=== PATIENT | male | born 1965 | race Hispanic/Latino ===

== ENCOUNTER 2018-04-09 17:29 | Inpatient (IN) | payer MEDICARE ==
[~2018-04-09] VITALS: Ht 162.6 cm; Wt 108.6 kg
[~2018-04-09 17:29] MED LIST: ASPI-1181 PO; CARV12.511 PO; CLOP75TA14 PO; GABA-529 PO; INSU100I21 SQ; LIRA0.6P SQ; LOSA25TA21 PO; SIMV40TA59 PO; SITA100T12 PO; TERB250T4 PO
[2018-04-09 17:59] LABS: EOSINOPHILS % (AUTO) 1.6 % (0.0-8.0); HEMATOCRIT 28.4 % (42-54); MEAN CORPUSCULAR HEMOGLOBIN 28.4 pg (27.0-33.0); MEAN CORPUSCULAR HGB CONC 34.2 g/dL (32.0-36.0); MEAN CORPUSCULAR VOLUME 83.1 fL (79-99); MONOCYTES % (AUTO) 6.7 % (3.0-13.0); NEUTROPHILS % (AUTO) 80.7 % (40.0-77.0); PLATELET COUNT (AUTO) 194 K/uL (130-400); RED BLOOD CELL COUNT(AUTO) 3.41 MIL/uL (4.50-6.20); RED CELL DISTRIBUTION WIDTH 14.5 % (11.0-15.5)
[2018-04-09 18:05] LABS: ABG BASE EXCESS 3.3 mmol/L (-2.0-3.0); ABG HCO3 29.7 mmol/L (21.0-28.0); ABG OXYGEN SATURATION 95.9 % (95.0-99.0); ABG PCO2 52 mmHg (35-48)
[2018-04-09 18:08] LABS: CREATININE 1.5 mg/dL (0.5-1.5); POTASSIUM 4.4 mmol/L (3.5-5.1)
[2018-04-09 18:11] LABS: INR 1.09 (0.85-1.15); PARTIAL THROMBOPLASTIN TIME 33.4 SEC (26.3-35.5); PROTHROMBIN TIME 11.4 SEC (9.6-11.6)
[2018-04-09] MEDS ORDERED: ASPIRIN 325 MG TABLET ONE (18:11)
[2018-04-09] MEDS ORDERED: FUROSEMIDE 10 MG/ML 4ML VIAL ONE (18:11)
[2018-04-09 18:13] LABS: ALBUMIN 2.4 g/dL (3.5-5.0); BILIRUBIN,TOTAL 0.3 mg/dL (0.2-1.0)
[2018-04-09 18:35] LABS: B-TYPE NATRIURETIC PEPTIDE 300 pg/mL (0-100)
[2018-04-09] MEDS ORDERED: ONDANSETRON HCL MDV 20ML 2 MG/ML VIAL IVP PRN (21:45)
[2018-04-09] MEDS ORDERED: CLONIDINE HCL 0.1 MG TABLET PO PRN (21:45)
[2018-04-09] MEDS ORDERED: LACTULOSE 20 GM/30 ML UDCUP PO PRN (21:45)
[2018-04-09] MEDS ORDERED: MORPHINE SULFATE 4 MG/1ML SYG IVP PRN (21:45)
[2018-04-09] MEDS ORDERED: ACETAMINOPHEN 325 MG TAB PO PRN ×2 (21:45)
[2018-04-09] MEDS ORDERED: METHYLPREDNISOLONE SOD SUCC 125MG/2ML VIAL IVP SCH (23:45)
[2018-04-09] MEDS ORDERED: AZITHROMYCIN 500MG+NS 250ML 250 ML IV SCH (23:45)
[2018-04-09] MEDS ORDERED: HYDRALAZINE HCL 20 MG/ML VIAL IV PRN (23:45)
[2018-04-09] MEDS: NITROGLYCERIN 1GM/1 INCH PACKET TD SCH (23:45)
[2018-04-10] MEDS ORDERED: METHYLPREDNISOLONE SOD SUCC 125MG/2ML VIAL ONE ×2 (01:10→08:33)
[2018-04-10] MEDS ORDERED: AZITHROMYCIN 500MG+NS 250ML 250 ML IV ONE (01:11)
[2018-04-10] MEDS ORDERED: NITROGLYCERIN 1GM/1 INCH PACKET TD ONE ×2 (01:11→08:34)
[2018-04-10] MEDS: FUROSEMIDE 10 MG/ML 4ML VIAL IV SCH ×2 (06:00→17:06)
[2018-04-10] MEDS ORDERED: FUROSEMIDE 10 MG/ML 4ML VIAL ONE (06:07)
[2018-04-10 06:20] LABS: BASOPHILS % (AUTO) 0.2 % (0.0-5.0); EOSINOPHILS % (AUTO) 0.1 % (0.0-8.0); HEMATOCRIT 30.7 % (42-54); LYMPHOCYTES % (AUTO) 4.2 % (21.0-51.0); MEAN CORPUSCULAR HGB CONC 33.7 g/dL (32.0-36.0); MEAN CORPUSCULAR VOLUME 83.2 fL (79-99); MONOCYTES % (AUTO) 1.4 % (3.0-13.0); NEUTROPHILS % (AUTO) 94.1 % (40.0-77.0); NUCLEATED RED BLOOD CELLS 0.1 % (0.0-0.19); PLATELET COUNT (AUTO) 203 K/uL (130-400); RED BLOOD CELL COUNT(AUTO) 3.69 MIL/uL (4.50-6.20); RED CELL DISTRIBUTION WIDTH 14.2 % (11.0-15.5); WHITE BLOOD COUNT (AUTO) 13.2 K/uL (4.8-10.8)
[2018-04-10 06:33] LABS: HEMOGLOBIN A1C 8.2 % (4.0-6.0)
[2018-04-10 06:48] LABS: CARBON DIOXIDE 31 mmol/L (21-32); CHLORIDE 103 mmol/L (101-111); CREATINE KINASE MB 1.5 ng/mL (0.5-3.6); CREATINE KINASE, TOTAL 120 U/L (21-232); CREATININE 1.6 mg/dL (0.5-1.5); GLOMERULAR FILTR. RATE CALC 48 mL/min (>60); GLUCOSE,RANDOM 327 mg/dL (70-105); MYOGLOBIN 72 ng/mL (10-92); SODIUM SERUM 137 mmol/L (136-145); THYROID STIMULATING HORMONE 1.02 uIU/mL (0.36-3.74); TROPONIN I < 0.04 ng/mL (0.00-0.06); UREA NITROGEN, BLOOD 31 mg/dL (7-18)
[2018-04-10] MEDS: NITROGLYCERIN 1GM/1 INCH PACKET TD SCH ×3 (07:45→22:31)
[2018-04-10] MEDS ORDERED: FAMOTIDINE 20MG TAB 20 MG TAB ONE (08:33)
[2018-04-10] MEDS: FAMOTIDINE 20MG TAB 20 MG TAB PO SCH ×2 (09:00→22:31)
[2018-04-10] MEDS: METHYLPREDNISOLONE SOD SUCC 125MG/2ML VIAL IVP SCH ×2 (09:00→22:30)
[2018-04-10 11:25] VITALS: BP 151/89
[2018-04-10] MEDS ORDERED: ATOR40TA71 PO (12:21)
[2018-04-10] MEDS ORDERED: NITR0.4T50 SL (12:21)
[2018-04-10] MEDS ORDERED: INSNOV SQ (12:21)
[2018-04-10] MEDS ORDERED: INSU100I21 SQ (12:21)
[2018-04-10] MEDS ORDERED: POTA-9 PO (12:21)
[2018-04-10] MEDS ORDERED: ICOS1CAP PO (12:21)
[2018-04-10] MEDS ORDERED: CARV3.12 PO (12:21)
[2018-04-10] MEDS ORDERED: ISOS30TA6 PO (12:21)
[2018-04-10] MEDS ORDERED: INSU100V12 SQ (12:21)
[2018-04-10] MEDS ORDERED: FURO40TA5 PO (12:21)
[2018-04-10] MEDS ORDERED: DEXTROSE 50%-WATER 50 ML DISP.SYRIN IV PRN (12:45)
[2018-04-10] MEDS ORDERED: GLUCAGON 1MG KIT 1 MG ML IM PRN (12:45)
[2018-04-10] MEDS: LEVOFLOXACIN 500 MG/D5W 100 ML 100 ML IV SCH (13:02)
[2018-04-10] MEDS ORDERED: NITROGLYCERIN 0.4 MG SL TAB SL SCH (14:45)
[2018-04-10] MEDS: INSULIN HUMULIN R 100 UNIT/ML 3ML SQ SCH ×4 (16:30→22:49)
[2018-04-10 16:35] VITALS: BP 184/79
[2018-04-10] MEDS: BUDESONIDE 0.5 MG/2 ML INH IH SCH (19:02)
[2018-04-10 19:39] VITALS: BP 153/77
[2018-04-10] MEDS: ATORVASTATIN CALCIUM 40 MG TABLET PO SCH (22:31)
[2018-04-10] MEDS: CARVEDILOL 3.125 MG TABLET PO SCH (22:31)
[2018-04-10 23:35] VITALS: BP 142/69
[2018-04-11] VITALS (7 sets, daily range): BP systolic 100–162; BP diastolic 56–84
[2018-04-11 05:11] LABS: HEMATOCRIT 31.6 % (42-54); MEAN CORPUSCULAR HEMOGLOBIN 27.5 pg (27.0-33.0); MEAN CORPUSCULAR HGB CONC 33.7 g/dL (32.0-36.0); MEAN CORPUSCULAR VOLUME 81.5 fL (79-99); PLATELET COUNT (AUTO) 270 K/uL (130-400); RED BLOOD CELL COUNT(AUTO) 3.87 MIL/uL (4.50-6.20); WHITE BLOOD COUNT (AUTO) 16.3 K/uL (4.8-10.8)
[2018-04-11 05:19] LABS: CREATININE 1.6 mg/dL (0.5-1.5); POTASSIUM 4.4 mmol/L (3.5-5.1)
[2018-04-11 05:24] LABS: B-TYPE NATRIURETIC PEPTIDE 515 pg/mL (0-100)
[2018-04-11] MEDS: NITROGLYCERIN 1GM/1 INCH PACKET TD SCH ×3 (06:08→23:19)
[2018-04-11] MEDS: FUROSEMIDE 10 MG/ML 4ML VIAL IV SCH ×2 (06:08→16:30)
[2018-04-11] MEDS: INSULIN HUMULIN R 100 UNIT/ML 3ML SQ SCH ×4 (06:11→20:43)
[2018-04-11] MEDS: BUDESONIDE 0.5 MG/2 ML INH IH SCH ×2 (07:33→18:28)
[2018-04-11] MEDS: ASPIRIN 81 MG EC TAB PO SCH (09:24)
[2018-04-11] MEDS: ISOSORBIDE MONO 30MG TAB SR PO SCH (09:25)
[2018-04-11] MEDS: METHYLPREDNISOLONE SOD SUCC 125MG/2ML VIAL IVP SCH ×2 (09:25→20:35)
[2018-04-11] MEDS: FAMOTIDINE 20MG TAB 20 MG TAB PO SCH ×2 (09:25→20:34)
[2018-04-11] MEDS: CARVEDILOL 3.125 MG TABLET PO SCH ×2 (09:25→20:34)
[2018-04-11] MEDS: CLOPIDOGREL BISULFATE 75 MG TAB PO SCH (09:25)
[2018-04-11] MEDS: LOSARTAN 50 MG TABLET PO SCH (09:26)
[2018-04-11] MEDS: LEVOFLOXACIN 500 MG/D5W 100 ML 100 ML IV SCH (11:37)
[2018-04-11] MEDS: DOXYCYCLINE 100MG+NS 250ML 250 ML IV SCH ×2 (13:06→20:35)
[2018-04-11] MEDS: ATORVASTATIN CALCIUM 40 MG TABLET PO SCH (20:35)
[2018-04-12 03:58] LABS: HEMATOCRIT 30.8 % (42-54); MEAN CORPUSCULAR HEMOGLOBIN 28.1 pg (27.0-33.0); MEAN CORPUSCULAR HGB CONC 34.5 g/dL (32.0-36.0); MEAN CORPUSCULAR VOLUME 81.3 fL (79-99); PLATELET COUNT (AUTO) 289 K/uL (130-400); RED BLOOD CELL COUNT(AUTO) 3.79 MIL/uL (4.50-6.20); RED CELL DISTRIBUTION WIDTH 14.1 % (11.0-15.5); WHITE BLOOD COUNT (AUTO) 16.9 K/uL (4.8-10.8)
[2018-04-12 03:59] LABS: CREATININE 1.8 mg/dL (0.5-1.5); POTASSIUM 4.2 mmol/L (3.5-5.1)
[2018-04-12 04:04] VITALS: BP 118/68
[2018-04-12] MEDS: INSULIN HUMULIN R 100 UNIT/ML 3ML SQ SCH ×6 (05:35→22:33)
[2018-04-12] MEDS: FUROSEMIDE 10 MG/ML 4ML VIAL IV SCH ×2 (05:35→17:12)
[2018-04-12] MEDS: BUDESONIDE 0.5 MG/2 ML INH IH SCH ×2 (06:50→18:55)
[2018-04-12 07:30] VITALS: BP 128/73
[2018-04-12] MEDS: LEVOFLOXACIN 500 MG/D5W 100 ML 100 ML IV SCH (07:48)
[2018-04-12] MEDS: ASPIRIN 81 MG EC TAB PO SCH (07:48)
[2018-04-12] MEDS: METHYLPREDNISOLONE SOD SUCC 125MG/2ML VIAL IVP SCH (07:48)
[2018-04-12] MEDS: FAMOTIDINE 20MG TAB 20 MG TAB PO SCH ×2 (07:48→20:32)
[2018-04-12] MEDS: ISOSORBIDE MONO 30MG TAB SR PO SCH (07:49)
[2018-04-12] MEDS: LOSARTAN 50 MG TABLET PO SCH (07:49)
[2018-04-12] MEDS: CLOPIDOGREL BISULFATE 75 MG TAB PO SCH (07:49)
[2018-04-12] MEDS: CARVEDILOL 3.125 MG TABLET PO SCH ×2 (07:49→20:32)
[2018-04-12] MEDS: DOXYCYCLINE 100MG+NS 250ML 250 ML IV SCH (10:09)
[2018-04-12 11:20] VITALS: BP 149/84
[2018-04-12 16:05] VITALS: BP 156/76
[2018-04-12 19:31] VITALS: BP 138/77
[2018-04-12] MEDS: ATORVASTATIN CALCIUM 40 MG TABLET PO SCH (20:32)
[2018-04-12 23:20] VITALS: BP 109/65
[2018-04-13 03:47] LABS: HEMATOCRIT 32.5 % (42-54); MEAN CORPUSCULAR HGB CONC 33.5 g/dL (32.0-36.0); MEAN CORPUSCULAR VOLUME 80.5 fL (79-99); PLATELET COUNT (AUTO) 328 K/uL (130-400); RED BLOOD CELL COUNT(AUTO) 4.04 MIL/uL (4.50-6.20); RED CELL DISTRIBUTION WIDTH 13.9 % (11.0-15.5); WHITE BLOOD COUNT (AUTO) 16.3 K/uL (4.8-10.8)
[2018-04-13 03:59] VITALS: BP 117/65
[2018-04-13 04:00] LABS: B-TYPE NATRIURETIC PEPTIDE 221 pg/mL (0-100)
[2018-04-13 04:12] LABS: CREATININE 1.6 mg/dL (0.5-1.5); POTASSIUM 3.7 mmol/L (3.5-5.1)
[2018-04-13] MEDS: FUROSEMIDE 10 MG/ML 4ML VIAL IV SCH (06:05)
[2018-04-13] MEDS: INSULIN HUMULIN R 100 UNIT/ML 3ML SQ SCH ×4 (06:20→21:11)
[2018-04-13] MEDS: BUDESONIDE 0.5 MG/2 ML INH IH SCH ×2 (06:25→18:29)
[2018-04-13 08:02] VITALS: BP 118/65
[2018-04-13] MEDS: CARVEDILOL 3.125 MG TABLET PO SCH ×2 (10:10→21:18)
[2018-04-13] MEDS: PREDNISONE 10 MG TABLET PO SCH (10:10)
[2018-04-13] MEDS: LOSARTAN 50 MG TABLET PO SCH (10:10)
[2018-04-13] MEDS: CLOPIDOGREL BISULFATE 75 MG TAB PO SCH (10:10)
[2018-04-13] MEDS: FAMOTIDINE 20MG TAB 20 MG TAB PO SCH ×2 (10:11→21:18)
[2018-04-13] MEDS: ASPIRIN 81 MG EC TAB PO SCH (10:11)
[2018-04-13] MEDS: LEVOFLOXACIN 500 MG/D5W 100 ML 100 ML IV SCH (10:11)
[2018-04-13] MEDS: ISOSORBIDE MONO 30MG TAB SR PO SCH (10:11)
[2018-04-13] MEDS: FUROSEMIDE 40 MG TABLET PO SCH ×2 (10:11→16:33)
[2018-04-13 12:12] VITALS: BP 94/61
[2018-04-13 16:00] VITALS: BP 112/62
[2018-04-13] MEDS ORDERED: POTASSIUM CHLORIDE 10% ELIXIR 20 MEQ/15 ML UDCUP PO PRN (16:45)
[2018-04-13] MEDS ORDERED: POTASSIUM CHLORIDE 20 MEQ ERTAB PO PRN (16:45)
[2018-04-13 19:16] VITALS: BP 127/65
[2018-04-13] MEDS ORDERED: POTASSIUM CHLORIDE 10 MEQ/TAB.SA PO ONE ×2 (21:10)
[2018-04-13] MEDS: ATORVASTATIN CALCIUM 40 MG TABLET PO SCH (21:17)
[2018-04-14] VITALS (7 sets, daily range): BP systolic 98–163; BP diastolic 56–88
[2018-04-14 04:42] LABS: MEAN CORPUSCULAR HEMOGLOBIN 28.2 pg (27.0-33.0); MEAN CORPUSCULAR HGB CONC 34.9 g/dL (32.0-36.0); MEAN CORPUSCULAR VOLUME 80.7 fL (79-99); PLATELET COUNT (AUTO) 316 K/uL (130-400); RED BLOOD CELL COUNT(AUTO) 4.21 MIL/uL (4.50-6.20); WHITE BLOOD COUNT (AUTO) 16.7 K/uL (4.8-10.8)
[2018-04-14 04:50] LABS: CREATININE 1.7 mg/dL (0.5-1.5); POTASSIUM 3.8 mmol/L (3.5-5.1)
[2018-04-14 05:03] LABS: B-TYPE NATRIURETIC PEPTIDE 130 pg/mL (0-100)
[2018-04-14] MEDS ORDERED: POTASSIUM CHLORIDE 10 MEQ/TAB.SA PO ONE ×4 (05:15→21:22)
[2018-04-14] MEDS: INSULIN HUMULIN R 100 UNIT/ML 3ML SQ SCH ×4 (06:01→21:19)
[2018-04-14] MEDS: BUDESONIDE 0.5 MG/2 ML INH IH SCH ×2 (06:23→18:13)
[2018-04-14] MEDS: PREDNISONE 10 MG TABLET PO SCH (09:46)
[2018-04-14] MEDS: CARVEDILOL 3.125 MG TABLET PO SCH ×2 (09:46→21:27)
[2018-04-14] MEDS: FAMOTIDINE 20MG TAB 20 MG TAB PO SCH ×2 (09:46→21:27)
[2018-04-14] MEDS: ISOSORBIDE MONO 30MG TAB SR PO SCH (09:46)
[2018-04-14] MEDS: LEVOFLOXACIN 500 MG/D5W 100 ML 100 ML IV SCH (09:46)
[2018-04-14] MEDS: CLOPIDOGREL BISULFATE 75 MG TAB PO SCH (09:46)
[2018-04-14] MEDS: ASPIRIN 81 MG EC TAB PO SCH (09:46)
[2018-04-14] MEDS: LOSARTAN 50 MG TABLET PO SCH (09:46)
[2018-04-14] MEDS: INSULIN GLARGINE 100 UNITS/ML 10 ML VIAL SQ SCH (21:18)
[2018-04-14] MEDS: ATORVASTATIN CALCIUM 40 MG TABLET PO SCH (21:27)
[2018-04-15 04:05] VITALS: BP 130/78
[2018-04-15 04:34] LABS: HEMATOCRIT 36.4 % (42-54); MEAN CORPUSCULAR HEMOGLOBIN 26.9 pg (27.0-33.0); MEAN CORPUSCULAR HGB CONC 33.3 g/dL (32.0-36.0); MEAN CORPUSCULAR VOLUME 80.7 fL (79-99); PLATELET COUNT (AUTO) 335 K/uL (130-400); RED BLOOD CELL COUNT(AUTO) 4.51 MIL/uL (4.50-6.20); RED CELL DISTRIBUTION WIDTH 13.9 % (11.0-15.5); WHITE BLOOD COUNT (AUTO) 18.3 K/uL (4.8-10.8)
[2018-04-15 04:47] LABS: CREATININE 1.4 mg/dL (0.5-1.5); POTASSIUM 3.9 mmol/L (3.5-5.1)
[2018-04-15] MEDS: INSULIN HUMULIN R 100 UNIT/ML 3ML SQ SCH ×4 (06:17→22:21)
[2018-04-15] MEDS: INSULIN GLARGINE 100 UNITS/ML 10 ML VIAL SQ SCH ×2 (06:23→22:20)
[2018-04-15] MEDS: BUDESONIDE 0.5 MG/2 ML INH IH SCH ×2 (06:23→18:44)
[2018-04-15 08:06] VITALS: BP 116/73
[2018-04-15] MEDS: ISOSORBIDE MONO 30MG TAB SR PO SCH (08:59)
[2018-04-15] MEDS: CLOPIDOGREL BISULFATE 75 MG TAB PO SCH (08:59)
[2018-04-15] MEDS: PREDNISONE 10 MG TABLET PO SCH (08:59)
[2018-04-15] MEDS: CARVEDILOL 3.125 MG TABLET PO SCH ×2 (08:59→22:29)
[2018-04-15] MEDS: FAMOTIDINE 20MG TAB 20 MG TAB PO SCH ×2 (08:59→22:28)
[2018-04-15] MEDS: ASPIRIN 81 MG EC TAB PO SCH (08:59)
[2018-04-15] MEDS ORDERED: CEFTAZIDIME 1GM+NS 50ML 50 ML IV SCH (09:00)
[2018-04-15] MEDS: LOSARTAN 50 MG TABLET PO SCH (09:00)
[2018-04-15] MEDS: CEFTAZIDIME PENTAHYDRATE 1 GM/VIAL IVP SCH ×2 (09:00→22:29)
[2018-04-15] MEDS: LEVOFLOXACIN 500 MG/D5W 100 ML 100 ML IV SCH (10:06)
[2018-04-15 11:23] VITALS: BP 92/58
[2018-04-15 16:36] VITALS: BP 127/70
[2018-04-15 20:02] VITALS: BP 132/74
[2018-04-15] MEDS: ATORVASTATIN CALCIUM 40 MG TABLET PO SCH (22:28)
[2018-04-15 23:52] VITALS: BP 154/79
[2018-04-16 03:34] VITALS: BP 135/70
[2018-04-16 05:06] LABS: HEMATOCRIT 36.7 % (42-54); MEAN CORPUSCULAR HEMOGLOBIN 27.4 pg (27.0-33.0); MEAN CORPUSCULAR HGB CONC 33.4 g/dL (32.0-36.0); MEAN CORPUSCULAR VOLUME 81.9 fL (79-99); PLATELET COUNT (AUTO) 355 K/uL (130-400); RED BLOOD CELL COUNT(AUTO) 4.48 MIL/uL (4.50-6.20); WHITE BLOOD COUNT (AUTO) 19.3 K/uL (4.8-10.8)
[2018-04-16 05:09] LABS: CREATININE 1.6 mg/dL (0.5-1.5); POTASSIUM 4.4 mmol/L (3.5-5.1)
[2018-04-16 05:37] LABS: B-TYPE NATRIURETIC PEPTIDE 141 pg/mL (0-100)
[2018-04-16] MEDS: BUDESONIDE 0.5 MG/2 ML INH IH SCH ×2 (06:15→18:38)
[2018-04-16] MEDS: INSULIN GLARGINE 100 UNITS/ML 10 ML VIAL SQ SCH ×2 (06:16→21:21)
[2018-04-16] MEDS: INSULIN HUMULIN R 100 UNIT/ML 3ML SQ SCH ×4 (06:17→21:20)
[2018-04-16 07:00] VITALS: BP 113/63
[2018-04-16] MEDS: CEFTAZIDIME PENTAHYDRATE 1 GM/VIAL IVP SCH ×2 (09:42→21:16)
[2018-04-16] MEDS: PREDNISONE 10 MG TABLET PO SCH (09:44)
[2018-04-16] MEDS: CLOPIDOGREL BISULFATE 75 MG TAB PO SCH (09:44)
[2018-04-16] MEDS: CARVEDILOL 3.125 MG TABLET PO SCH ×2 (09:45→21:17)
[2018-04-16] MEDS: ISOSORBIDE MONO 30MG TAB SR PO SCH (09:45)
[2018-04-16] MEDS: ASPIRIN 81 MG EC TAB PO SCH (09:45)
[2018-04-16] MEDS: FAMOTIDINE 20MG TAB 20 MG TAB PO SCH ×2 (09:45→21:17)
[2018-04-16] MEDS: FUROSEMIDE 20 MG TABLET PO SCH (09:45)
[2018-04-16] MEDS: LOSARTAN 50 MG TABLET PO SCH (09:46)
[2018-04-16] MEDS: LEVOFLOXACIN 500 MG/D5W 100 ML 100 ML IV SCH (10:14)
[2018-04-16 11:00] VITALS: BP 133/69
[2018-04-16 16:00] VITALS: BP 127/66
[2018-04-16 19:48] VITALS: BP 127/72
[2018-04-16] MEDS: ATORVASTATIN CALCIUM 40 MG TABLET PO SCH (21:16)
[2018-04-16 23:30] VITALS: BP 127/63
[2018-04-17 03:53] VITALS: BP 123/65
[2018-04-17] MEDS: INSULIN GLARGINE 100 UNITS/ML 10 ML VIAL SQ SCH ×2 (06:11→21:22)
[2018-04-17] MEDS: INSULIN HUMULIN R 100 UNIT/ML 3ML SQ SCH ×4 (06:12→21:24)
[2018-04-17] MEDS: BUDESONIDE 0.5 MG/2 ML INH IH SCH ×2 (06:13→17:36)
[2018-04-17 06:19] LABS: HEMATOCRIT 34.4 % (42-54); MEAN CORPUSCULAR HEMOGLOBIN 27.1 pg (27.0-33.0); MEAN CORPUSCULAR HGB CONC 33.4 g/dL (32.0-36.0); PLATELET COUNT (AUTO) 322 K/uL (130-400); RED BLOOD CELL COUNT(AUTO) 4.25 MIL/uL (4.50-6.20); WHITE BLOOD COUNT (AUTO) 19.4 K/uL (4.8-10.8)
[2018-04-17 06:29] LABS: CREATININE 1.4 mg/dL (0.5-1.5); POTASSIUM 3.8 mmol/L (3.5-5.1)
[2018-04-17 07:00] VITALS: BP 136/78
[2018-04-17] MEDS: CARVEDILOL 3.125 MG TABLET PO SCH ×2 (08:38→21:20)
[2018-04-17] MEDS: LOSARTAN 50 MG TABLET PO SCH (08:39)
[2018-04-17] MEDS: FAMOTIDINE 20MG TAB 20 MG TAB PO SCH ×2 (08:39→21:20)
[2018-04-17] MEDS: CLOPIDOGREL BISULFATE 75 MG TAB PO SCH (08:39)
[2018-04-17] MEDS: ISOSORBIDE MONO 30MG TAB SR PO SCH (08:39)
[2018-04-17] MEDS: FUROSEMIDE 20 MG TABLET PO SCH (08:40)
[2018-04-17] MEDS: CEFTAZIDIME PENTAHYDRATE 1 GM/VIAL IVP SCH ×2 (08:42→21:20)
[2018-04-17] MEDS: ASPIRIN 81 MG EC TAB PO SCH (08:42)
[2018-04-17] MEDS ORDERED: PREDNISONE 5 MG TABLET PO SCH (09:00)
[2018-04-17] MEDS: LEVOFLOXACIN 500 MG/D5W 100 ML 100 ML IV SCH (09:48)
[2018-04-17] MEDS ORDERED: FLUCONAZOLE 200 MG/NS 100 ML 100 ML IV SCH (10:30)
[2018-04-17 11:00] VITALS: BP 121/61
[2018-04-17 16:00] VITALS: BP 118/68
[2018-04-17 19:52] VITALS: BP 141/74
[2018-04-17] MEDS: ATORVASTATIN CALCIUM 40 MG TABLET PO SCH (21:20)
[2018-04-17 23:25] VITALS: BP 117/61
[2018-04-18 03:30] VITALS: BP 141/68
[2018-04-18 04:03] LABS: HEMATOCRIT 34.8 % (42-54); MEAN CORPUSCULAR HGB CONC 34.3 g/dL (32.0-36.0); MEAN CORPUSCULAR VOLUME 81.8 fL (79-99); PLATELET COUNT (AUTO) 300 K/uL (130-400); RED BLOOD CELL COUNT(AUTO) 4.25 MIL/uL (4.50-6.20); RED CELL DISTRIBUTION WIDTH 14.1 % (11.0-15.5)
[2018-04-18] MEDS: BUDESONIDE 0.5 MG/2 ML INH IH SCH ×2 (05:14→18:48)
[2018-04-18] MEDS: INSULIN HUMULIN R 100 UNIT/ML 3ML SQ SCH ×4 (06:45→21:00)
[2018-04-18] MEDS: INSULIN GLARGINE 100 UNITS/ML 10 ML VIAL SQ SCH ×2 (06:46→21:34)
[2018-04-18 07:39] VITALS: BP 139/63
[2018-04-18] MEDS: CEFTAZIDIME PENTAHYDRATE 1 GM/VIAL IVP SCH ×2 (10:07→21:40)
[2018-04-18] MEDS: FAMOTIDINE 20MG TAB 20 MG TAB PO SCH ×2 (10:08→21:41)
[2018-04-18] MEDS: ASPIRIN 81 MG EC TAB PO SCH (10:08)
[2018-04-18] MEDS: CLOPIDOGREL BISULFATE 75 MG TAB PO SCH (10:08)
[2018-04-18] MEDS: CARVEDILOL 3.125 MG TABLET PO SCH ×2 (10:08→21:41)
[2018-04-18] MEDS: FUROSEMIDE 20 MG TABLET PO SCH (10:08)
[2018-04-18] MEDS: ISOSORBIDE MONO 30MG TAB SR PO SCH (10:08)
[2018-04-18] MEDS: LOSARTAN 50 MG TABLET PO SCH (10:09)
[2018-04-18] MEDS: FLUCONAZOLE 200 MG/NS 100 ML 100 ML IV SCH (10:09)
[2018-04-18] MEDS: LEVOFLOXACIN 500 MG/D5W 100 ML 100 ML IV SCH (10:09)
[2018-04-18 11:24] VITALS: BP 142/73
[2018-04-18 16:16] VITALS: BP 138/80
[2018-04-18 19:42] VITALS: BP 151/91
[2018-04-18] MEDS: ATORVASTATIN CALCIUM 40 MG TABLET PO SCH (21:40)
[2018-04-18 23:56] VITALS: BP 150/84
[2018-04-19 03:46] LABS: MEAN CORPUSCULAR HEMOGLOBIN 26.9 pg (27.0-33.0); MEAN CORPUSCULAR HGB CONC 33.4 g/dL (32.0-36.0); MEAN CORPUSCULAR VOLUME 80.5 fL (79-99); PLATELET COUNT (AUTO) 335 K/uL (130-400); RED BLOOD CELL COUNT(AUTO) 4.85 MIL/uL (4.50-6.20); WHITE BLOOD COUNT (AUTO) 19.4 K/uL (4.8-10.8)
[2018-04-19 03:54] LABS: CREATININE 1.3 mg/dL (0.5-1.5); POTASSIUM 4.5 mmol/L (3.5-5.1)
[2018-04-19 03:58] VITALS: BP 129/61
[2018-04-19 04:16] LABS: B-TYPE NATRIURETIC PEPTIDE 97 pg/mL (0-100)
[2018-04-19] MEDS: BUDESONIDE 0.5 MG/2 ML INH IH SCH (06:43)
[2018-04-19] MEDS: INSULIN HUMULIN R 100 UNIT/ML 3ML SQ SCH (06:53)
[2018-04-19 07:30] VITALS: BP 128/62
[2018-04-19] MEDS ORDERED: INSULIN LISPRO 100 UNIT/ML 3ML SQ SCH (07:30)
[2018-04-19] MEDS: FAMOTIDINE 20MG TAB 20 MG TAB PO SCH (08:59)
[2018-04-19] MEDS: CEFTAZIDIME PENTAHYDRATE 1 GM/VIAL IVP SCH (08:59)
[2018-04-19] MEDS: FUROSEMIDE 20 MG TABLET PO SCH (08:59)
[2018-04-19] MEDS: ISOSORBIDE MONO 30MG TAB SR PO SCH (08:59)
[2018-04-19] MEDS: LOSARTAN 50 MG TABLET PO SCH (09:00)
[2018-04-19] MEDS: CARVEDILOL 3.125 MG TABLET PO SCH (09:00)
[2018-04-19] MEDS: CLOPIDOGREL BISULFATE 75 MG TAB PO SCH (09:00)
[2018-04-19] MEDS: FLUCONAZOLE 200 MG/NS 100 ML 100 ML IV SCH (09:00)
[2018-04-19] MEDS: ASPIRIN 81 MG EC TAB PO SCH (09:00)
[2018-04-19 11:28] VITALS: BP 101/48
[2018-04-19 16:02] VITALS: BP 92/56
== END 2018-04-19 17:28 | disposition home or self-care (01) | DRG 291 ==
LOC: EDH 17:29 → EDHIP 18:20 → 4CH 04-10 09:33 → 2DH 04-11 14:48
PROVIDERS: ADMIT Family Medicine; ATTEND Family Medicine
PROC: 5A09357 Assistance with Respiratory Ventilation, Less than 24 Consecutive Hours, Continuous Positive Airway Pressure (ICD-10-PCS; principal; 2018-04-10)
PROC: 5A09357 Assistance with Respiratory Ventilation, Less than 24 Consecutive Hours, Continuous Positive Airway Pressure (ICD-10-PCS; 2018-04-11)
DX: I13.0 Hypertensive heart and chronic kidney disease with heart failure and stage 1 through stage 4 chronic kidney disease, or unspecified chronic kidney disease (principal); I50.33 Acute on chronic diastolic (congestive) heart failure; J96.21 Acute and chronic respiratory failure with hypoxia; J18.9 Pneumonia, unspecified organism; E11.22 Type 2 diabetes mellitus with diabetic chronic kidney disease; N18.3 Chronic kidney disease, stage 3 (moderate); Z99.81 Dependence on supplemental oxygen; J96.22 Acute and chronic respiratory failure with hypercapnia; J44.0 Chronic obstructive pulmonary disease with (acute) lower respiratory infection; J44.1 Chronic obstructive pulmonary disease with (acute) exacerbation; E66.2 Morbid (severe) obesity with alveolar hypoventilation; Z68.41 Body mass index [BMI] 40.0-44.9, adult; D64.9 Anemia, unspecified; E11.65 Type 2 diabetes mellitus with hyperglycemia; E78.5 Hyperlipidemia, unspecified; I25.10 Atherosclerotic heart disease of native coronary artery without angina pectoris; N49.2 Inflammatory disorders of scrotum; T38.0X5A Adverse effect of glucocorticoids and synthetic analogues, initial encounter; I25.2 Old myocardial infarction; Z72.0 Tobacco use; Z74.01 Bed confinement status; Z79.4 Long term (current) use of insulin; Z95.5 Presence of coronary angioplasty implant and graft; Z91.19 Patient's noncompliance with other medical treatment and regimen; Z83.3 Family history of diabetes mellitus; Z82.49 Family history of ischemic heart disease and other diseases of the circulatory system
CPT/HCPCS: 36415; 36600; 71045; 71046; 71250; 80048; 80053; 82550; 82553; 82803; 82947; 82948; 83036; 83874; 83880; 84443; 84484; 85025; 85027; 85610; 85730; 87040; 93005; 93306; 94640; 94660; 94664; A4218; J0456; J0713; J1450; J1815; J1940; J1956; J2930; J3490; J7512

== ENCOUNTER → 2019-05-29 | Outpatient (CLI) | payer MEDICARE ==
[~2019-05-29] MED LIST changes: -ASPI-1181 PO; +ASPI-449 PO; +ATOR40TA69 PO; -CARV12.511 PO; +CARV3.12 PO; -CLOP75TA14 PO; +CLOP75TA32 PO; +FURO40TA5 PO; -GABA-529 PO; -INSU100I21 SQ; +INSU100I26 SQ; +ISOS30TA6 PO; -LIRA0.6P SQ; -LOSA25TA21 PO; +POTA10TA14 PO; +PREG50 PO; -SIMV40TA59 PO; -TERB250T4 PO
[2019-05-29 12:08] VITALS: BP 140/86
--- NOTE | 2019-05-29 12:26 | NUR ---
Eschar crosshatched by Dr. Salas using scalpel. No bleeding or drainage noted. No pain reported by patient.
== END | disposition home or self-care (01) ==
LOC: WHH 10:00
PROVIDERS: ATTEND Podiatrist Foot & Ankle Surgery
DX: E11.621 Type 2 diabetes mellitus with foot ulcer (principal); L97.421 Non-pressure chronic ulcer of left heel and midfoot limited to breakdown of skin; L97.411 Non-pressure chronic ulcer of right heel and midfoot limited to breakdown of skin; E11.42 Type 2 diabetes mellitus with diabetic polyneuropathy; E11.22 Type 2 diabetes mellitus with diabetic chronic kidney disease; I12.9 Hypertensive chronic kidney disease with stage 1 through stage 4 chronic kidney disease, or unspecified chronic kidney disease; N18.4 Chronic kidney disease, stage 4 (severe); E11.52 Type 2 diabetes mellitus with diabetic peripheral angiopathy with gangrene; I96 Gangrene, not elsewhere classified; I25.10 Atherosclerotic heart disease of native coronary artery without angina pectoris; I25.2 Old myocardial infarction; J44.9 Chronic obstructive pulmonary disease, unspecified; E66.01 Morbid (severe) obesity due to excess calories; E78.2 Mixed hyperlipidemia; F17.200 Nicotine dependence, unspecified, uncomplicated; G47.30 Sleep apnea, unspecified; Z99.81 Dependence on supplemental oxygen; Z79.82 Long term (current) use of aspirin; Z79.899 Other long term (current) drug therapy; Z95.5 Presence of coronary angioplasty implant and graft
CPT/HCPCS: G0463; L3260

== ENCOUNTER 2019-06-13 14:21 | Inpatient (IN) | payer MEDICARE ==
[~2019-06-13] VITALS: Ht 162.6 cm; Wt 108.2 kg
[2019-06-13 15:06] LABS: BASOPHILS % (AUTO) 0.8 % (0.0-5.0); LYMPHOCYTES % (AUTO) 10.7 % (21.0-51.0); MEAN CORPUSCULAR HEMOGLOBIN 26.9 pg (27.0-33.0); MEAN CORPUSCULAR HGB CONC 32.7 g/dL (32.0-36.0); MEAN CORPUSCULAR VOLUME 82.1 fL (79-99); MONOCYTES % (AUTO) 6.1 % (3.0-13.0); NEUTROPHILS % (AUTO) 80.4 % (40.0-77.0); PLATELET COUNT (AUTO) 353 K/uL (130-400); RED BLOOD CELL COUNT(AUTO) 3.53 MIL/uL (4.50-6.20); RED CELL DISTRIBUTION WIDTH 14.6 % (11.0-15.5); WHITE BLOOD COUNT (AUTO) 16.6 K/uL (4.8-10.8)
[2019-06-13 15:14] LABS: CREATININE 2.2 mg/dL (0.5-1.5); POTASSIUM 4.6 mmol/L (3.5-5.1)
[2019-06-13 15:18] LABS: INR 1.09 (0.85-1.15); PARTIAL THROMBOPLASTIN TIME 38.5 SEC (26.3-35.5); PROTHROMBIN TIME 11.4 SEC (9.6-11.6)
[2019-06-13 15:19] LABS: ALBUMIN 1.9 g/dL (3.5-5.0); BILIRUBIN,TOTAL 0.2 mg/dL (0.2-1.0)
[2019-06-13] MEDS ORDERED: CEFTRIAXONE SODIUM 1 GM ONE (16:24)
[2019-06-13] MEDS ORDERED: ACETAMINOPHEN EXTRA STRENGTH 500 MG TABLET ONE (16:24)
[2019-06-13] MEDS ORDERED: SODIUM CHLORIDE 0.9% 50 ML IV ONE (16:25)
[2019-06-13] MEDS ORDERED: MORPHINE SULFATE 2 MG/ML 1ML SYG ONE (21:39)
[2019-06-13] MEDS ORDERED: MEROPENEM 500 MG VIAL ONE (21:39)
[2019-06-13] MEDS ORDERED: VANCOMYCIN 1GM+NS 250ML 250 ML IV ONE (22:39)
[2019-06-14] MEDS ORDERED: VANCOMYCIN 1GM+NS 250ML 250 ML IV ONE (01:19)
[2019-06-14] MEDS ORDERED: ONDANSETRON HCL 4 MG/2 ML VIAL IVP PRN (01:30)
[2019-06-14] MEDS ORDERED: DEXTROSE 50%-WATER 50 ML DISP.SYRIN IV PRN (01:30)
[2019-06-14] MEDS ORDERED: GLUCAGON 1MG KIT 1 MG ML IM PRN (01:30)
[2019-06-14] MEDS ORDERED: MORPHINE SULFATE 2 MG/ML 1ML SYG ONE (01:34)
[2019-06-14] MEDS ORDERED: VANCOMYCIN PROTOCOL PER PHARMACY IV SCH (01:45)
[2019-06-14] MEDS ORDERED: ACETAMINOPHEN 325 MG TAB ONE (03:47)
[2019-06-14 05:05] LABS: BASOPHILS % (AUTO) 1.2 % (0.0-5.0); EOSINOPHILS % (AUTO) 2.3 % (0.0-8.0); HEMATOCRIT 27.1 % (42-54); LYMPHOCYTES % (AUTO) 13.4 % (21.0-51.0); MEAN CORPUSCULAR HEMOGLOBIN 27.2 pg (27.0-33.0); MEAN CORPUSCULAR HGB CONC 33.4 g/dL (32.0-36.0); MEAN CORPUSCULAR VOLUME 81.5 fL (79-99); MONOCYTES % (AUTO) 5.4 % (3.0-13.0); NEUTROPHILS % (AUTO) 77.7 % (40.0-77.0); PLATELET COUNT (AUTO) 330 K/uL (130-400); RED BLOOD CELL COUNT(AUTO) 3.33 MIL/uL (4.50-6.20); RED CELL DISTRIBUTION WIDTH 14.5 % (11.0-15.5)
[2019-06-14 05:20] LABS: ALBUMIN 1.6 g/dL (3.5-5.0); BILIRUBIN,TOTAL 0.2 mg/dL (0.2-1.0); CREATININE 1.9 mg/dL (0.5-1.5); CRP QUANTITATIVE 111.7 mg/L (0.00-9.0); POTASSIUM 4.9 mmol/L (3.5-5.1); TOTAL PROTEIN, SERUM 7.2 g/dL (6.0-8.3)
[2019-06-14] MEDS: MEROPENEM 500 MG VIAL IVP SCH ×3 (06:00→22:01)
[2019-06-14] MEDS ORDERED: MEROPENEM 500 MG VIAL ONE (06:00)
[2019-06-14 06:07] LABS: ERYTHROCYTE SEDIMENTATION RATE 138 MM/HR (0-20)
[2019-06-14 07:30] VITALS: BP 146/73
[2019-06-14] MEDS: INSULIN R PO SS1 SQ SCH ×4 (07:30→20:13)
[2019-06-14] MEDS: INSULIN HUMULIN R 100 UNIT/ML 3ML SQ SCH ×4 (07:30→21:00)
--- NOTE | 2019-06-14 10:33 | NUR ---
DR BARBER PAGED, CALL BACK RETURNED, AWARE OF PT IN ROOM 428, MD TO STOP BY TO SEE PT.
[2019-06-14 12:00] VITALS: BP 162/81
[2019-06-14] MEDS ORDERED: COMPOUND IV REFRIGERATED 1 EACH IVSOLN MISC PRN (12:15)
[2019-06-14] MEDS: MORPHINE SULFATE 2 MG/ML 1ML SYG IVP PRN ×2 (14:23→23:03)
[2019-06-14 16:00] VITALS: BP 142/69
[2019-06-14] MEDS: FLUCONAZOLE 100 MG TAB PO SCH (16:34)
[2019-06-14] MEDS: ZYVOX 600 MG TAB PO SCH (18:17)
[2019-06-14 20:00] VITALS: BP 144/79
[2019-06-14] MEDS ORDERED: VANCOMYCIN 750MG + NS 250 ML IV SCH ×2 (21:00)
[2019-06-14] MEDS: CARVEDILOL 3.125 MG TABLET PO SCH (22:01)
[2019-06-14] MEDS: PREGABALIN 25 MG CAP PO SCH (22:01)
[2019-06-15] VITALS: BP 166/75
[2019-06-15] MEDS: ZYVOX 600 MG TAB PO SCH ×2 (03:49→16:12)
[2019-06-15 04:00] VITALS: BP 133/68
[2019-06-15] MEDS: MEROPENEM 500 MG VIAL IVP SCH ×3 (05:23→21:02)
[2019-06-15 05:34] LABS: BASOPHILS % (AUTO) 1.1 % (0.0-5.0); EOSINOPHILS % (AUTO) 1.4 % (0.0-8.0); LYMPHOCYTES % (AUTO) 14.4 % (21.0-51.0); MEAN CORPUSCULAR HEMOGLOBIN 27.3 pg (27.0-33.0); MEAN CORPUSCULAR VOLUME 82.7 fL (79-99); MONOCYTES % (AUTO) 7.2 % (3.0-13.0); NEUTROPHILS % (AUTO) 75.9 % (40.0-77.0); PLATELET COUNT (AUTO) 298 K/uL (130-400); RED BLOOD CELL COUNT(AUTO) 3.27 MIL/uL (4.50-6.20); RED CELL DISTRIBUTION WIDTH 14.2 % (11.0-15.5); WHITE BLOOD COUNT (AUTO) 16.6 K/uL (4.8-10.8)
[2019-06-15 05:43] LABS: CREATININE 1.8 mg/dL (0.5-1.5); POTASSIUM 4.8 mmol/L (3.5-5.1)
[2019-06-15] MEDS: INSULIN HUMULIN R 100 UNIT/ML 3ML SQ SCH (06:10)
[2019-06-15] MEDS: INSULIN R PO SS1 SQ SCH ×4 (06:12→20:51)
[2019-06-15 08:00] VITALS: BP 130/72
[2019-06-15] MEDS: ISOSORBIDE MONO 30MG TAB SR PO SCH (09:31)
[2019-06-15] MEDS: POTASSIUM CHLORIDE 10 MEQ/TAB.SA PO SCH (09:31)
[2019-06-15] MEDS: ATORVASTATIN CALCIUM 40 MG TABLET PO SCH (09:31)
[2019-06-15] MEDS: FUROSEMIDE 40 MG TABLET PO SCH (09:31)
[2019-06-15] MEDS: CARVEDILOL 3.125 MG TABLET PO SCH ×2 (09:32→21:02)
[2019-06-15] MEDS: CLOPIDOGREL BISULFATE 75 MG TAB PO SCH (10:46)
[2019-06-15] MEDS: ASPIRIN 81MG TAB.CHEW PO SCH (10:46)
[2019-06-15 12:00] VITALS: BP 127/67
--- NOTE | 2019-06-15 14:57 | NUR ---
Nutrition Intervention: Nutrition consult for diabetic teaching. Pt. admitted with Dx of Diabetic foot ulcer. Pt. on 75gm CCD diet with good p.o. intake, per pt. Labs reviewed(Alb 1.6, BUN 36, Creat 1.8, GFR 42, BG 145, HgbA1c 8.0%). Pt. with severe visceral protein depletion. Protein supplementation contraindicated due to elevated renal labs. LBM: 06/12/19. SR-16, elastic. Pt. with 2+ edema to BLE. BMI: 43.1, obesity grade 3. Pt. educated on diabetic diet and provided with education material. Pt. verbalized understanding. Recommendations: 1) Rec. 75gm CCD Renal Non dialysis diet. 2) Rec. 500mg Vit C BID and 220mg Zn Sulfate QD to help promote wound healing. 3) Diabetic diet education given to patient. 4) Continue to monitor pt's nutritional status. 5) Consult RD as nutrition concerns arise. Addendum: 06/15/19 at [address] Amended: Links added.
[2019-06-15 16:00] VITALS: BP 128/75
[2019-06-15] MEDS: FLUCONAZOLE 100 MG TAB PO SCH (16:12)
[2019-06-15] MEDS: MORPHINE SULFATE 2 MG/ML 1ML SYG IVP PRN ×2 (16:13→21:03)
--- NOTE | 2019-06-15 18:30 | NUR ---
miguelito note met with patient and states resides at home with spouse, and daughter and grandkids. and uses walker for ambulation rollator. has a wc on order. [facility] did explain to him . he wants to send him to [facility], he states he has been there 3 times in the past, las time about a 1 month ago. and is in agreement, choice letter and LEEANN forms obtained. Addendum: 06/15/19 at 1832 by SOL MCKNIGHT CM Amended: Links added.
[2019-06-15 20:19] VITALS: BP 149/76
[2019-06-15] MEDS: PREGABALIN 25 MG CAP PO SCH (21:02)
[2019-06-16] VITALS: BP 150/75
[2019-06-16] MEDS: ZYVOX 600 MG TAB PO SCH ×2 (03:25→15:44)
[2019-06-16 04:22] VITALS: BP 146/79
[2019-06-16 04:37] LABS: BASOPHILS % (AUTO) 0.7 % (0.0-5.0); HEMATOCRIT 27.6 % (42-54); LYMPHOCYTES % (AUTO) 14.8 % (21.0-51.0); MEAN CORPUSCULAR HGB CONC 32.9 g/dL (32.0-36.0); MEAN CORPUSCULAR VOLUME 82.1 fL (79-99); MONOCYTES % (AUTO) 6.6 % (3.0-13.0); NEUTROPHILS % (AUTO) 75.9 % (40.0-77.0); PLATELET COUNT (AUTO) 313 K/uL (130-400); RED BLOOD CELL COUNT(AUTO) 3.37 MIL/uL (4.50-6.20); RED CELL DISTRIBUTION WIDTH 14.4 % (11.0-15.5); WHITE BLOOD COUNT (AUTO) 16.9 K/uL (4.8-10.8)
[2019-06-16 04:47] LABS: CREATININE 1.7 mg/dL (0.5-1.5); POTASSIUM 4.7 mmol/L (3.5-5.1)
[2019-06-16] MEDS: MEROPENEM 500 MG VIAL IVP SCH ×3 (05:37→22:24)
[2019-06-16] MEDS: INSULIN R PO SS1 SQ SCH ×4 (06:27→22:22)
[2019-06-16 08:00] VITALS: BP 131/69
[2019-06-16] MEDS: ISOSORBIDE MONO 30MG TAB SR PO SCH (08:29)
[2019-06-16] MEDS: FUROSEMIDE 40 MG TABLET PO SCH (08:29)
[2019-06-16] MEDS: ATORVASTATIN CALCIUM 40 MG TABLET PO SCH (08:29)
[2019-06-16] MEDS: ASPIRIN 81MG TAB.CHEW PO SCH (08:30)
[2019-06-16] MEDS: POTASSIUM CHLORIDE 10 MEQ/TAB.SA PO SCH (08:30)
[2019-06-16] MEDS: CLOPIDOGREL BISULFATE 75 MG TAB PO SCH (08:31)
[2019-06-16] MEDS: CARVEDILOL 3.125 MG TABLET PO SCH ×2 (08:31→22:24)
[2019-06-16 12:00] VITALS: BP 134/78
[2019-06-16] MEDS: FLUCONAZOLE 100 MG TAB PO SCH (15:44)
[2019-06-16 16:00] VITALS: BP 138/64
[2019-06-16] MEDS: MORPHINE SULFATE 2 MG/ML 1ML SYG IVP PRN (17:42)
--- NOTE | 2019-06-16 18:21 | NUR ---
B/L WOUND CX RESULT THIS THEATER MANAGER CONTACTED LAB ABT B/L WOUND CX RESULTS, LAB SAID THE CULTURE SENT ON 06/15/2019 WAS PICKED UP BY [facility] INSTEAD OF GOING TO [facility] FOR IT TO BE RESULTED, EITHER WAY, IT STILL WOULD HAVE TAKEN THE SAME DURATION BETWEEN 3-4 DAYS FOR THE RESULT. HENCE PENDING B/L WOUND CX RESULTS FROM [facility].
[2019-06-16] MEDS ORDERED: LACTULOSE 20 GM/30 ML UDCUP PO PRN (19:00)
[2019-06-16 21:33] VITALS: BP 147/76
[2019-06-16] MEDS: PREGABALIN 25 MG CAP PO SCH (22:23)
[2019-06-17 00:14] VITALS: BP 136/78
[2019-06-17 03:35] VITALS: BP 150/82
[2019-06-17] MEDS: ZYVOX 600 MG TAB PO SCH ×3 (03:51→16:31)
[2019-06-17] MEDS: MEROPENEM 500 MG VIAL IVP SCH ×2 (05:14→12:37)
[2019-06-17] MEDS: INSULIN R PO SS1 SQ SCH ×3 (05:52→16:33)
[2019-06-17 08:00] VITALS: BP 150/82
[2019-06-17] MEDS: ISOSORBIDE MONO 30MG TAB SR PO SCH (08:48)
[2019-06-17] MEDS: POTASSIUM CHLORIDE 10 MEQ/TAB.SA PO SCH (08:48)
[2019-06-17] MEDS: FUROSEMIDE 40 MG TABLET PO SCH (08:48)
[2019-06-17] MEDS: ATORVASTATIN CALCIUM 40 MG TABLET PO SCH (08:48)
[2019-06-17] MEDS: CARVEDILOL 3.125 MG TABLET PO SCH (08:49)
[2019-06-17] MEDS: CLOPIDOGREL BISULFATE 75 MG TAB PO SCH (08:49)
[2019-06-17] MEDS: ASPIRIN 81MG TAB.CHEW PO SCH (08:49)
--- NOTE | 2019-06-17 10:00 | NUR ---
ACCEPTED AT [facility] WILL COMPLETE MOT AND ADVISE PRIMARY MARILOU Addendum: 06/17/19 at 1146 by MARSHA SANDY RN CM Amended: Links added.
[2019-06-17 11:00] VITALS: BP 128/68
--- NOTE | 2019-06-17 11:11 | NUR ---
DR. ELISABETH BARBER CONTACTED ABT PT D/C PLANING, HE STATED HE MIGHT STOP BY TO SEE PT, BUT KEEP DOING THE WET-TO-DRY DRESSING WHILES WAITING FOR CULTURE AND SENSITIVITY REPORT. KEEP BILATERAL HEELS ELEVATED ON PILLOW AND KEEP ON WITH ABX. NURSING WILL CONTINUE TO MONITOR PT.
--- NOTE | 2019-06-17 11:55 | NUR ---
DISCREPANCY CHART REVIEWED, TELEMETRY MONITORING STARTED YESTERDAY PT ADMITTED MED SURG ON 06/13, NO TELEMETRY, NO ICU UNTIL YESTERDAY Addendum: 06/17/19 at 1158 by MARSHA SANDY RN CM Amended: Links added.
--- NOTE | 2019-06-17 15:37 | NUR ---
[facility] CONSULT PATIENT ASSESSED ORDERED: PATIENT PRESENTS WITH MULTIPLE PRESSURE ULCERS TO BILATERAL FEET; [facility] RECOMMENDATIONS SUBMITTED. Addendum: 06/17/19 at 1539 by ROGERIO CHANG LVN LVN W Amended: Links added.
[2019-06-17 16:00] VITALS: BP 130/75
[2019-06-17] MEDS: FLUCONAZOLE 100 MG TAB PO SCH ×2 (16:22→16:31)
--- NOTE | 2019-06-17 16:37 | NUR ---
DR. ELISABETH BARBER PAGED AT THIS TIME FOR CLEARANCE, PENDING CALL BACK.
--- NOTE | 2019-06-17 18:45 | NUR ---
PT D/C PT D/C TO [facility], PT TO CONTINUE WITH ABX AND WOUND CARE TREATMENT AT [facility], PT NON WEIGHT BEARING, IV LEFT IN PLACE FOR ABX TREATMENT, D/C TEACHING PROVIDED, PT VERBALIZED UNDERSTANDING OF D/C INSTRUCTION, EMS HERE TO TAKE PT AT 1825 TO [facility].
== END 2019-06-17 18:25 | DRG 264 ==
LOC: EDH 14:21 → INTOOBSV 21:15 → EDHIP 21:15 → OBSVTOIN 21:15 → 4AH 06-14 07:30
PROVIDERS: ADMIT Internal Medicine; ATTEND Internal Medicine
PROC: 0JBR0ZZ Excision of Left Foot Subcutaneous Tissue and Fascia, Open Approach (ICD-10-PCS; principal; 2019-06-13)
PROC: 0JBQ0ZZ Excision of Right Foot Subcutaneous Tissue and Fascia, Open Approach (ICD-10-PCS; 2019-06-13)
DX: E11.52 Type 2 diabetes mellitus with diabetic peripheral angiopathy with gangrene (principal); I50.32 Chronic diastolic (congestive) heart failure; I13.0 Hypertensive heart and chronic kidney disease with heart failure and stage 1 through stage 4 chronic kidney disease, or unspecified chronic kidney disease; L03.115 Cellulitis of right lower limb; L03.116 Cellulitis of left lower limb; I96 Gangrene, not elsewhere classified; N17.9 Acute kidney failure, unspecified; N18.4 Chronic kidney disease, stage 4 (severe); Z68.41 Body mass index [BMI] 40.0-44.9, adult; E11.621 Type 2 diabetes mellitus with foot ulcer; D64.9 Anemia, unspecified; E11.22 Type 2 diabetes mellitus with diabetic chronic kidney disease; E11.42 Type 2 diabetes mellitus with diabetic polyneuropathy; E66.01 Morbid (severe) obesity due to excess calories; E78.2 Mixed hyperlipidemia; I25.10 Atherosclerotic heart disease of native coronary artery without angina pectoris; I87.2 Venous insufficiency (chronic) (peripheral); I89.0 Lymphedema, not elsewhere classified; L89.620 Pressure ulcer of left heel, unstageable; L89.610 Pressure ulcer of right heel, unstageable; Z79.4 Long term (current) use of insulin; I25.2 Old myocardial infarction; Z82.49 Family history of ischemic heart disease and other diseases of the circulatory system; Z83.3 Family history of diabetes mellitus; Z95.5 Presence of coronary angioplasty implant and graft; Z79.899 Other long term (current) drug therapy
CPT/HCPCS: 36415; 73718; 80048; 80053; 82948; 83036; 83605; 85025; 85610; 85651; 85730; 86140; 87040; 87070; 87076; 87077; 87186; 93005; 93925; 93970; 97039; G0378; J0696; J1815; J2185; J3370; J7030

== ENCOUNTER 2019-07-30 19:44 | Inpatient (IN) | payer MEDICARE ==
[~2019-07-30] VITALS: Ht 162.6 cm; Wt 104.6 kg
[2019-07-30 20:24] LABS: BASOPHILS % (AUTO) 0.3 % (0.0-5.0); EOSINOPHILS % (AUTO) 0.5 % (0.0-8.0); HEMATOCRIT 22.8 % (42-54); LYMPHOCYTES % (AUTO) 8.6 % (21.0-51.0); MEAN CORPUSCULAR HEMOGLOBIN 27.5 pg (27.0-33.0); MEAN CORPUSCULAR HGB CONC 32.9 g/dL (32.0-36.0); MEAN CORPUSCULAR VOLUME 83.4 fL (79-99); MONOCYTES % (AUTO) 6.4 % (3.0-13.0); NEUTROPHILS % (AUTO) 84.2 % (40.0-77.0); PLATELET COUNT (AUTO) 171 K/uL (130-400); RED BLOOD CELL COUNT(AUTO) 2.73 MIL/uL (4.50-6.20); RED CELL DISTRIBUTION WIDTH 16.5 % (11.0-15.5); WHITE BLOOD COUNT (AUTO) 19.9 K/uL (4.8-10.8)
[2019-07-30] MEDS ORDERED: DOPAMINE 800MG/D5 250ML 250 ML IV ONE (20:29)
[2019-07-30 20:33] LABS: INR 1.03 (0.85-1.15); PARTIAL THROMBOPLASTIN TIME 34.6 SEC (26.3-35.5); PROTHROMBIN TIME 10.8 SEC (9.6-11.6)
[2019-07-30 20:41] LABS: ALBUMIN 1.5 g/dL (3.5-5.0); BILIRUBIN,TOTAL 0.3 mg/dL (0.2-1.0); CREATININE 4.2 mg/dL (0.5-1.5); POTASSIUM 4.9 mmol/L (3.5-5.1); TOTAL PROTEIN, SERUM 7.6 g/dL (6.0-8.3)
[2019-07-30 20:57] LABS: B-TYPE NATRIURETIC PEPTIDE 585 pg/mL (0-100)
[2019-07-30] MEDS ORDERED: ZOSYN 3.375GM+NS 50ML 50 ML IV ONE (21:04)
[2019-07-30] MEDS ORDERED: VANCOMYCIN 1GM+NS 250ML 500 ML IV ONE (21:12)
[2019-07-30 21:14] LABS: APPEARANCE,URINE Turbid (CLEAR); BILIRUBIN,URINE Negative (NEGATIVE); COLOR,URINE Yellow (YELLOW); GLUCOSE, URINE (UA) >=1000 mg/dL (NEGATIVE); KETONES,URINE Negative (NEGATIVE); LEUKOCYTE ESTERASE ,URINE Negative (NEGATIVE); NITRATE,URINE Negative (NEGATIVE); OCCULT BLOOD,URINE Small (NEGATIVE); PROTEIN,URINE 300 mg/dL (NEGATIVE)
[2019-07-30 21:25] LABS: BACTERIA,URINE Moderate /HPF (None Seen)
[2019-07-30 21:26] LABS: AMORPHOUS SEDIMENT,UR Moderate /LPF (None Seen); MUCUS,URINE Few LPF (None Seen)
[2019-07-30 22:00] LABS: ABG BASE EXCESS -8.5 mmol/L (-2.0-3.0); ABG HCO3 20.4 mmol/L (21.0-28.0); ABG OXYGEN SATURATION 97.3 % (95.0-99.0); ABG PCO2 56 mmHg (35-48)
[2019-07-30] MEDS ORDERED: ACETAMINOPHEN EXTRA STRENGTH 500 MG TABLET ONE (23:01)
[2019-07-30] MEDS ORDERED: ONDANSETRON HCL 4 MG/2 ML VIAL ONE (23:16)
[2019-07-30] MEDS ORDERED: MORPHINE SULFATE 2 MG/ML 1ML SYG ONE (23:16)
[2019-07-31] MEDS ORDERED: SODIUM BICARB 50MEQ 50ML VIAL ONE ×3 (00:37→09:36)
[2019-07-31] MEDS ORDERED: SODIUM BICARB 50MEQ 50ML VIAL IV ONE (00:45)
[2019-07-31] MEDS ORDERED: ZOSYN 3.375GM+NS 50ML 50 ML IV SCH (01:30)
[2019-07-31] MEDS ORDERED: SODIUM CHLORIDE 0.9% 1000ML 1,000 ML IV SCH (01:30)
[2019-07-31] MEDS ORDERED: VANCOMYCIN 1GM+NS 250ML 250 ML IV SCH (01:30)
[2019-07-31] MEDS ORDERED: SODIUM CHLORIDE 0.9% 1000ML 1,000 ML IV ONE (01:40)
[2019-07-31] MEDS ORDERED: VANCOMYCIN PROTOCOL PER PHARMACY IV SCH (01:45)
[2019-07-31] MEDS ORDERED: IPRATROPIUM/ALBUTEROL SULFATE 3 ML SOLUTION IH ONE ×3 (02:00→09:41)
[2019-07-31] MEDS ORDERED: FUROSEMIDE 10 MG/ML 2ML VIAL ONE ×3 (02:11→18:07)
[2019-07-31] MEDS: INSULIN HUMULIN R 100 UNIT/ML 3ML SQ SCH ×3 (06:00→18:00)
[2019-07-31 06:53] LABS: ABG BASE EXCESS -8.3 mmol/L (-2.0-3.0); ABG HCO3 20.3 mmol/L (21.0-28.0); ABG OXYGEN SATURATION 97.2 % (95.0-99.0); ABG PCO2 54 mmHg (35-48)
[2019-07-31] MEDS ORDERED: ZOSYN 3.375GM+NS 50ML 50 ML IV ONE ×2 (07:33→18:40)
[2019-07-31] MEDS ORDERED: FAMOTIDINE/PF 20 MG/2 ML VIAL IV ONE ×2 (07:34→20:50)
[2019-07-31] MEDS: FAMOTIDINE/PF 20 MG/2 ML VIAL IV SCH (09:00)
[2019-07-31] MEDS: ZOSYN 3.375GM+NS 50ML 50 ML IV SCH ×2 (09:00→21:00)
[2019-07-31 09:06] LABS: ABG BASE EXCESS -8.6 mmol/L (-2.0-3.0); ABG OXYGEN SATURATION 97.4 % (95.0-99.0); ABG PCO2 53 mmHg (35-48)
[2019-07-31] MEDS ORDERED: LEVOFLOXACIN 500 MG/D5W 100 ML 100 ML IV SCH (09:15)
[2019-07-31] MEDS ORDERED: FUROSEMIDE 10 MG/ML 2ML VIAL IV SCH (10:00)
--- NOTE | 2019-07-31 10:00 | NUR ---
REPOSITIONED PATIENT, SITTING POSITION. ADJUSTED PILLOWS TO ALLOW FOR INCREASED TIDAL VOLUMES Addendum: 07/31/19 at 1016 by KENJI LEBLANC Amended: Links added.
[2019-07-31 11:30] LABS: ABG BASE EXCESS -4.3 mmol/L (-2.0-3.0); ABG HCO3 23.3 mmol/L (21.0-28.0); ABG OXYGEN SATURATION 97.8 % (95.0-99.0); ABG PCO2 53 mmHg (35-48)
[2019-07-31] MEDS: LINEZOLID 600 MG/ISO-OSM 300 ML IV SCH (13:00)
[2019-07-31] MEDS: METHYLPREDNISOLONE SOD SUCC 125MG/2ML VIAL IVP SCH ×2 (15:15→23:15)
[2019-07-31] MEDS: SODIUM BICARB 8.4% 50ML SYRING 150 MEQ in DEXTROSE 5%-WATER 1,000 ML IV SCH (15:15)
[2019-07-31] MEDS ORDERED: METHYLPREDNISOLONE SOD SUCC 40MG/ML 1ML ONE ×2 (15:19→23:21)
[2019-07-31] MEDS ORDERED: LEVOFLOXACIN 500 MG/D5W 100 ML 100 ML ONE (15:26)
--- NOTE | 2019-07-31 15:36 | NUR ---
[facility] CONSULT PATIENT ASSESSED REQUESTED: PATIENT PRESENTS WITH STAGE III PRESSURE ULCER TO LT HEEL; [facility] RECOMMENDATIONS SUBMITTED. Addendum: 07/31/19 at 1537 by ROGERIO CHANG LVN LVN W Amended: Links added.
[2019-07-31] MEDS: FUROSEMIDE 10 MG/ML 4ML VIAL IV SCH (18:00)
[2019-07-31 18:25] LABS: ABG HCO3 22.7 mmol/L (21.0-28.0); ABG OXYGEN SATURATION 97.5 % (95.0-99.0); ABG PCO2 53 mmHg (35-48)
[2019-07-31] MEDS: IPRATROPIUM/ALBUTEROL SULFATE 3 ML SOLUTION IH SCH ×2 (18:32→21:22)
[2019-07-31] MEDS ORDERED: VANCOMYCIN 1.5 GM in SODIUM CHLORIDE 0.9% 250 ML IV SCH (21:00)
[2019-07-31] MEDS ORDERED: OSELTAMIVIR PHOSPHATE 75 MG CAP PO SCH (21:00)
[2019-08-01] MEDS: LINEZOLID 600 MG/ISO-OSM 300 ML IV SCH ×2 (01:00→13:00)
[2019-08-01] MEDS: IPRATROPIUM/ALBUTEROL SULFATE 3 ML SOLUTION IH SCH ×6 (01:41→23:27)
[2019-08-01] MEDS ORDERED: FUROSEMIDE 10 MG/ML 4ML VIAL ONE ×2 (01:59→10:13)
[2019-08-01] MEDS ORDERED: FUROSEMIDE 10 MG/ML 2ML VIAL ONE (01:59)
[2019-08-01] MEDS: FUROSEMIDE 10 MG/ML 4ML VIAL IV SCH ×3 (02:00→17:40)
[2019-08-01] MEDS ORDERED: ZOSYN 3.375GM+NS 50ML 50 ML IV ONE ×2 (02:22→15:31)
[2019-08-01 04:00] LABS: HEMATOCRIT 22.9 % (42-54); MEAN CORPUSCULAR HEMOGLOBIN 27.2 pg (27.0-33.0); MEAN CORPUSCULAR HGB CONC 32.8 g/dL (32.0-36.0); MEAN CORPUSCULAR VOLUME 82.8 fL (79-99); NUCLEATED RED BLOOD CELLS 0.1 % (0.0-0.19); PLATELET COUNT (AUTO) 166 K/uL (130-400); RED BLOOD CELL COUNT(AUTO) 2.77 MIL/uL (4.50-6.20); RED CELL DISTRIBUTION WIDTH 16.2 % (11.0-15.5); WHITE BLOOD COUNT (AUTO) 17.9 K/uL (4.8-10.8)
[2019-08-01 04:11] LABS: INR 1.13 (0.85-1.15); PARTIAL THROMBOPLASTIN TIME 33.8 SEC (26.3-35.5); PROTHROMBIN TIME 11.8 SEC (9.6-11.6)
[2019-08-01 04:12] LABS: ALBUMIN 1.3 g/dL (3.5-5.0); BILIRUBIN,TOTAL 0.5 mg/dL (0.2-1.0); CREATININE 4.9 mg/dL (0.5-1.5); POTASSIUM 5.3 mmol/L (3.5-5.1); TOTAL PROTEIN, SERUM 7.3 g/dL (6.0-8.3)
[2019-08-01 04:23] LABS: ABG BASE EXCESS -6.8 mmol/L (-2.0-3.0); ABG HCO3 19.5 mmol/L (21.0-28.0); ABG OXYGEN SATURATION 97.2 % (95.0-99.0); ABG PCO2 42 mmHg (35-48)
[2019-08-01 04:32] LABS: % IRON SATURATION 30.9 % (30-44)
[2019-08-01] MEDS: INSULIN HUMULIN R 100 UNIT/ML 3ML SQ SCH ×4 (06:00→17:54)
[2019-08-01] MEDS ORDERED: COMPOUND PO MISCELLANEOUS 1 EACH MISC MISC PRN (06:30)
[2019-08-01] MEDS: METHYLPREDNISOLONE SOD SUCC 125MG/2ML VIAL IVP SCH ×2 (07:15→15:15)
[2019-08-01] MEDS ORDERED: METHYLPREDNISOLONE SOD SUCC 40MG/ML 1ML ONE ×2 (08:19→15:30)
[2019-08-01] MEDS: FAMOTIDINE/PF 20 MG/2 ML VIAL IV SCH (09:00)
[2019-08-01] MEDS: OSELTAMIVIR SUSP 15 MG/ML (6 CAPS/29ML) PO SCH ×2 (09:00)
[2019-08-01] MEDS: ZOSYN 3.375GM+NS 50ML 50 ML IV SCH ×2 (09:00→21:14)
[2019-08-01] MEDS ORDERED: IPRATROPIUM/ALBUTEROL SULFATE 3 ML SOLUTION IH ONE ×2 (09:27→13:39)
[2019-08-01] MEDS: SODIUM BICARB 8.4% 50ML SYRING 150 MEQ in DEXTROSE 5%-WATER 1,000 ML IV SCH (10:25)
[2019-08-01] MEDS ORDERED: INSULIN HUMULIN R 100 UNIT/ML 3ML ONE (14:53)
[2019-08-01 15:50] VITALS: BP 128/66
[2019-08-01] MEDS ORDERED: MIDODRINE HCL 5 MG TABLET PO PRN (18:45)
[2019-08-01 20:00] VITALS: BP 142/78
[2019-08-01] MEDS: HYDROCODONE/ACETAMINOPHEN 5/325 MG TAB PO PRN (21:26)
[2019-08-01 21:40] LABS: ABG BASE EXCESS -5.9 mmol/L (-2.0-3.0); ABG HCO3 19.4 mmol/L (21.0-28.0); ABG OXYGEN SATURATION 97.5 % (95.0-99.0); ABG PCO2 37 mmHg (35-48)
[2019-08-02] VITALS (16 sets, daily range): BP systolic 99–168; BP diastolic 47–95
[2019-08-02] MEDS: METHYLPREDNISOLONE SOD SUCC 125MG/2ML VIAL IVP SCH ×2 (00:07→07:15)
[2019-08-02] MEDS: INSULIN HUMULIN R 100 UNIT/ML 3ML SQ SCH ×5 (00:19→23:56)
[2019-08-02] MEDS: LINEZOLID 600 MG/ISO-OSM 300 ML IV SCH ×3 (01:00→23:52)
[2019-08-02] MEDS: FUROSEMIDE 10 MG/ML 4ML VIAL IV SCH ×2 (01:50→09:04)
[2019-08-02] MEDS: IPRATROPIUM/ALBUTEROL SULFATE 3 ML SOLUTION IH SCH ×5 (02:09→18:47)
[2019-08-02 04:10] LABS: ABG BASE EXCESS -6.5 mmol/L (-2.0-3.0); ABG HCO3 19.4 mmol/L (21.0-28.0); ABG OXYGEN SATURATION 97.8 % (95.0-99.0); ABG PCO2 40 mmHg (35-48)
[2019-08-02] MEDS ORDERED: SODIUM BICARB 50MEQ 50ML VIAL ONE (05:33)
[2019-08-02] MEDS ORDERED: DEXTROSE 5%-WATER 1,000 ML IV ONE (05:34)
[2019-08-02] MEDS: SODIUM BICARB 8.4% 50ML SYRING 150 MEQ in DEXTROSE 5%-WATER 1,000 ML IV SCH (05:35)
[2019-08-02 08:42] LABS: BASOPHILS % (AUTO) 0.1 % (0.0-5.0); HEMATOCRIT 24.6 % (42-54); MEAN CORPUSCULAR HEMOGLOBIN 27.6 pg (27.0-33.0); MEAN CORPUSCULAR HGB CONC 33.3 g/dL (32.0-36.0); MONOCYTES % (AUTO) 1.2 % (3.0-13.0); NEUTROPHILS % (AUTO) 95.7 % (40.0-77.0); PLATELET COUNT (AUTO) 204 K/uL (130-400); RED BLOOD CELL COUNT(AUTO) 2.97 MIL/uL (4.50-6.20); RED CELL DISTRIBUTION WIDTH 16.3 % (11.0-15.5); WHITE BLOOD COUNT (AUTO) 13.5 K/uL (4.8-10.8)
[2019-08-02] MEDS: LEVOFLOXACIN 250 MG/D5W 50ML 50 ML IVPB SCH (09:03)
[2019-08-02] MEDS: FAMOTIDINE/PF 20 MG/2 ML VIAL IV SCH (09:03)
[2019-08-02] MEDS: ZOSYN 3.375GM+NS 50ML 50 ML IV SCH ×2 (09:03→19:47)
[2019-08-02 09:06] LABS: ALBUMIN 1.4 g/dL (3.5-5.0); BILIRUBIN,TOTAL 0.4 mg/dL (0.2-1.0); CREATININE 5.5 mg/dL (0.5-1.5); POTASSIUM 5.1 mmol/L (3.5-5.1); TOTAL PROTEIN, SERUM 7.8 g/dL (6.0-8.3)
[2019-08-02] MEDS: HYDROCODONE/ACETAMINOPHEN 5/325 MG TAB PO PRN (09:14)
[2019-08-02] MEDS: OSELTAMIVIR SUSP 15 MG/ML (6 CAPS/29ML) PO SCH ×2 (09:43)
--- NOTE | 2019-08-02 13:12 | NUR ---
DCP CM met with pt discussed dc plans. Pt was admitted from [facility]. Pt is semi-independent prior to admission, prior to SNF lives at home with spouse, daughter, and grandchildren. Pt has own walker and rollator walker, was with [facility] prior to [facility]. Pt states he does not want to go back to [facility] at this time, will consider other facilities if needed once he is more stable, will decide once stable. Pt states his and daughter will be able to assist with transportation and needs as necessary, but will consider other facility beside [facility] once MD recommends. DC plan to home vs SNF. CM to continue to follow up. Addendum: 08/02/19 at 1315 by SOUMYA LUTHER LVN Amended: Links added.
[2019-08-02] MEDS: MORPHINE SULFATE 2 MG/ML 1ML SYG IVP PRN ×2 (15:02→23:49)
--- NOTE | 2019-08-02 16:12 | NUR ---
RD NOTIFICATION PRIMARY DIAGNOSIS: ACURE RESPIRATORY DISEASE, CKF. HX: HTN, MORBID OBESE, HYPERLIPIDEMIA, DIABETIC FOOT ULCER, TEMPORARY HD, DM, ESRD, PENILE PROBLEM. CURRENT DIET: CLEAR LIQUIDS. BMI IS 47.2; CLASSIFIED MORBID OBESE. MEDS: HUMULIN R, PEPCID, LASIX, VANCOMYCIN. LABS: WBC 13.5, PCO2 54, PHCO3 20, BNP 585, BUN 107, CRE 5.5, GFR 12, BG 289, ALB 1.4, TIBC 113, FERRATIN 693. DIABETIC WOUND NOT HEALED PER PT. NPO SINCE MONDAY PER PT. PT HAS RECEIVED DIALYSIS IN THE PAST PER PT. PT HAS GANGRENE AND INFECTION ON HEEL OF FOOT. ON 06/[address] 8[address] RECOMMENDS TO CONTINUE CURRENT DIET AND ADVANCE TOLERATED TO RENAL NON-DIALYSIS. RESTRICT FLUID TO 1500MLS/D. OFFER NEPRO AND TREY BID TO AID WOUND HEALING. RD WILL CONTINUE TO MONITOR AND WILL FOLLOW UP NEEDED. PLEASE NOTIFY RD IF ANY OTHER NUTRITIONAL CONCERNS ARISE. THANK YOU. Addendum: 08/02/19 at [address] Amended: Links added.
--- NOTE | 2019-08-02 16:18 | NUR ---
DR. MELENDREZ VISITED WITH PATIENT. POC DISCUSSED. DR. MELENDREZ AWARE OF BUN CRITICAL LAB VALUE. NEW ORDERS RECEIVED AND CARRIED OUT.
--- NOTE | 2019-08-02 17:16 | NUR ---
PATIENT REFUSED MRI 3 TIMES. THE FIRST TIME HE COMPLAINED OF PAIN. NORCO ADMINISTERED PER EMAR. THE SECOND TIME PATIENT STILL REFUSED EVEN THOUGH HE WAS PRE-MEDICATED WITH MORPHINE PER EMAR. 3RD TIME PATIENT WANTED HIS TO GO WITH HIM. RADIOLOGY ESCORTED TO RADIOLOGY. PT STILL REFUSED. CALLED DR. TORRE TO INFORM HIM OF THIS SITUATION. WAITING FOR CALL BACK.
[2019-08-02] MEDS: FUROSEMIDE 10 MG/ML 10ML VIAL IVP SCH (19:47)
[2019-08-02] MEDS ORDERED: LIDOCAINE HCL 1% MDV 50ML VIAL ONE (20:46)
[2019-08-02] MEDS ORDERED: BUPIVACAINE/PF 0.5% 10ML VIAL ONE (20:46)
[2019-08-02] MEDS ORDERED: INSULIN GLARGINE 100 UNITS/ML 10 ML VIAL SQ SCH (21:00)
[2019-08-02 21:13] LABS: CREATININE 5.3 mg/dL (0.5-1.5); POTASSIUM 4.8 mmol/L (3.5-5.1)
[2019-08-02] MEDS ORDERED: PROPOFOL 10 MG/ML 20ML VIAL IV ONE ×2 (21:26→22:08)
[2019-08-02] MEDS ORDERED: PHENYLEPHRINE HCL 10 MG/ML 1ML VIAL IV ONE (22:37)
[2019-08-02] MEDS ORDERED: FENTANYL CITRATE PF 50 MCG/1 ML 2ML VIAL ONE (22:40)
[2019-08-02 23:09] LABS: HEMATOCRIT 22.3 % (42-54)
[2019-08-02] MEDS ORDERED: HYDROMORPHONE HCL 2 MG/ML VIAL IVP PRN (23:45)
[2019-08-02] MEDS ORDERED: HYDROCODONE/ACETAMINOPHEN 5/325 MG TAB PO PRN (23:45)
[2019-08-02] MEDS ORDERED: MORPHINE SULFATE 2 MG/ML 1ML SYG IM PRN (23:45)
[2019-08-02] MEDS ORDERED: SODIUM CHLORIDE 3% FOR INHALATION 4 ML/AMP VIAL.NEB IH ONE (23:47)
[2019-08-03] VITALS (10 sets, daily range): BP systolic 97–180; BP diastolic 62–91
[2019-08-03] MEDS: SODIUM BICARB 8.4% 50ML SYRING 150 MEQ in DEXTROSE 5%-WATER 1,000 ML IV SCH (00:11)
--- NOTE | 2019-08-03 00:12 | NUR ---
Wound vac to right foot MD rodgers at patient bedside assessing patient post op. Wound vac continues to alarm stating blockage. MD Rodgers stated he would discontinue wound vac. Dr Rodgers removed wound vac to right foot and applied quick clot gauze to wound, placed abd pads, 4x4 gauzes wrapped with kerlix and travis bandage. Per Dr Rodgers he would be by in am to assess right foot wound.
[2019-08-03] MEDS: IPRATROPIUM/ALBUTEROL SULFATE 3 ML SOLUTION IH SCH ×6 (01:39→22:20)
[2019-08-03 04:50] LABS: BASOPHILS % (AUTO) 0.1 % (0.0-5.0); LYMPHOCYTES % (AUTO) 5.1 % (21.0-51.0); MEAN CORPUSCULAR HEMOGLOBIN 27.4 pg (27.0-33.0); MEAN CORPUSCULAR HGB CONC 33.3 g/dL (32.0-36.0); MEAN CORPUSCULAR VOLUME 82.4 fL (79-99); MONOCYTES % (AUTO) 5.1 % (3.0-13.0); NEUTROPHILS % (AUTO) 89.7 % (40.0-77.0); PLATELET COUNT (AUTO) 216 K/uL (130-400); RED BLOOD CELL COUNT(AUTO) 2.48 MIL/uL (4.50-6.20); RED CELL DISTRIBUTION WIDTH 16.3 % (11.0-15.5); WHITE BLOOD COUNT (AUTO) 13.4 K/uL (4.8-10.8)
[2019-08-03 04:58] LABS: HEMATOCRIT 20.5 % (42-54)
--- NOTE | 2019-08-03 05:04 | NUR ---
Critical Lab Paged director consumer hospitalist to inform them of H&H 6.8 20.5, pending physician callback.
[2019-08-03 05:22] LABS: ALBUMIN 1.4 g/dL (3.5-5.0); BILIRUBIN,TOTAL 0.3 mg/dL (0.2-1.0); CREATININE 5.3 mg/dL (0.5-1.5); POTASSIUM 4.7 mmol/L (3.5-5.1); TOTAL PROTEIN, SERUM 6.9 g/dL (6.0-8.3)
[2019-08-03] MEDS: INSULIN HUMULIN R 100 UNIT/ML 3ML SQ SCH ×4 (06:08→22:10)
[2019-08-03] MEDS ORDERED: SODIUM CHLORIDE 0.9% 250 ML IV ONE (06:26)
[2019-08-03] MEDS: FUROSEMIDE 10 MG/ML 10ML VIAL IVP SCH (09:28)
[2019-08-03] MEDS: FAMOTIDINE/PF 20 MG/2 ML VIAL IV SCH (09:29)
[2019-08-03] MEDS: MORPHINE SULFATE 2 MG/ML 1ML SYG IVP PRN ×2 (09:29→23:50)
[2019-08-03] MEDS: ZOSYN 3.375GM+NS 50ML 50 ML IV SCH ×2 (09:29→21:56)
[2019-08-03] MEDS ORDERED: SODIUM CHLORIDE 3% FOR INHALATION 4 ML/AMP VIAL.NEB IH ONE ×2 (09:57→13:42)
[2019-08-03] MEDS: OSELTAMIVIR SUSP 15 MG/ML (6 CAPS/29ML) PO SCH ×2 (10:52)
[2019-08-03] MEDS: LINEZOLID 600 MG/ISO-OSM 300 ML IV SCH ×2 (15:20→23:50)
--- NOTE | 2019-08-03 16:00 | NUR ---
DR. HERNÁNDEZ AWARE OF CONSULT. WILL SEE PT LATER TODAY.
[2019-08-03] MEDS ORDERED: LACTULOSE 20 GM/30 ML UDCUP PO SCH (16:45)
[2019-08-03] MEDS ORDERED: METOCLOPRAMIDE 10 MG/2 ML VIAL IVP SCH ×2 (16:45→22:35)
--- NOTE | 2019-08-03 16:48 | NUR ---
DR GUSTAFSON STATED HE IS NOT SEEING PT ANYMORE. STATES " AND PATIENT ARE HOPELESS". PRIMARY DOCTOR AWARE.
[2019-08-03 16:53] LABS: HEMATOCRIT 24.9 % (42-54)
[2019-08-03] MEDS: EPOETIN ALFA 10,000 UNIT/ML VIAL SQ SCH (18:03)
[2019-08-03] MEDS: INSULIN GLARGINE 100 UNITS/ML 10 ML VIAL SQ SCH ×2 (18:06→22:11)
[2019-08-03] MEDS: FUROSEMIDE 10 MG/ML 4ML VIAL IVP SCH (22:07)
[2019-08-03] MEDS: SULFAMETHOX-TMP DS 800/160 TAB PO SCH (22:08)
[2019-08-03] MEDS: PANTOPRAZOLE SODIUM 40 MG TABLET.DR PO SCH (22:08)
[2019-08-03] MEDS: HYDROCODONE/ACETAMINOPHEN 5/325 MG TAB PO PRN (23:25)
--- NOTE | 2019-08-03 23:49 | NUR ---
IN TO SEE PATIENT. POC DISCUSSED. DRESSING CHANGE DONE BY . MEDICATED PER DANIAL WITH MORPHINE FOR COMPLAINTS OF PAIN AFTER DRESSING CHANGE. SPOUSE AT BEDSIDE. CALL LIGHT WITHIN REACH. WILL CONTINUE TO BE OBSERVED. Addendum: 08/04/19 at 0742 by KOTA MAC RN RN Amended: Links added.
[2019-08-04] VITALS (18 sets, daily range): BP systolic 116–173; BP diastolic 44–109
[2019-08-04] MEDS ORDERED: LORAZEPAM 2 MG/ML 1 ML VIAL IVP ONE (00:30)
--- NOTE | 2019-08-04 00:30 | NUR ---
PATIENT CONSTANTLY DUPLEX TRIMMER LIGHT. NEEDS MET. PATIENT KEEPS WANTING TO GET OOB AND STATES HE HAS ANXIETY. CAROLANN MILTON CALLED AND AWARE. NEW ORDERS RECEIVED FOR ATIVAN 0.5MG IV X 1 DOSE. ATIVAN GIVEN. PATIENT TOLERATED WELL. ASSISTED BACK TO BED. BED ALARM ON. SPOUSE AT BEDSIDE. CALL LIGHT WITHIN REACH. WILL CONTINUE TO BE OBSERVED. Addendum: 08/04/19 at 0745 by KOTA MAC RN RN Amended: Links added.
[2019-08-04] MEDS ORDERED: LORAZEPAM 2 MG/ML 1 ML VIAL ONE (00:56)
[2019-08-04] MEDS: IPRATROPIUM/ALBUTEROL SULFATE 3 ML SOLUTION IH SCH ×7 (01:21→22:04)
[2019-08-04 05:39] LABS: BASOPHILS % (AUTO) 0.4 % (0.0-5.0); EOSINOPHILS % (AUTO) 0.2 % (0.0-8.0); HEMATOCRIT 22.8 % (42-54); LYMPHOCYTES % (AUTO) 10.7 % (21.0-51.0); MEAN CORPUSCULAR HEMOGLOBIN 28.8 pg (27.0-33.0); MEAN CORPUSCULAR HGB CONC 34.4 g/dL (32.0-36.0); MEAN CORPUSCULAR VOLUME 83.7 fL (79-99); MONOCYTES % (AUTO) 6.2 % (3.0-13.0); NEUTROPHILS % (AUTO) 82.5 % (40.0-77.0); PLATELET COUNT (AUTO) 206 K/uL (130-400); RED BLOOD CELL COUNT(AUTO) 2.72 MIL/uL (4.50-6.20); RED CELL DISTRIBUTION WIDTH 15.8 % (11.0-15.5); WHITE BLOOD COUNT (AUTO) 15.6 K/uL (4.8-10.8)
[2019-08-04] MEDS: INSULIN HUMULIN R 100 UNIT/ML 3ML SQ SCH ×4 (05:49→20:00)
[2019-08-04 06:13] LABS: ALBUMIN 1.5 g/dL (3.5-5.0); BILIRUBIN,TOTAL 0.3 mg/dL (0.2-1.0); CREATININE 5.1 mg/dL (0.5-1.5); TOTAL PROTEIN, SERUM 6.6 g/dL (6.0-8.3)
[2019-08-04] MEDS: PANTOPRAZOLE SODIUM 40 MG TABLET.DR PO SCH ×2 (09:00→19:59)
[2019-08-04] MEDS: SULFAMETHOX-TMP DS 800/160 TAB PO SCH (09:00)
[2019-08-04] MEDS: OSELTAMIVIR SUSP 15 MG/ML (6 CAPS/29ML) PO SCH ×2 (09:00)
[2019-08-04] MEDS: ZOSYN 3.375GM+NS 50ML 50 ML IV SCH ×2 (09:38→19:57)
[2019-08-04] MEDS: FUROSEMIDE 10 MG/ML 4ML VIAL IVP SCH ×2 (09:38→20:03)
[2019-08-04] MEDS: LEVOFLOXACIN 250 MG/D5W 50ML 50 ML IVPB SCH (09:38)
[2019-08-04] MEDS: INSULIN GLARGINE 100 UNITS/ML 10 ML VIAL SQ SCH ×2 (09:39→20:00)
[2019-08-04] MEDS ORDERED: KETAMINE 50MG/ML SYRINGE 50 MG/ML DISP.SYRIN IV ONE (10:10)
[2019-08-04] MEDS ORDERED: PROPOFOL 10 MG/ML 20ML VIAL IV ONE (10:18)
[2019-08-04] MEDS ORDERED: GLYCOPYRROLATE 0.2 MG/ML 5 ML VIAL ONE (10:18)
[2019-08-04] MEDS ORDERED: SUCCINYLCHOLINE CHLORIDE 20 MG/ML 10 ML VIAL ONE (10:19)
[2019-08-04] MEDS ORDERED: LIDOCAINE HCL-MPF 2% 5ML VIAL ONE (10:27)
[2019-08-04] MEDS: LINEZOLID 600 MG/ISO-OSM 300 ML IV SCH ×2 (12:10→23:55)
[2019-08-04 13:57] LABS: ABG BASE EXCESS 1.3 mmol/L (-2.0-3.0); ABG HCO3 26.7 mmol/L (21.0-28.0); ABG OXYGEN SATURATION 86.6 % (95.0-99.0); ABG PCO2 45 mmHg (35-48)
[2019-08-04] MEDS: HYDROCODONE/ACETAMINOPHEN 5/325 MG TAB PO PRN (15:02)
[2019-08-04] MEDS ORDERED: ALTEPLASE 2 MG/2 ML IV SCH (15:45)
--- NOTE | 2019-08-04 17:21 | NUR ---
RIGHT FOOT BLEEDING NOTICED SHADOW OF BLOOD ON HIS RIGHT FOOT DRESSING. CALLED DR. TORER AND INFORMED HIM OF THIS. DR. TORRE ORDERS TO JUST REINFORCED DRESSING WITH ABD PAD AND KAI WRAP.
[2019-08-04] MEDS ORDERED: HYDROXYZINE HCL 50 MG/ML VIAL IM PRN (17:45)
[2019-08-04] MEDS: HYDROXYZINE HCL 25 MG TABLET PO PRN ×2 (18:19→19:58)
--- NOTE | 2019-08-05 | NUR ---
ROUNDS PATIENT RESTING IN BED WITH OU CLOSED. EASILY AROUSED. NO COMPLAINTS OF PAIN VOICED AT THIS TIME. CONTINUES TO BE MONITORED. VITALS STABLE. AFEBRILE. RESP EVEN AND UNLABORED. NO SOB NOTED. O2 ON AT 3LPM VIA NASAL CANNULA. DRESSING TO BILATERAL HEELS IN PLACE. RIGHT FOOT WAFFLE BOOT IN PLACE. RLE ELEVATED ON PILLOW. SPOUSE AT BEDSIDE. BED ALARM ON, FALL PRECAUTIONS IN PLACE. NO SIGNS OF DISTRESS NOTED. CALL LIGHT WITHIN REACH. WILL CONTINUE TO BE OBSERVED. Addendum: 08/05/19 at 0107 by KOTA MAC RN RN Amended: Links added.
[2019-08-05] MEDS: IPRATROPIUM/ALBUTEROL SULFATE 3 ML SOLUTION IH SCH ×6 (01:43→22:00)
[2019-08-05 04:02] VITALS: BP 132/67
[2019-08-05] MEDS: INSULIN HUMULIN R 100 UNIT/ML 3ML SQ SCH ×4 (06:16→21:00)
[2019-08-05 06:30] LABS: BASOPHILS % (AUTO) 0.7 % (0.0-5.0); EOSINOPHILS % (AUTO) 1.8 % (0.0-8.0); HEMATOCRIT 22.7 % (42-54); LYMPHOCYTES % (AUTO) 16.2 % (21.0-51.0); MEAN CORPUSCULAR HEMOGLOBIN 27.7 pg (27.0-33.0); MEAN CORPUSCULAR HGB CONC 33.6 g/dL (32.0-36.0); MEAN CORPUSCULAR VOLUME 82.6 fL (79-99); MONOCYTES % (AUTO) 5.5 % (3.0-13.0); NEUTROPHILS % (AUTO) 75.8 % (40.0-77.0); NUCLEATED RED BLOOD CELLS 0.1 % (0.0-0.19); PLATELET COUNT (AUTO) 236 K/uL (130-400); RED BLOOD CELL COUNT(AUTO) 2.75 MIL/uL (4.50-6.20); RED CELL DISTRIBUTION WIDTH 16.1 % (11.0-15.5); WHITE BLOOD COUNT (AUTO) 13.5 K/uL (4.8-10.8)
[2019-08-05 07:02] LABS: ALBUMIN 1.5 g/dL (3.5-5.0); BILIRUBIN,TOTAL 0.3 mg/dL (0.2-1.0); CREATININE 4.7 mg/dL (0.5-1.5); TOTAL PROTEIN, SERUM 6.4 g/dL (6.0-8.3)
[2019-08-05 08:00] VITALS: BP 158/84
[2019-08-05] MEDS: FUROSEMIDE 10 MG/ML 4ML VIAL IVP SCH ×2 (09:03→23:50)
[2019-08-05] MEDS: SULFAMETHOX-TMP DS 800/160 TAB PO SCH (09:03)
[2019-08-05] MEDS: OSELTAMIVIR SUSP 15 MG/ML (6 CAPS/29ML) PO SCH ×2 (09:03)
[2019-08-05] MEDS: PANTOPRAZOLE SODIUM 40 MG TABLET.DR PO SCH ×2 (09:04→23:49)
[2019-08-05] MEDS: INSULIN GLARGINE 100 UNITS/ML 10 ML VIAL SQ SCH (09:24)
[2019-08-05] MEDS: ZOSYN 3.375GM+NS 50ML 50 ML IV SCH ×2 (09:43→23:50)
[2019-08-05] MEDS: HYDROXYZINE HCL 25 MG TABLET PO PRN ×2 (10:18→23:49)
[2019-08-05] MEDS ORDERED: HYDROXYZINE HCL 10 MG TABLET PO SCH (11:00)
[2019-08-05 12:00] VITALS: BP 111/56
[2019-08-05] MEDS: LINEZOLID 600 MG/ISO-OSM 300 ML IV SCH (13:23)
[2019-08-05 16:00] VITALS: BP 131/65
--- NOTE | 2019-08-05 16:30 | NUR ---
CM NOTE RE PLAN OF CARE PT/FAMILY WANT INTERVENTION, INC AMPUTATION---- SPOKE AT LENGTH TO SPOUSE ON PHONE- STATES SHE DOES NOT WANT TO GO BACK TO [facility] WHEN TRANSFER WAS MADE TO [facility], NONE OF THE MEDICATIONS WERE CONTINUE, ALL MEDS ON THE MED REC WERE DCD. PT WAS AT [facility] FOR TWO WEEKS WITH NO ANTIBIOTICS, JUST WOUND CARE. STATES WILLNOT HAVE DR. Mitch PATINO HE DID NOT FOLLOW UP WITH HER . STATES SHE WILL GO BACK TO [facility] BECAUSE THEY SHOWED HER THE MEDICAL RECORD AND ASKED OFR THE CHANCE TO LOOK AFTER HIM AGAIN SPOUSE SPOKE HIGHLY OF DR. TORRE AND WISHES TO BE FOLLOWED BY HIM. STATES THE FOOT IS 'TERRIBLE' AND THAT ONE OF THE DOCS MENTIONED AMPUTATION AND SHE TALKED TO THE PATIENT AND HE BLAKE, OK IF THT IS WHAT IT TAKES TO GET BETTER, ADVISED HER I WOULD RELAY THIS MESSAGE TO DR. TORRE. CONFIRMED MENDY MCCORD RN THAT DR. TORRE IS NOT AWARE OF [facility] CULTURE RESULTS (1225 TODAY) , OK TO CALL CALLED DR. TORRE AND RELAYED THE CULTURE, THE PATIENT AND SPOUSE ATTITUDE TO AMPUATATION AND DR. TORRE STATES HE WILL PUT IN AN ORDER FOR A GENERAL SURGEON FOR AMPUATATION BECAUSE THE PTS WOUND WILL NEVER HEAL WITH THAT BUG. WILL FOLLOW IN AM RE SURGERY. WILL CONTACT [facility] RE PLAN OF CARE.
[2019-08-05 20:00] VITALS: BP 141/77
[2019-08-06] VITALS: BP 141/76
[2019-08-06] MEDS: INSULIN GLARGINE 100 UNITS/ML 10 ML VIAL SQ SCH ×3 (00:05→21:27)
[2019-08-06] MEDS: IPRATROPIUM/ALBUTEROL SULFATE 3 ML SOLUTION IH SCH ×4 (01:13→18:46)
[2019-08-06] MEDS: LINEZOLID 600 MG/ISO-OSM 300 ML IV SCH ×2 (03:19→13:02)
[2019-08-06 04:00] VITALS: BP 139/75
[2019-08-06 04:57] LABS: HEMATOCRIT 21.8 % (42-54); MEAN CORPUSCULAR HEMOGLOBIN 28.2 pg (27.0-33.0); MEAN CORPUSCULAR HGB CONC 33.7 g/dL (32.0-36.0); MEAN CORPUSCULAR VOLUME 83.7 fL (79-99); NUCLEATED RED BLOOD CELLS 0.1 % (0.0-0.19); PLATELET COUNT (AUTO) 216 K/uL (130-400); RED BLOOD CELL COUNT(AUTO) 2.61 MIL/uL (4.50-6.20); RED CELL DISTRIBUTION WIDTH 16.6 % (11.0-15.5); WHITE BLOOD COUNT (AUTO) 15.7 K/uL (4.8-10.8)
[2019-08-06 05:14] LABS: CREATININE 4.3 mg/dL (0.5-1.5); POTASSIUM 3.7 mmol/L (3.5-5.1)
[2019-08-06] MEDS: INSULIN HUMULIN R 100 UNIT/ML 3ML SQ SCH ×4 (07:30→21:26)
[2019-08-06] MEDS ORDERED: HYDROXYZINE HCL 25 MG TABLET PO PRN (07:45)
[2019-08-06 08:00] VITALS: BP 117/63
--- NOTE | 2019-08-06 08:21 | NUR ---
PT/FAMILY WANT INTERVENTION, INC AMPUTATION SPOKE AT LENGTH TO SPOUSE ON PHONE- STATES SHE DOES NOT WANT TO GO BACK TO [facility] WHEN TRANSFER WAS MADE TO [facility], NONE OF THE MEDICATIONS WERE CONTINUE, ALL MEDS ON THE MED REC WERE DCD. PT WAS AT [facility] FOR TWO WEEKS WITH NO ANTIBIOTICS, JUST WOUND CARE. STATES WILLNOT HAVE DR. Mitch PATINO HE DID NOT FOLLOW UP WITH HER . STATES SHE WILL GO BACK TO [facility] BECAUSE THEY SHOWED HER THE MEDICAL RECORD AND ASKED OFR THE CHANCE TO LOOK AFTER HIM AGAIN SPOUSE SPOKE HIGHLY OF DR. TORRE AND WISHES TO BE FOLLOWED BY HIM. STATES THE FOOT IS 'TERRIBLE' AND THAT ONE OF THE DOCS MENTIONED AMPUTATION AND SHE TALKED TO THE PATIENT AND HE BLAKE, OK IF THT IS WHAT IT TAKES TO GET BETTER, ADVISED HER I WOULD RELAY THIS MESSAGE TO DR. TORRE. CONFIRMED MENDY MCCORD RN THAT DR. TORRE IS NOT AWARE OF [facility] CULTURE RESULTS (8735 TODAY) , OK TO CALL CALLED DR. OTRRE AND RELAYED THE CULTURE, THE PATIENT AND SPOUSE ATTITUDE TO AMPUATATION AND DR. TORRE STATES HE WILL PUT IN AN ORDER FOR A GENERAL SURGEON FOR AMPUATATION BECAUSE THE PTS WOUND WILL NEVER HEAL WITH THAT BUG. WILL FOLLOW IN AM RE SURGERY. WILL CONTACT [facility] RE PLAN OF CARE. Addendum: 08/06/19 at 0828 by MARSHA SANDY RN CM Amended: Links added. Addendum: 08/06/19 at 0856 by MARSHA SANDY RN CM THIS NOTE IS FOR 1635 08/05/19
--- NOTE | 2019-08-06 08:37 | NUR ---
CONSULT SPOKE TO DR. KHOURY REGARDING CONSULT FOR EVALUATION OF RIGHT BKA. STATED TO PLACE ON CENSUS. WILL SEE PATIENT TODAY.
[2019-08-06] MEDS: ZOSYN 3.375GM+NS 50ML 50 ML IV SCH ×2 (08:49→21:18)
[2019-08-06] MEDS: LEVOFLOXACIN 250 MG/D5W 50ML 50 ML IVPB SCH (08:54)
[2019-08-06] MEDS: FERROUS SULFATE 325 MG TABLET.DR PO SCH ×2 (08:54→21:18)
[2019-08-06] MEDS: SULFAMETHOX-TMP DS 800/160 TAB PO SCH (08:54)
[2019-08-06] MEDS: PANTOPRAZOLE SODIUM 40 MG TABLET.DR PO SCH ×2 (08:54→21:18)
[2019-08-06] MEDS: FUROSEMIDE 10 MG/ML 4ML VIAL IVP SCH ×2 (08:54→21:18)
[2019-08-06 11:52] VITALS: BP 127/70
--- NOTE | 2019-08-06 14:28 | NUR ---
RD Follow Up Pt reports tolerating current diet at time of visit. PO intake at 100%, no report of GI distress. Pt with ESRD and declines Dialysis as per EMR. Also pending R. BKA surgical evaluation. Pt with multiple wounds (buttock maceration, R. & L. Heel ulcers) and wound infection. RD recommend Wound consult as Pt with ESRD. Protein supplementation contraindicated. Danish BID, Vitamin C, ZnSO4 recommended for wound healing support. Pt LBM 08/04/19. Pt monitored labs: BUN 96, Cr 4.3, GFR 15, Ca 7.3, Alb 1.5, Alk 156, Hgb 7.4, Hct 21.8. RD to continue to monitor. Please notify RD as additional nutrition concerns arise. Thank you. Addendum: 08/06/19 at [address] Amended: Links added.
--- NOTE | 2019-08-06 15:30 | NUR ---
CALLED TO ROOM BY PATIENT SPOUSE COMPLAINED TO RN THAT NO ONE EVER TALKED TO HER ABOUT AMPUTATION. ADVISED SPOSUE THAT I WAS THE ONE WHO TALKED TO HER AT LENGTH YESTERDAY, AT THE NURSING STATION, ABOUT AMPUTATION AND THAT THE PRIMARY NURSE WAS PRIVVY TO THE CONVERSATION. PT SPOUSE STATES NO MD EVERY TALKED TO HER, PT STATES DR. SU TALKED TO THEM, THEN SPOUSE STES THAT SHE WANTS DR. TORRE CALLED TO COME TALKED TO HER. PASSED TO CHARGE NURSE VELAZQUEZ Addendum: 08/06/19 at 1738 by MARSHA SANDY RN CM Amended: Links added.
[2019-08-06 16:00] VITALS: BP 156/73
[2019-08-06 20:00] VITALS: BP 184/87
--- NOTE | 2019-08-06 21:30 | NUR ---
here and did dressing change.He informed pt that no procedure planned at this point in time,test results are still pending.Received call from pt. ' seemed upset on the phone regarding amputation .After explaining to her that no procedure is being scheduled and doctors are all going to explain before any procedure is going to happen and she sounded happy and calm about it..
[2019-08-06] MEDS ORDERED: HYDRALAZINE HCL 20 MG/ML VIAL IV PRN (22:30)
[2019-08-06] MEDS ORDERED: HYDRALAZINE HCL 20 MG/ML VIAL ONE (22:32)
[2019-08-07] VITALS: BP 141/67
[2019-08-07] MEDS: IPRATROPIUM/ALBUTEROL SULFATE 3 ML SOLUTION IH SCH ×5 (00:32→23:29)
[2019-08-07] MEDS: LINEZOLID 600 MG/ISO-OSM 300 ML IV SCH ×2 (01:25→14:11)
[2019-08-07 04:00] VITALS: BP 150/67
[2019-08-07 05:36] LABS: MEAN CORPUSCULAR HGB CONC 33.6 g/dL (32.0-36.0); MEAN CORPUSCULAR VOLUME 83.6 fL (79-99); PLATELET COUNT (AUTO) 270 K/uL (130-400); RED BLOOD CELL COUNT(AUTO) 2.87 MIL/uL (4.50-6.20); RED CELL DISTRIBUTION WIDTH 16.5 % (11.0-15.5); WHITE BLOOD COUNT (AUTO) 17.8 K/uL (4.8-10.8)
[2019-08-07 05:50] LABS: CREATININE 3.8 mg/dL (0.5-1.5); POTASSIUM 3.5 mmol/L (3.5-5.1)
[2019-08-07] MEDS: INSULIN HUMULIN R 100 UNIT/ML 3ML SQ SCH ×4 (06:15→23:42)
[2019-08-07 07:00] VITALS: BP 151/70
--- NOTE | 2019-08-07 08:24 | NUR ---
Bedside report given using SBAr,all questions answered.
[2019-08-07] MEDS: PANTOPRAZOLE SODIUM 40 MG TABLET.DR PO SCH ×2 (10:00→20:19)
[2019-08-07] MEDS: FUROSEMIDE 10 MG/ML 4ML VIAL IVP SCH ×2 (10:00→20:17)
[2019-08-07] MEDS: SULFAMETHOX-TMP DS 800/160 TAB PO SCH (10:00)
[2019-08-07] MEDS: FERROUS SULFATE 325 MG TABLET.DR PO SCH ×2 (10:00→20:19)
[2019-08-07] MEDS: ZOSYN 3.375GM+NS 50ML 50 ML IV SCH ×2 (10:14→20:16)
[2019-08-07] MEDS: INSULIN GLARGINE 100 UNITS/ML 10 ML VIAL SQ SCH ×2 (10:25→23:41)
[2019-08-07 11:00] VITALS: BP 134/68
[2019-08-07 16:00] VITALS: BP 145/65
--- NOTE | 2019-08-07 17:08 | NUR ---
CHART REVIEWED, NOTED ORDER FOR RIGHT BKA.WILL FOLLOW
[2019-08-07] MEDS ORDERED: ENOXAPARIN SODIUM 30 MG/0.3 ML SQ SCH (17:40)
--- NOTE | 2019-08-07 18:12 | NUR ---
CONSENT Patient and both were informed of Dr. Montague's order regarding right socya-azs-ayhg amputation; both stated not being ready to consent for amputation because they are waiting for bone biopsy results as discussed with Dr. Bragg. stated she wants to make sure amputation is the last choice for her . Patient and have already talked to Silvia Gallo this afternoon and he is awsare and has notified Dr. Montague. Order will not be canceled just yet.
[2019-08-07 19:46] VITALS: BP 141/73
[2019-08-08 00:18] VITALS: BP 161/66
[2019-08-08] MEDS: LINEZOLID 600 MG/ISO-OSM 300 ML IV SCH ×2 (01:04→15:10)
[2019-08-08 03:36] VITALS: BP 138/65
[2019-08-08 04:50] LABS: HEMATOCRIT 22.6 % (42-54); MEAN CORPUSCULAR HEMOGLOBIN 28.4 pg (27.0-33.0); MEAN CORPUSCULAR HGB CONC 33.5 g/dL (32.0-36.0); MEAN CORPUSCULAR VOLUME 84.6 fL (79-99); PLATELET COUNT (AUTO) 253 K/uL (130-400); RED BLOOD CELL COUNT(AUTO) 2.68 MIL/uL (4.50-6.20); RED CELL DISTRIBUTION WIDTH 16.9 % (11.0-15.5); WHITE BLOOD COUNT (AUTO) 16.8 K/uL (4.8-10.8)
[2019-08-08 04:58] LABS: CREATININE 3.6 mg/dL (0.5-1.5); MAGNESIUM 1.7 mg/dL (1.80-2.40); PHOSPHORUS 4.7 mg/dL (2.5-4.9); POTASSIUM 3.3 mmol/L (3.5-5.1)
[2019-08-08 05:09] LABS: INR 1.18 (0.85-1.15); PARTIAL THROMBOPLASTIN TIME 31.5 SEC (26.3-35.5); PROTHROMBIN TIME 12.4 SEC (9.6-11.6)
[2019-08-08] MEDS: IPRATROPIUM/ALBUTEROL SULFATE 3 ML SOLUTION IH SCH ×4 (05:16→23:29)
[2019-08-08 07:30] VITALS: BP 139/76
[2019-08-08] MEDS: INSULIN HUMULIN R 100 UNIT/ML 3ML SQ SCH ×3 (07:30→21:00)
--- NOTE | 2019-08-08 08:38 | NUR ---
BIOPSY RESULTS I called Dr. rodgers to his cell phone no answer. I called his office and spoke to Joya. She will convey the message to Jeni, Dr. rodgers's workers compensation claims assistant, that the results of the bone biopsy are back already and in chart. Pending for Dr. Rodgers to give further orders. Also, received call from Silvia Gallo for Dr. Montague; informed him that so far patient has given no consent for surgery and he stated he will call Dr. Montague and plan is to cancel surgery for now pending him talking to Dr. Montague.
[2019-08-08 11:00] VITALS: BP 145/66
[2019-08-08] MEDS: PANTOPRAZOLE SODIUM 40 MG TABLET.DR PO SCH ×2 (11:04→21:52)
[2019-08-08] MEDS: FERROUS SULFATE 325 MG TABLET.DR PO SCH ×2 (11:04→21:53)
[2019-08-08] MEDS: FUROSEMIDE 10 MG/ML 4ML VIAL IVP SCH ×2 (11:04→21:53)
[2019-08-08] MEDS: ZOSYN 3.375GM+NS 50ML 50 ML IV SCH ×2 (11:05→21:52)
[2019-08-08] MEDS: ENOXAPARIN SODIUM 30 MG/0.3 ML SQ SCH (11:07)
[2019-08-08] MEDS: INSULIN GLARGINE 100 UNITS/ML 10 ML VIAL SQ SCH ×2 (11:23→22:06)
[2019-08-08 16:00] VITALS: BP 140/66
--- NOTE | 2019-08-08 17:30 | NUR ---
DR. BRAGG Received call from Dr. Bragg. Read results of right heel bone biopsy to him. Stated he will convey results to patient.
[2019-08-08 19:00] VITALS: BP 149/72
[2019-08-08] MEDS: ONDANSETRON HCL 4 MG/2 ML VIAL IVP PRN (21:52)
[2019-08-09] VITALS: BP 150/76
[2019-08-09] MEDS: LINEZOLID 600 MG/ISO-OSM 300 ML IV SCH ×2 (01:58→13:11)
[2019-08-09 04:00] VITALS: BP 123/64
[2019-08-09 04:57] LABS: HEMATOCRIT 24.3 % (42-54); MEAN CORPUSCULAR HEMOGLOBIN 28.4 pg (27.0-33.0); MEAN CORPUSCULAR HGB CONC 33.6 g/dL (32.0-36.0); MEAN CORPUSCULAR VOLUME 84.4 fL (79-99); PLATELET COUNT (AUTO) 283 K/uL (130-400); RED BLOOD CELL COUNT(AUTO) 2.88 MIL/uL (4.50-6.20); RED CELL DISTRIBUTION WIDTH 17.4 % (11.0-15.5); WHITE BLOOD COUNT (AUTO) 15.1 K/uL (4.8-10.8)
[2019-08-09 05:14] LABS: CREATININE 3.1 mg/dL (0.5-1.5); POTASSIUM 3.2 mmol/L (3.5-5.1)
[2019-08-09] MEDS: IPRATROPIUM/ALBUTEROL SULFATE 3 ML SOLUTION IH SCH ×4 (06:40→23:26)
[2019-08-09] MEDS: INSULIN HUMULIN R 100 UNIT/ML 3ML SQ SCH ×4 (06:42→21:37)
[2019-08-09 07:00] VITALS: BP 136/77
[2019-08-09] MEDS: ZOSYN 3.375GM+NS 50ML 50 ML IV SCH ×2 (09:18→21:34)
[2019-08-09] MEDS: FUROSEMIDE 10 MG/ML 4ML VIAL IVP SCH ×2 (09:23→21:35)
[2019-08-09] MEDS: ENOXAPARIN SODIUM 30 MG/0.3 ML SQ SCH (09:23)
[2019-08-09] MEDS: PANTOPRAZOLE SODIUM 40 MG TABLET.DR PO SCH ×2 (09:24→21:35)
[2019-08-09] MEDS: FERROUS SULFATE 325 MG TABLET.DR PO SCH ×2 (09:25→21:35)
[2019-08-09] MEDS: INSULIN GLARGINE 100 UNITS/ML 10 ML VIAL SQ SCH ×2 (09:30→22:49)
[2019-08-09 11:00] VITALS: BP 137/68
--- NOTE | 2019-08-09 13:30 | NUR ---
CHRISTIANO PLANNING CLARIFICATION ORDER FOR INFECTIOUS DISEAE AND WOUND VAC FROM DR. TORRE. ASKED PRIMARY RN- 'FOR TODAY? BECAUSE PT MAY BE DISCHARGED TODAY. PT CANNOT BE DISCHARGED TO FACILITY WITH WOUND VAC IN PLACE THE FACILITY HAS TO SEE THE WOUND AND APPLY THEIR OWN WOUND VAC. SPOKE TO DR. GUSTAFSON, DECLINED CONSULT -DOCUMENTED AN ORDER. CALL TO [facility] AND ALL INFO SENT. ATTEMPTED TO CALL DR. WEBSTER TO INFORM OF PLAN- WENT TO VOICE MAIL. Addendum: 08/09/19 at 1830 by MARSHA SANDY RN Amended: Links added.
--- NOTE | 2019-08-09 13:30 | NUR ---
PATIENT DISCHARGE PATIENT DISCHARGED, IV DISCONTINUED, BLEEDING CONTROLLED, CATHLON INTACT, PATIENT TOLERATED WITHOUT INCIDENT. Addendum: 08/09/19 at 1356 by JUSTINO MEDINA RN RN NOTE ON WRONG PATIENT.
[2019-08-09] MEDS ORDERED: POTASSIUM CHLORIDE 10% ELIXIR 20 MEQ/15 ML UDCUP PO SCH (13:35)
--- NOTE | 2019-08-09 13:44 | NUR ---
RD NOTIFICATION/ FOLLOW UP DX: OPEN WOUND. CURRENT DIET: RENAL NON-DIALYSIS, 75GMCCD, TREY BID. PO INTAKE 75-100% AND HAS GREAT APPETITE PER PT. LBM: 08/09 AM. LABS: WBC 15, K 3.2, CO2 34, BUN 53, CRE 3.1, GFR 22, RG 223, Mg 1.7, ALB 1.5. MEDS: PIPERACILLIN, PROAMATINE, ZOFRAN, PROCRIT, HUMULIN R, PROTONIX, LANTUS, LASIX, DUONEB, LOVENOX, APRESOLINE, ATARAX, FE SULFATE. SKIN: 2+ PITTING EDEMA, LEFT HEEL ULCER. PT STATED HES EATING WELL AND HAS GREAT APPETITE. RD EXPLAINED IMPORTANCE OF TREY BID TO AID IN WOUND HEALING. PT VERBALIZED UNDERSTANDING AND STATED HE IS WILLING TO TAKE TREY WITH MEALS. RD RECOMMENDS TO CONTINUE CURRENT DIET. CONTINUE TREY BID. RD WILL CONTINUE TO MONITOR AND FOLLOW UP NEEDED. PLEASE NOTIFY RD IF ANY OTHER NUTRITIONAL CONCERNS ARISE. THANK YOU. DIETITIAN TRAINEE CAREY PORTILLO Addendum: 08/09/19 at [address] Amended: Links added.
--- NOTE | 2019-08-09 14:06 | NUR ---
DC DURÁN DC DURÁN AT 1400 HOURS. PATIENT TOLERATED PROCEDURE WITHOUT INCIDENT. EMPTIED 950ML CLEAR YELLOW URINE FROM DURÁN BAG. PATIENT DUE TO VOID BY 2000 HOURS.
[2019-08-09 16:00] VITALS: BP 125/67
--- NOTE | 2019-08-09 18:17 | NUR ---
"PLEASE CALL REPORT IN AM" CALL MADE TO PRIMARY RN TO INFORM HIM THAT [facility] CANNOT TAKE THE PATIENT UNTIL AM. PT WILL HAVE THE WOUND VAC PLACED AT THE FACLITY- THEY HAVE TO SEE THE WOUND ON ADMISSION EMS FORM PENDING- WILL PLACE IN CHART Addendum: 08/09/19 at 1820 by MARSHA SANDY RN Amended: Links added.
[2019-08-09 19:00] VITALS: BP 158/77
[2019-08-10] VITALS: BP 156/70
[2019-08-10] MEDS: LINEZOLID 600 MG/ISO-OSM 300 ML IV SCH (01:22)
[2019-08-10 04:00] VITALS: BP 146/68
[2019-08-10 05:56] LABS: HEMATOCRIT 22.3 % (42-54); MEAN CORPUSCULAR HEMOGLOBIN 28.5 pg (27.0-33.0); MEAN CORPUSCULAR HGB CONC 33.4 g/dL (32.0-36.0); MEAN CORPUSCULAR VOLUME 85.3 fL (79-99); PLATELET COUNT (AUTO) 235 K/uL (130-400); RED BLOOD CELL COUNT(AUTO) 2.62 MIL/uL (4.50-6.20); RED CELL DISTRIBUTION WIDTH 16.8 % (11.0-15.5); WHITE BLOOD COUNT (AUTO) 12.4 K/uL (4.8-10.8)
[2019-08-10 06:01] LABS: BASOPHILS % (MANUAL) 2 % (0-2); EOSINOPHILS % (MANUAL) 4 % (1-6); LYMPHOCYTES % (MANUAL) 14 % (22-44); MONOCYTES % (MANUAL) 4 % (2-9); SEGMENTED NEUTROPHILS % 76 % (40-70)
[2019-08-10 06:02] LABS: MAN.DIFF COMMENT-IMPRESSION MANUAL DIFFERENTIAL
[2019-08-10 06:09] LABS: ALBUMIN 1.6 g/dL (3.5-5.0); BILIRUBIN,TOTAL 0.3 mg/dL (0.2-1.0); CREATININE 2.9 mg/dL (0.5-1.5); POTASSIUM 3.2 mmol/L (3.5-5.1); TOTAL PROTEIN, SERUM 6.5 g/dL (6.0-8.3)
[2019-08-10] MEDS: IPRATROPIUM/ALBUTEROL SULFATE 3 ML SOLUTION IH SCH ×2 (06:33→11:11)
[2019-08-10 07:00] VITALS: BP 124/59
[2019-08-10] MEDS: INSULIN HUMULIN R 100 UNIT/ML 3ML SQ SCH ×2 (07:00→11:30)
[2019-08-10] MEDS: ENOXAPARIN SODIUM 30 MG/0.3 ML SQ SCH (08:50)
[2019-08-10] MEDS: FERROUS SULFATE 325 MG TABLET.DR PO SCH (08:51)
[2019-08-10] MEDS: FUROSEMIDE 10 MG/ML 4ML VIAL IVP SCH (08:51)
[2019-08-10] MEDS: PANTOPRAZOLE SODIUM 40 MG TABLET.DR PO SCH (08:51)
[2019-08-10] MEDS: INSULIN GLARGINE 100 UNITS/ML 10 ML VIAL SQ SCH (09:01)
[2019-08-10] MEDS: EPOETIN ALFA 10,000 UNIT/ML VIAL SQ SCH (09:13)
[2019-08-10] MEDS: ONDANSETRON HCL 4 MG/2 ML VIAL IVP PRN (10:13)
[2019-08-10 11:00] VITALS: BP 125/65
--- NOTE | 2019-08-10 11:40 | NUR ---
REPORT CALLED TO EMILY GARCIA AT [facility]. NURSE UNSURE IF WOUND VAC IS AVAILABLE AT THIS TIME, SHE WILL RETURN CALL ONCE CONFIRMED.
--- NOTE | 2019-08-10 13:50 | NUR ---
PATIENT DISCHARGE RECEIVED CALL FROM JOSE DIAZ AT [facility] REGARDING SHE HAD RECEIVED THE WOUND VAC AND IS READY TO RECEIVE PATIENT. CALLED EMS FOR TRANSPORTATION. PATIENT SIGNED DISCHARGE PAPERWORK.
--- NOTE | 2019-08-10 15:21 | NUR ---
[facility] ARRIVED TO TRANSPORT PATIENT TO THE [facility]. REPORT GIVEN TO EMS.
== END 2019-08-10 15:15 | DRG 853 ==
LOC: EDH 19:44 → EDHIP 07-31 00:41 → 3AH 08-01 15:35
PROVIDERS: ADMIT Internal Medicine; ATTEND Internal Medicine
PROC: 5A09357 Assistance with Respiratory Ventilation, Less than 24 Consecutive Hours, Continuous Positive Airway Pressure (ICD-10-PCS; 2019-07-30)
PROC: 5A09357 Assistance with Respiratory Ventilation, Less than 24 Consecutive Hours, Continuous Positive Airway Pressure (ICD-10-PCS; 2019-07-31)
PROC: 5A09357 Assistance with Respiratory Ventilation, Less than 24 Consecutive Hours, Continuous Positive Airway Pressure (ICD-10-PCS; 2019-08-01)
PROC: 0QBL0ZX Excision of Right Tarsal, Open Approach, Diagnostic (ICD-10-PCS; 2019-08-02)
PROC: 0KBV0ZZ Excision of Right Foot Muscle, Open Approach (ICD-10-PCS; principal; 2019-08-02 21:22)
PROC: 0DJ08ZZ Inspection of Upper Intestinal Tract, Via Natural or Artificial Opening Endoscopic (ICD-10-PCS; 2019-08-04)
PROC: 30233N1 Transfusion of Nonautologous Red Blood Cells into Peripheral Vein, Percutaneous Approach (ICD-10-PCS; 2019-08-08)
DX: A41.9 Sepsis, unspecified organism (principal); J96.01 Acute respiratory failure with hypoxia; J96.02 Acute respiratory failure with hypercapnia; J18.9 Pneumonia, unspecified organism; N18.6 End stage renal disease; A48.0 Gas gangrene; M72.6 Necrotizing fasciitis; G93.41 Metabolic encephalopathy; R65.21 Severe sepsis with septic shock; K29.01 Acute gastritis with bleeding; E11.52 Type 2 diabetes mellitus with diabetic peripheral angiopathy with gangrene; I12.0 Hypertensive chronic kidney disease with stage 5 chronic kidney disease or end stage renal disease; N39.0 Urinary tract infection, site not specified; N17.9 Acute kidney failure, unspecified; L97.419 Non-pressure chronic ulcer of right heel and midfoot with unspecified severity; L97.429 Non-pressure chronic ulcer of left heel and midfoot with unspecified severity; E46 Unspecified protein-calorie malnutrition; E87.2 Acidosis; L03.115 Cellulitis of right lower limb; E87.70 Fluid overload, unspecified; L97.519 Non-pressure chronic ulcer of other part of right foot with unspecified severity; L97.529 Non-pressure chronic ulcer of other part of left foot with unspecified severity; E11.622 Type 2 diabetes mellitus with other skin ulcer; Z68.39 Body mass index [BMI] 39.0-39.9, adult; D64.9 Anemia, unspecified; E11.21 Type 2 diabetes mellitus with diabetic nephropathy; E11.22 Type 2 diabetes mellitus with diabetic chronic kidney disease; E11.42 Type 2 diabetes mellitus with diabetic polyneuropathy; E11.51 Type 2 diabetes mellitus with diabetic peripheral angiopathy without gangrene; E11.621 Type 2 diabetes mellitus with foot ulcer; E66.01 Morbid (severe) obesity due to excess calories; E78.5 Hyperlipidemia, unspecified; I25.10 Atherosclerotic heart disease of native coronary artery without angina pectoris; K21.0 Gastro-esophageal reflux disease with esophagitis; B96.20 Unspecified Escherichia coli [E. coli] as the cause of diseases classified elsewhere; B95.2 Enterococcus as the cause of diseases classified elsewhere; K64.9 Unspecified hemorrhoids; Y95 Nosocomial condition; I25.2 Old myocardial infarction; Z91.19 Patient's noncompliance with other medical treatment and regimen; Z91.15 Patient's noncompliance with renal dialysis; Z89.519 Acquired absence of unspecified leg below knee; Z86.39 Personal history of other endocrine, nutritional and metabolic disease; Z83.3 Family history of diabetes mellitus; Z80.9 Family history of malignant neoplasm, unspecified
CPT/HCPCS: 36415; 36430; 36600; 44360; 71045; 73620; 76770; 80048; 80053; 81001; 82270; 82550; 82728; 82803; 82948; 83540; 83550; 83605; 83735; 83880; 84100; 84484; 85014; 85018; 85025; 85027; 85610; 85651; 85730; 86140; 86850; 86900; 86901; 86922; 87040; 87070; 87071; 87076; 87077; 87088; 87186; 87205; 88304; 88307; 88311; 93005; 93925; 93970; 94640; 94660; 94664; G0378; J0330; J0360; J0885; J1265; J1650; J1815; J1940; J1956; J2020; J2060; J2370; J2405; J2543; J2704; J2765; J2920; J2930; J2997; J3010; J3370; J3410; J3490; J7030; J7070; P9016

== ENCOUNTER 2020-12-29 13:48 | Inpatient (IN) | payer MEDICARE ==
[~2020-12-29] VITALS: Ht 162.6 cm; Wt 113.4 kg
[~2020-12-29 13:48] MED LIST changes: -ASPI-449 PO; +AZIT250T9 PO; +FERS325 PO; +FURO80TA3 PO; +HONE15GE TP; -ISOS30TA6 PO; +LEVAHFA IH; -POTA10TA14 PO; -PREG50 PO; +VIT-7 PO
[2020-12-29] MEDS ORDERED: ZOSYN 3.375GM+NS 50ML 50 ML IV ONE (14:08)
[2020-12-29] MEDS ORDERED: ACETAMINOPHEN 325 MG TAB ONE (14:09)
[2020-12-29 14:18] LABS: ABG BASE EXCESS -3.3 mmol/L (-2.0-3.0); ABG HCO3 21.2 mmol/L (21.0-28.0); ABG OXYGEN SATURATION 87.4 % (95.0-99.0); ABG PCO2 37 mmHg (35-48)
[2020-12-29 14:23] LABS: BASOPHILS % (AUTO) 0.3 % (0.0-5.0); EOSINOPHILS % (AUTO) 0.1 % (0.0-8.0); HEMATOCRIT 40.7 % (42-54); LYMPHOCYTES % (AUTO) 1.2 % (21.0-51.0); MEAN CORPUSCULAR HEMOGLOBIN 28.6 pg (27.0-33.0); MEAN CORPUSCULAR HGB CONC 32.4 g/dL (32.0-36.0); MEAN CORPUSCULAR VOLUME 88.1 fL (79-99); NEUTROPHILS % (AUTO) 94.5 % (40.0-77.0); PLATELET COUNT (AUTO) 140 K/uL (130-400); RED BLOOD CELL COUNT(AUTO) 4.62 MIL/uL (4.50-6.20); RED CELL DISTRIBUTION WIDTH 13.4 % (11.0-15.5)
[2020-12-29 14:37] LABS: WHITE BLOOD COUNT (AUTO) 32.3 K/uL (4.8-10.8)
[2020-12-29 14:38] LABS: CARBON DIOXIDE 25 mmol/L (21-32); CHLORIDE 105 mmol/L (101-111); GLOMERULAR FILTR. RATE CALC 17 mL/min (>60); GLUCOSE,RANDOM 120 mg/dL (70-105); POTASSIUM 5.4 mmol/L (3.5-5.1); SODIUM SERUM 142 mmol/L (136-145); UREA NITROGEN, BLOOD 57 mg/dL (7-18)
[2020-12-29 14:39] LABS: INR 1.08 (0.85-1.15); PROTHROMBIN TIME 11.7 SEC (9.6-11.6)
[2020-12-29 14:41] LABS: PARTIAL THROMBOPLASTIN TIME 28.3 SEC (26.3-35.5)
[2020-12-29 14:48] LABS: ALANINE AMINOTRANSFERASE 35 U/L (12-78); ALBUMIN 3.2 g/dL (3.5-5.0); ASPARTATE AMINOTRANSFERASE 20 U/L (10-37); BILIRUBIN,TOTAL 0.4 mg/dL (0.2-1.0); CREATINE KINASE, TOTAL 88 U/L (21-232); LACTATE DEHYDROGENASE 187 U/L (81-234); MYOGLOBIN 222 ng/mL (10-92); TOTAL PROTEIN, SERUM 8.1 g/dL (6.0-8.3); TROPONIN I < 0.04 ng/mL (0.00-0.06)
[2020-12-29] MEDS ORDERED: AZITHROMYCIN 500MG+NS 250ML 250 ML IV ONE (15:04)
[2020-12-29 15:18] LABS: BAND NEUTROPHILS % (MANUAL) 7 % (0-2); EOSINOPHILS % (MANUAL) 1 % (1-6); LYMPHOCYTES % (MANUAL) 1 % (22-44); MAN.DIFF COMMENT-IMPRESSION MANUAL DIFFERENTIAL; MONOCYTES % (MANUAL) 2 % (2-9); REACTIVE LYMPHOCYTES 1 % (0-0); SEGMENTED NEUTROPHILS % 88 % (40-70)
[2020-12-29 15:19] LABS: PLATELET MORPHOLOGY COMMENT ADEQUATE
[2020-12-29 15:22] LABS: APPEARANCE,URINE Clear (CLEAR); BILIRUBIN,URINE Negative (NEGATIVE); COLOR,URINE Yellow (YELLOW); GLUCOSE, URINE (UA) 250 mg/dL (NEGATIVE); KETONES,URINE Negative (NEGATIVE); LEUKOCYTE ESTERASE ,URINE Negative (NEGATIVE); NITRATE,URINE Negative (NEGATIVE); OCCULT BLOOD,URINE Moderate (NEGATIVE); PH,URINE 6.5 (5.0-8.0); PROTEIN,URINE >=1000 mg/dL (NEGATIVE); UROBILINOGEN,URINE 0.2 mg/dL (0.2-1.0)
[2020-12-29 15:30] LABS: BACTERIA,URINE Few /HPF (None Seen); SQUAMOUS EPITHELIAL CELL,UR None Seen /HPF (0-2)
[2020-12-29 15:33] LABS: B-TYPE NATRIURETIC PEPTIDE 142 pg/mL (0-100)
[2020-12-29] MEDS ORDERED: VANCOMYCIN 1G/250ML KIT 250 ML IV ONE (15:47)
[2020-12-29] MEDS ORDERED: IOHEXOL-350 75 ML VIAL IV ONE ×2 (15:58)
[2020-12-29 16:21] LABS: ERYTHROCYTE SEDIMENTATION RATE 40 MM/HR (0-20)
[2020-12-29] MEDS ORDERED: LACTULOSE 20 GM/30 ML UDCUP PO PRN (19:45)
[2020-12-29] MEDS ORDERED: ONDANSETRON 4MG INJ IV PRN (19:45)
[2020-12-29] MEDS ORDERED: MAG/ALUM/SIMETH 30 ML UDCUP PO PRN (19:45)
[2020-12-29] MEDS ORDERED: DIPHENHYDRAMINE HCL 25 MG CAPSULE PO PRN (19:45)
[2020-12-29] MEDS ORDERED: DiphenhydrAMINE HCL 50 MG/ML VIAL IV PRN (19:45)
[2020-12-29] MEDS ORDERED: NITROGLYCERIN 0.4 MG SL TAB SL PRN (19:45)
[2020-12-29] MEDS ORDERED: GUAIFENESIN-DM 200/20 MG 10 ML PO PRN (19:45)
[2020-12-29] MEDS ORDERED: VANCOMYCIN PROTOCOL PER PHARMACY IV PRN (19:45)
[2020-12-29] MEDS ORDERED: ACETAMINOPHEN 325 MG TAB PO PRN (19:45)
[2020-12-29] MEDS ORDERED: VANCOMYCIN 1G 1.75 GM in 0.9% NACL 250ML 250 ML IV ONE (20:30)
[2020-12-29] MEDS: HEPARIN 5,000 UNIT VIAL SQ SCH (21:00)
[2020-12-29] MEDS: FAMOTIDINE 20MG TAB PO SCH (21:00)
[2020-12-29] MEDS ORDERED: HEPARIN 5,000 UNIT VIAL ONE (21:56)
[2020-12-29] MEDS ORDERED: FAMOTIDINE 20MG TAB ONE (21:56)
[2020-12-30] VITALS (7 sets, daily range): BP systolic 107–155; BP diastolic 52–71
[2020-12-30] MEDS: ZOSYN 3.375GM+NS 50ML 50 ML IV SCH ×3 (00:51→22:04)
[2020-12-30] MEDS: ACETAMINOPHEN 325 MG TAB PO PRN (00:52)
[2020-12-30 05:17] LABS: BASOPHILS % (AUTO) 0.5 % (0.0-5.0); EOSINOPHILS % (AUTO) 0.1 % (0.0-8.0); LYMPHOCYTES % (AUTO) 5.6 % (21.0-51.0); MEAN CORPUSCULAR HGB CONC 31.9 g/dL (32.0-36.0); MEAN CORPUSCULAR VOLUME 90.7 fL (79-99); MONOCYTES % (AUTO) 4.1 % (3.0-13.0); NEUTROPHILS % (AUTO) 89.2 % (40.0-77.0); PLATELET COUNT (AUTO) 131 K/uL (130-400); RED BLOOD CELL COUNT(AUTO) 3.97 MIL/uL (4.50-6.20); RED CELL DISTRIBUTION WIDTH 13.5 % (11.0-15.5); WHITE BLOOD COUNT (AUTO) 27.8 K/uL (4.8-10.8)
[2020-12-30 05:32] LABS: ALBUMIN 2.7 g/dL (3.5-5.0); BILIRUBIN,TOTAL 0.5 mg/dL (0.2-1.0); CREATININE 4.4 mg/dL (0.5-1.5); CRP QUANTITATIVE 168.5 mg/L (0.00-9.0); MAGNESIUM 2.1 mg/dL (1.80-2.40); PHOSPHORUS 4.9 mg/dL (2.5-4.9); POTASSIUM 5.3 mmol/L (3.5-5.1); TOTAL PROTEIN, SERUM 7.1 g/dL (6.0-8.3)
[2020-12-30] MEDS: HEPARIN 5,000 UNIT VIAL SQ SCH ×2 (09:34→22:07)
[2020-12-30] MEDS: ASCORBIC ACID 500 MG TAB PO SCH (09:37)
[2020-12-30] MEDS: TRAMADOL HCL 50 MG TABLET PO SCH ×2 (09:38→22:04)
[2020-12-30] MEDS: ZINC SULFATE 220 CAPSULE PO SCH (09:39)
[2020-12-30] MEDS ORDERED: ALBUMIN FOR BP SUPPORT MISC PRN (13:45)
[2020-12-30] MEDS ORDERED: NITROGLYCERIN 0.4 MG SL TAB SL PRN (13:45)
[2020-12-30] MEDS ORDERED: 0.9%NACL 1000ML IV PRN (13:45)
[2020-12-30] MEDS ORDERED: LIDOCAINE HCL-MPF 1% 2ML VIAL IJ PRN (13:45)
[2020-12-30] MEDS ORDERED: ACETAMINOPHEN 325 MG TAB PO PRN (13:45)
[2020-12-30] MEDS ORDERED: HEPARIN 5,000 UNIT VIAL IJ PRN ×2 (13:45)
[2020-12-30] MEDS ORDERED: 0.9%NACL 1000ML 1,000 ML IV PRN (13:45)
[2020-12-30] MEDS: Vitamin B Complex/Vit C/Folic Acid PO SCH (16:06)
[2020-12-30] MEDS: FAMOTIDINE 20MG TAB PO SCH (22:04)
[2020-12-31 04:09] VITALS: BP 116/44
[2020-12-31 05:59] LABS: HEMATOCRIT 37.1 % (42-54); MEAN CORPUSCULAR HEMOGLOBIN 28.2 pg (27.0-33.0); MEAN CORPUSCULAR HGB CONC 32.3 g/dL (32.0-36.0); MEAN CORPUSCULAR VOLUME 87.3 fL (79-99); PLATELET COUNT (AUTO) 110 K/uL (130-400); RED BLOOD CELL COUNT(AUTO) 4.25 MIL/uL (4.50-6.20); RED CELL DISTRIBUTION WIDTH 13.5 % (11.0-15.5); WHITE BLOOD COUNT (AUTO) 13.1 K/uL (4.8-10.8)
[2020-12-31 06:21] LABS: ALBUMIN 2.6 g/dL (3.5-5.0); BILIRUBIN,TOTAL 0.4 mg/dL (0.2-1.0); CREATININE 4.5 mg/dL (0.5-1.5); CRP QUANTITATIVE 145.6 mg/L (0.00-9.0); PHOSPHORUS 4.9 mg/dL (2.5-4.9); POTASSIUM 4.6 mmol/L (3.5-5.1); TOTAL PROTEIN, SERUM 7.2 g/dL (6.0-8.3)
[2020-12-31 07:07] LABS: EOSINOPHILS % (MANUAL) 5 % (1-6); LYMPHOCYTES % (MANUAL) 13 % (22-44); MAN.DIFF COMMENT-IMPRESSION MANUAL DIFFERENTIAL; MONOCYTES % (MANUAL) 5 % (2-9); SEGMENTED NEUTROPHILS % 77 % (40-70)
[2020-12-31 07:10] LABS: PLATELET MORPHOLOGY COMMENT DECREASED
[2020-12-31 08:00] VITALS: BP 122/62
[2020-12-31] MEDS: ASCORBIC ACID 500 MG TAB PO SCH (08:45)
[2020-12-31] MEDS: Vitamin B Complex/Vit C/Folic Acid PO SCH (08:45)
[2020-12-31] MEDS: ZINC SULFATE 220 CAPSULE PO SCH (08:45)
[2020-12-31] MEDS: HEPARIN 5,000 UNIT VIAL SQ SCH ×2 (08:47→20:11)
[2020-12-31] MEDS: TRAMADOL HCL 50 MG TABLET PO SCH ×2 (09:14→10:14)
[2020-12-31] MEDS: ZOSYN 3.375GM+NS 50ML 50 ML IV SCH ×2 (09:14→22:07)
[2020-12-31 11:52] VITALS: BP 150/60
[2020-12-31] MEDS ORDERED: VANCOMYCIN 1G/250ML KIT 250 ML IV ONE (14:00)
[2020-12-31] MEDS: VANCOMYCIN 1G/250ML KIT 250 ML IV NR (15:00)
[2020-12-31 16:19] VITALS: BP 123/67
[2020-12-31 20:00] VITALS: BP 110/49
[2020-12-31] MEDS: FAMOTIDINE 20MG TAB PO SCH (20:07)
[2020-12-31 23:48] VITALS: BP 152/82
[2021-01-01 04:00] VITALS: BP 145/70
[2021-01-01 05:11] LABS: BASOPHILS % (AUTO) 0.9 % (0.0-5.0); EOSINOPHILS % (AUTO) 3.4 % (0.0-8.0); HEMATOCRIT 37.2 % (42-54); LYMPHOCYTES % (AUTO) 21.5 % (21.0-51.0); MEAN CORPUSCULAR HEMOGLOBIN 28.4 pg (27.0-33.0); MEAN CORPUSCULAR HGB CONC 32.8 g/dL (32.0-36.0); MEAN CORPUSCULAR VOLUME 86.5 fL (79-99); MONOCYTES % (AUTO) 10.1 % (3.0-13.0); NEUTROPHILS % (AUTO) 63.5 % (40.0-77.0); PLATELET COUNT (AUTO) 111 K/uL (130-400); RED CELL DISTRIBUTION WIDTH 13.2 % (11.0-15.5); WHITE BLOOD COUNT (AUTO) 10.8 K/uL (4.8-10.8)
[2021-01-01 05:42] LABS: ALBUMIN 2.7 g/dL (3.5-5.0); BILIRUBIN,TOTAL 0.5 mg/dL (0.2-1.0); CREATININE 3.9 mg/dL (0.5-1.5); CRP QUANTITATIVE 86.3 mg/L (0.00-9.0); PHOSPHORUS 4.5 mg/dL (2.5-4.9); POTASSIUM 4.1 mmol/L (3.5-5.1); TOTAL PROTEIN, SERUM 7.7 g/dL (6.0-8.3)
[2021-01-01 07:16] LABS: HEPATITIS Bs ANTIGEN SCREEN P Negative (Negative)
[2021-01-01 08:57] VITALS: BP 158/76
[2021-01-01] MEDS: ASCORBIC ACID 500 MG TAB PO SCH (10:18)
[2021-01-01] MEDS: ZINC SULFATE 220 CAPSULE PO SCH (10:18)
[2021-01-01] MEDS: Vitamin B Complex/Vit C/Folic Acid PO SCH (10:18)
[2021-01-01] MEDS: ZOSYN 3.375GM+NS 50ML 50 ML IV SCH ×2 (10:18→21:14)
[2021-01-01] MEDS: TRAMADOL HCL 50 MG TABLET PO SCH ×2 (10:18→21:15)
[2021-01-01] MEDS: HEPARIN 5,000 UNIT VIAL SQ SCH ×2 (10:20→21:13)
[2021-01-01 13:37] VITALS: BP 152/58
[2021-01-01] MEDS: VANCOMYCIN 1G/250ML KIT 250 ML IV NR (15:04)
[2021-01-01 16:36] VITALS: BP 150/72
[2021-01-01 19:37] LABS: BASOPHILS % (AUTO) 1.1 % (0.0-5.0); EOSINOPHILS % (AUTO) 4.1 % (0.0-8.0); HEMATOCRIT 38.6 % (42-54); LYMPHOCYTES % (AUTO) 21.3 % (21.0-51.0); MEAN CORPUSCULAR HEMOGLOBIN 28.8 pg (27.0-33.0); MEAN CORPUSCULAR HGB CONC 32.6 g/dL (32.0-36.0); MEAN CORPUSCULAR VOLUME 88.1 fL (79-99); MONOCYTES % (AUTO) 9.7 % (3.0-13.0); NEUTROPHILS % (AUTO) 63.3 % (40.0-77.0); PLATELET COUNT (AUTO) 137 K/uL (130-400); RED BLOOD CELL COUNT(AUTO) 4.38 MIL/uL (4.50-6.20); RED CELL DISTRIBUTION WIDTH 13.3 % (11.0-15.5); WHITE BLOOD COUNT (AUTO) 10.5 K/uL (4.8-10.8)
[2021-01-01 19:43] VITALS: BP 152/76
[2021-01-01] MEDS: FAMOTIDINE 20MG TAB PO SCH (21:08)
[2021-01-02] VITALS (7 sets, daily range): BP systolic 95–154; BP diastolic 50–86
[2021-01-02 04:44] LABS: EOSINOPHILS % (AUTO) 4.6 % (0.0-8.0); LYMPHOCYTES % (AUTO) 25.2 % (21.0-51.0); MEAN CORPUSCULAR HEMOGLOBIN 28.3 pg (27.0-33.0); MEAN CORPUSCULAR HGB CONC 32.9 g/dL (32.0-36.0); MONOCYTES % (AUTO) 9.9 % (3.0-13.0); NEUTROPHILS % (AUTO) 58.5 % (40.0-77.0); PLATELET COUNT (AUTO) 135 K/uL (130-400); RED BLOOD CELL COUNT(AUTO) 4.42 MIL/uL (4.50-6.20); RED CELL DISTRIBUTION WIDTH 13.1 % (11.0-15.5); WHITE BLOOD COUNT (AUTO) 8.8 K/uL (4.8-10.8)
[2021-01-02] MEDS: ACETAMINOPHEN 325 MG TAB PO PRN (04:55)
[2021-01-02 05:00] LABS: CREATININE 5.2 mg/dL (0.5-1.5); POTASSIUM 4.3 mmol/L (3.5-5.1)
[2021-01-02] MEDS: ASCORBIC ACID 500 MG TAB PO SCH (12:22)
[2021-01-02] MEDS: ZOSYN 3.375GM+NS 50ML 50 ML IV SCH ×2 (12:22→20:35)
[2021-01-02] MEDS: ZINC SULFATE 220 CAPSULE PO SCH (12:22)
[2021-01-02] MEDS: Vitamin B Complex/Vit C/Folic Acid PO SCH (12:22)
[2021-01-02] MEDS: TRAMADOL HCL 50 MG TABLET PO SCH ×2 (12:23→20:35)
[2021-01-02] MEDS: HEPARIN 5,000 UNIT VIAL SQ SCH ×2 (12:37→20:36)
[2021-01-02] MEDS: VANCOMYCIN 1G/250ML KIT 250 ML IV NR (16:34)
[2021-01-02 18:23] LABS: INR 1.07 (0.85-1.15); PROTHROMBIN TIME 11.6 SEC (9.6-11.6)
[2021-01-02 18:24] LABS: PARTIAL THROMBOPLASTIN TIME 28.9 SEC (26.3-35.5)
[2021-01-02] MEDS: FAMOTIDINE 20MG TAB PO SCH (20:35)
[2021-01-02] MEDS ORDERED: OMEP20CA12 PO (23:04)
[2021-01-02] MEDS ORDERED: VITAD50000 PO (23:04)
[2021-01-02] MEDS ORDERED: FOLI1TAB85 PO (23:04)
[2021-01-03 04:22] VITALS: BP 135/67
[2021-01-03 05:49] LABS: EOSINOPHILS % (AUTO) 3.9 % (0.0-8.0); HEMATOCRIT 38.4 % (42-54); LYMPHOCYTES % (AUTO) 19.9 % (21.0-51.0); MEAN CORPUSCULAR HEMOGLOBIN 28.2 pg (27.0-33.0); MEAN CORPUSCULAR HGB CONC 32.6 g/dL (32.0-36.0); MEAN CORPUSCULAR VOLUME 86.7 fL (79-99); MONOCYTES % (AUTO) 6.9 % (3.0-13.0); NEUTROPHILS % (AUTO) 67.6 % (40.0-77.0); PLATELET COUNT (AUTO) 131 K/uL (130-400); RED BLOOD CELL COUNT(AUTO) 4.43 MIL/uL (4.50-6.20); WHITE BLOOD COUNT (AUTO) 10.9 K/uL (4.8-10.8)
[2021-01-03 06:26] LABS: CREATININE 4.7 mg/dL (0.5-1.5); POTASSIUM 4.2 mmol/L (3.5-5.1)
[2021-01-03 07:51] VITALS: BP 164/47
[2021-01-03] MEDS: ZINC SULFATE 220 CAPSULE PO SCH (09:08)
[2021-01-03] MEDS: ASCORBIC ACID 500 MG TAB PO SCH (09:08)
[2021-01-03] MEDS: Vitamin B Complex/Vit C/Folic Acid PO SCH (09:08)
[2021-01-03] MEDS: TRAMADOL HCL 50 MG TABLET PO SCH ×2 (09:08→22:27)
[2021-01-03] MEDS: HEPARIN 5,000 UNIT VIAL SQ SCH ×2 (09:09→23:11)
[2021-01-03] MEDS: ZOSYN 3.375GM+NS 50ML 50 ML IV SCH ×2 (10:00→22:27)
[2021-01-03 12:08] VITALS: BP 143/72
[2021-01-03 16:00] VITALS: BP 130/60
[2021-01-03 19:54] VITALS: BP 160/75
[2021-01-03] MEDS: FAMOTIDINE 20MG TAB PO SCH (22:26)
[2021-01-03 23:24] VITALS: BP 156/81
[2021-01-04 03:57] VITALS: BP 144/64
[2021-01-04 08:27] VITALS: BP 172/103
[2021-01-04] MEDS: ZOSYN 3.375GM+NS 50ML 50 ML IV SCH (10:28)
[2021-01-04] MEDS: Vitamin B Complex/Vit C/Folic Acid PO SCH (10:28)
[2021-01-04] MEDS: ZINC SULFATE 220 CAPSULE PO SCH (10:29)
[2021-01-04] MEDS: ASCORBIC ACID 500 MG TAB PO SCH (10:29)
[2021-01-04] MEDS: HEPARIN 5,000 UNIT VIAL SQ SCH (10:30)
[2021-01-04 12:06] VITALS: BP 135/73
[2021-01-04] MEDS ORDERED: VANCOMYCIN 1G/250ML KIT 250 ML IV NR (15:00)
[2021-01-04 17:18] VITALS: BP 142/81
[2021-01-04 20:08] VITALS: BP 166/49
[2021-06-12] MEDS ORDERED: HYDR-4060 PO (12:07)
== END 2021-01-04 21:30 | DRG 871 ==
LOC: EDH 13:48 → EDHIP 19:41 → 4BH 23:34 → EDHIP 12-30 15:49 → 4BH 12-30 15:49 → 3BH 12-31 13:04
PROVIDERS: ADMIT Family Medicine; ATTEND Family Medicine
PROC: 5A1D70Z Performance of Urinary Filtration, Intermittent, Less than 6 Hours Per Day (ICD-10-PCS; 2020-12-30)
PROC: 5A1D70Z Performance of Urinary Filtration, Intermittent, Less than 6 Hours Per Day (ICD-10-PCS; 2020-12-31)
PROC: 5A1D70Z Performance of Urinary Filtration, Intermittent, Less than 6 Hours Per Day (ICD-10-PCS; 2021-01-02)
PROC: 05HY33Z Insertion of Infusion Device into Upper Vein, Percutaneous Approach (ICD-10-PCS; principal; 2021-01-03)
DX: A41.9 Sepsis, unspecified organism (principal); N18.6 End stage renal disease; J18.9 Pneumonia, unspecified organism; I12.0 Hypertensive chronic kidney disease with stage 5 chronic kidney disease or end stage renal disease; Z68.41 Body mass index [BMI] 40.0-44.9, adult; L03.115 Cellulitis of right lower limb; L03.116 Cellulitis of left lower limb; L97.419 Non-pressure chronic ulcer of right heel and midfoot with unspecified severity; M86.8X7 Other osteomyelitis, ankle and foot; E11.22 Type 2 diabetes mellitus with diabetic chronic kidney disease; B96.89 Other specified bacterial agents as the cause of diseases classified elsewhere; D64.9 Anemia, unspecified; E11.42 Type 2 diabetes mellitus with diabetic polyneuropathy; E11.51 Type 2 diabetes mellitus with diabetic peripheral angiopathy without gangrene; E11.621 Type 2 diabetes mellitus with foot ulcer; E11.69 Type 2 diabetes mellitus with other specified complication; E66.01 Morbid (severe) obesity due to excess calories; E87.5 Hyperkalemia; G89.29 Other chronic pain; I25.10 Atherosclerotic heart disease of native coronary artery without angina pectoris; I89.0 Lymphedema, not elsewhere classified; L97.529 Non-pressure chronic ulcer of other part of left foot with unspecified severity; M48.061 Spinal stenosis, lumbar region without neurogenic claudication; Z20.822 Contact with and (suspected) exposure to COVID-19; Z99.2 Dependence on renal dialysis; Z80.0 Family history of malignant neoplasm of digestive organs; Z83.3 Family history of diabetes mellitus; Z86.19 Personal history of other infectious and parasitic diseases
CPT/HCPCS: 36415; 36600; 71045; 71275; 72146; 72148; 74177; 80048; 80053; 80202; 81001; 82550; 82728; 82803; 82948; 83605; 83615; 83690; 83735; 83874; 83880; 84100; 84145; 84484; 85025; 85378; 85610; 85651; 85730; 86140; 86900; 86901; 87040; 87088; 87340; 87426; 87804; 90935; 93005; 93970; C1894; G0378; J0456; J1644; J2543; J3370; J7050; Q9967; U0003

== ENCOUNTER 2021-08-02 09:24 | Inpatient (IN) | payer MEDICARE ==
[~2021-08-02] VITALS: Ht 172.7 cm; Wt 105.0 kg
[2021-08-02] VITALS (7 sets, daily range): BP systolic 115–145; BP diastolic 42–74
[~2021-08-02 09:24] MED LIST changes: -AZIT250T9 PO; +FOLI1TAB85 PO; -HONE15GE TP; +OMEP20CA12 PO; -VIT-7 PO; +VITAD50000 PO
[2021-08-02 09:50] LABS: ABG BASE EXCESS 0.5 mmol/L (-2.0-3.0); ABG HCO3 24.8 mmol/L (21.0-28.0); ABG OXYGEN SATURATION 81.3 % (95.0-99.0); ABG PCO2 39 mmHg (35-48)
[2021-08-02 10:49] LABS: BASOPHILS % (AUTO) 0.3 % (0.0-5.0); HEMATOCRIT 35.3 % (42-54); MEAN CORPUSCULAR HGB CONC 31.7 g/dL (32.0-36.0); MEAN CORPUSCULAR VOLUME 91.5 fL (79-99); MONOCYTES % (AUTO) 6.2 % (3.0-13.0); NEUTROPHILS % (AUTO) 67.8 % (40.0-77.0); PLATELET COUNT (AUTO) 88 K/uL (130-400); RED BLOOD CELL COUNT(AUTO) 3.86 MIL/uL (4.50-6.20); RED CELL DISTRIBUTION WIDTH 14.1 % (11.0-15.5)
[2021-08-02 10:56] LABS: CREATININE 5.9 mg/dL (0.5-1.5); POTASSIUM 4.2 mmol/L (3.5-5.1)
[2021-08-02 11:01] LABS: ALBUMIN 2.6 g/dL (3.5-5.0); BILIRUBIN,DIRECT 0.2 mg/dL (0.0-0.3); BILIRUBIN,TOTAL 0.4 mg/dL (0.2-1.0); CRP QUANTITATIVE 105.5 mg/L (0.00-9.0); TOTAL PROTEIN, SERUM 7.9 g/dL (6.0-8.3)
[2021-08-02] MEDS: INSULIN HUMULIN R 100 UNIT/ML 3ML SQ SCH ×5 (11:30→21:13)
[2021-08-02] MEDS: CEFTRIAXONE 1G VIAL IV SCH (11:37)
[2021-08-02] MEDS: DOXYCYCLINE 100MG+NS 250ML 250 ML IV SCH ×2 (11:37→21:32)
[2021-08-02] MEDS: FAMOTIDINE 20MG VIAL IV SCH (11:37)
[2021-08-02 11:50] LABS: ERYTHROCYTE SEDIMENTATION RATE 71 MM/HR (0-20)
[2021-08-02] MEDS ORDERED: ALBUTEROL 0.083% 2.5 MG/3 ML INH IH SCH (12:00)
[2021-08-02] MEDS ORDERED: [UNRECOGNIZED DRUG - REMARK] MISC SCH (13:30)
[2021-08-02] MEDS ORDERED: [UNRECOGNIZED DRUG - REMARK] MISC SCH (13:30)
[2021-08-02] MEDS: DEXAMETHASONE SOD PHOSPHATE 4 MG/ML 1ML VIAL IVP SCH (14:24)
[2021-08-02] MEDS: HEPARIN 5,000 UNIT VIAL SQ SCH ×2 (14:25→21:31)
[2021-08-02] MEDS ORDERED: PHARMACY COMMUNICATION MISC SCH (14:30)
[2021-08-02] MEDS: ALBUTEROL INHALER 90MCG/INH IH SCH ×2 (21:00→21:52)
[2021-08-02] MEDS: INSULIN GLARGINE 100 UNITS/ML 10 ML VIAL SQ SCH (21:14)
[2021-08-02] MEDS ORDERED: ATROPINE 1MG SYG IVP ONE (23:18)
[2021-08-02] MEDS ORDERED: EPINEPHRINE 1MG SYG 10ML IVP ONE (23:18)
[2021-08-02] MEDS ORDERED: SODIUM BICARB 8.4% 50ML SYRINGE IVP ONE (23:18)
[2021-08-02] MEDS ORDERED: DEXTROSE 50%-WATER 50 ML DISP.SYRIN IV ONE (23:18)
[2021-08-02] MEDS ORDERED: CACL 1GM SYG IVP ONE (23:18)
[2021-08-03] VITALS (27 sets, daily range): BP systolic 77–150; BP diastolic 30–79
[2021-08-03] MEDS: HEPARIN 5,000 UNIT VIAL SQ SCH ×3 (05:27→23:30)
[2021-08-03 07:39] LABS: HEMATOCRIT 39.4 % (42-54); LYMPHOCYTES % (AUTO) 28.4 % (21.0-51.0); MEAN CORPUSCULAR HEMOGLOBIN 29.3 pg (27.0-33.0); MEAN CORPUSCULAR HGB CONC 31.5 g/dL (32.0-36.0); MEAN CORPUSCULAR VOLUME 93.1 fL (79-99); MONOCYTES % (AUTO) 10.6 % (3.0-13.0); NEUTROPHILS % (AUTO) 60.3 % (40.0-77.0); PLATELET COUNT (AUTO) 82 K/uL (130-400); RED BLOOD CELL COUNT(AUTO) 4.23 MIL/uL (4.50-6.20); RED CELL DISTRIBUTION WIDTH 13.9 % (11.0-15.5); WHITE BLOOD COUNT (AUTO) 2.8 K/uL (4.8-10.8)
[2021-08-03 08:00] LABS: CRP QUANTITATIVE 111.2 mg/L (0.00-9.0); MAGNESIUM 2.2 mg/dL (1.80-2.40)
[2021-08-03] MEDS ORDERED: ENOXAPARIN SODIUM 40 MG/0.4 ML SYRINGE SQ SCH (09:00)
[2021-08-03 09:47] LABS: LYMPHOCYTES % (MANUAL) 25 % (22-44); MAN.DIFF COMMENT-IMPRESSION MANUAL DIFFERENTIAL; MONOCYTES % (MANUAL) 8 % (2-9); PLATELET MORPHOLOGY COMMENT DECREASED; SEGMENTED NEUTROPHILS % 67 % (40-70)
[2021-08-03] MEDS: INSULIN HUMULIN R 100 UNIT/ML 3ML SQ SCH ×7 (10:01→21:23)
[2021-08-03] MEDS: FAMOTIDINE 20MG VIAL IV SCH (10:02)
[2021-08-03] MEDS: DEXAMETHASONE SOD PHOSPHATE 4 MG/ML 1ML VIAL IVP SCH ×3 (10:02→21:23)
[2021-08-03] MEDS ORDERED: 0.9%NACL 1000ML 1,000 ML IV PRN (11:00)
[2021-08-03] MEDS ORDERED: HEPARIN 5,000 UNIT VIAL IRRIG PRN (11:00)
[2021-08-03] MEDS: ALBUTEROL INHALER 90MCG/INH IH SCH ×2 (12:00→17:47)
[2021-08-03] MEDS: CEFTRIAXONE 1G VIAL IV SCH (13:55)
[2021-08-03] MEDS: DOXYCYCLINE 100MG+NS 250ML 250 ML IV SCH ×2 (13:56→23:23)
[2021-08-03] MEDS: INSULIN GLARGINE 100 UNITS/ML 10 ML VIAL SQ SCH (21:23)
[2021-08-04 03:02] VITALS: BP 93/52
[2021-08-04] MEDS: HEPARIN 5,000 UNIT VIAL SQ SCH ×3 (06:22→21:40)
[2021-08-04] MEDS: ALBUTEROL INHALER 90MCG/INH IH SCH ×4 (06:23→18:02)
[2021-08-04 07:06] LABS: BASOPHILS % (AUTO) 0.2 % (0.0-5.0); HEMATOCRIT 35.4 % (42-54); LYMPHOCYTES % (AUTO) 6.5 % (21.0-51.0); MEAN CORPUSCULAR HEMOGLOBIN 29.1 pg (27.0-33.0); MEAN CORPUSCULAR HGB CONC 32.8 g/dL (32.0-36.0); MEAN CORPUSCULAR VOLUME 88.9 fL (79-99); MONOCYTES % (AUTO) 6.3 % (3.0-13.0); NEUTROPHILS % (AUTO) 86.4 % (40.0-77.0); PLATELET COUNT (AUTO) 102 K/uL (130-400); RED BLOOD CELL COUNT(AUTO) 3.98 MIL/uL (4.50-6.20); RED CELL DISTRIBUTION WIDTH 13.5 % (11.0-15.5); WHITE BLOOD COUNT (AUTO) 6.5 K/uL (4.8-10.8)
[2021-08-04 07:19] LABS: ALBUMIN 2.6 g/dL (3.5-5.0); BILIRUBIN,TOTAL 0.3 mg/dL (0.2-1.0); CREATININE 4.9 mg/dL (0.5-1.5); POTASSIUM 3.9 mmol/L (3.5-5.1)
[2021-08-04 07:20] LABS: HEMOGLOBIN A1C 5.8 % (4.0-6.0)
[2021-08-04 08:00] VITALS: BP 98/42
[2021-08-04 08:15] LABS: HEPATITIS Bs ANTIGEN SCREEN P Negative (Negative)
[2021-08-04] MEDS: FAMOTIDINE 20MG VIAL IV SCH (08:24)
[2021-08-04] MEDS: DEXAMETHASONE SOD PHOSPHATE 4 MG/ML 1ML VIAL IVP SCH ×2 (08:24→21:38)
[2021-08-04] MEDS: INSULIN HUMULIN R 100 UNIT/ML 3ML SQ SCH ×7 (08:25→21:38)
[2021-08-04] MEDS: CEFTRIAXONE 1G VIAL IV SCH (11:23)
[2021-08-04] MEDS: DOXYCYCLINE 100MG+NS 250ML 250 ML IV SCH ×2 (11:23→23:44)
[2021-08-04 13:53] VITALS: BP 92/50
[2021-08-04 18:27] VITALS: BP 116/52
[2021-08-04] MEDS: INSULIN GLARGINE 100 UNITS/ML 10 ML VIAL SQ SCH (21:39)
[2021-08-04] MEDS ORDERED: ACETAMINOPHEN 325 MG TAB ONE (22:30)
[2021-08-04] MEDS: ACETAMINOPHEN 325 MG TAB PO PRN (22:30)
[2021-08-04] MEDS ORDERED: GUAIFENESIN-DM 200/20 MG 10 ML PO PRN (23:00)
[2021-08-04 23:19] VITALS: BP 90/44
[2021-08-05] VITALS (27 sets, daily range): BP systolic 60–182; BP diastolic 29–88
[2021-08-05] MEDS: ACETAMINOPHEN 325 MG TAB PO PRN (00:02)
[2021-08-05] MEDS: ALBUTEROL INHALER 90MCG/INH IH SCH ×4 (01:07→21:52)
[2021-08-05 05:09] LABS: BASOPHILS % (AUTO) 0.1 % (0.0-5.0); HEMATOCRIT 38.8 % (42-54); LYMPHOCYTES % (AUTO) 2.4 % (21.0-51.0); MEAN CORPUSCULAR HEMOGLOBIN 29.2 pg (27.0-33.0); MEAN CORPUSCULAR HGB CONC 32.5 g/dL (32.0-36.0); MONOCYTES % (AUTO) 5.6 % (3.0-13.0); NEUTROPHILS % (AUTO) 91.1 % (40.0-77.0); PLATELET COUNT (AUTO) 139 K/uL (130-400); RED BLOOD CELL COUNT(AUTO) 4.31 MIL/uL (4.50-6.20); RED CELL DISTRIBUTION WIDTH 13.6 % (11.0-15.5); WHITE BLOOD COUNT (AUTO) 12.9 K/uL (4.8-10.8)
[2021-08-05] MEDS: HEPARIN 5,000 UNIT VIAL SQ SCH ×3 (05:45→21:05)
[2021-08-05 05:55] LABS: CRP QUANTITATIVE 60.7 mg/L (0.00-9.0)
[2021-08-05 06:23] LABS: ALBUMIN 2.8 g/dL (3.5-5.0); BILIRUBIN,TOTAL 0.4 mg/dL (0.2-1.0); CREATININE 5.6 mg/dL (0.5-1.5); POTASSIUM 3.6 mmol/L (3.5-5.1); TOTAL PROTEIN, SERUM 8.6 g/dL (6.0-8.3)
[2021-08-05] MEDS: INSULIN HUMULIN R 100 UNIT/ML 3ML SQ SCH ×6 (06:49→20:52)
[2021-08-05] MEDS: FAMOTIDINE 20MG VIAL IV SCH (10:48)
[2021-08-05] MEDS: DOXYCYCLINE 100MG+NS 250ML 250 ML IV SCH ×2 (10:48→21:53)
[2021-08-05] MEDS: DEXAMETHASONE SOD PHOSPHATE 4 MG/ML 1ML VIAL IVP SCH (10:52)
[2021-08-05] MEDS: CEFTRIAXONE 1G VIAL IV SCH (11:00)
[2021-08-05] MEDS ORDERED: BUSPIRONE HCL 5 MG TABLET PO ONE (14:11)
[2021-08-05] MEDS ORDERED: RENAL DOSE IV PRN (14:30)
[2021-08-05] MEDS: SOLU-MEDROL 40MG VIAL IVP SCH ×2 (15:00→21:53)
[2021-08-05] MEDS ORDERED: BUSPIRONE HCL 5 MG TABLET PO SCH (15:30)
[2021-08-05] MEDS: DEXMEDETOMIDINE 400MCG/NS100ML IV PRN (15:31)
[2021-08-05] MEDS ORDERED: PROPOFOL 1000 MG/100 ML 100 ML IV ONE (20:01)
[2021-08-05] MEDS ORDERED: HEPARIN 5,000 UNIT VIAL IJ PRN (20:30)
[2021-08-05] MEDS: INSULIN GLARGINE 100 UNITS/ML 10 ML VIAL SQ SCH (21:07)
[2021-08-05] MEDS ORDERED: MIDAZOLAM 100MG-0.9% NS 100ML 100ML BAG IV PRN (21:30)
[2021-08-05] MEDS ORDERED: MIDAZOLAM 100MG-0.9% NS 100ML 100 ML IV SCH (21:30)
[2021-08-05 21:39] LABS: ABG BASE EXCESS -3.2 mmol/L (-2.0-3.0); ABG HCO3 23.1 mmol/L (21.0-28.0); ABG OXYGEN SATURATION 90.1 % (95.0-99.0); ABG PCO2 46 mmHg (35-48)
[2021-08-05] MEDS ORDERED: SOLU-MEDROL 40MG VIAL IVP SCH (22:00)
[2021-08-06] VITALS (26 sets, daily range): BP systolic 92–183; BP diastolic 42–78
[2021-08-06] MEDS: HEPARIN 5,000 UNIT VIAL SQ SCH ×3 (04:50→21:47)
[2021-08-06] MEDS: ALBUTEROL INHALER 90MCG/INH IH SCH ×4 (04:52→23:14)
[2021-08-06 05:02] LABS: BASOPHILS % (AUTO) 0.1 % (0.0-5.0); HEMATOCRIT 36.7 % (42-54); LYMPHOCYTES % (AUTO) 2.3 % (21.0-51.0); MEAN CORPUSCULAR HEMOGLOBIN 29.4 pg (27.0-33.0); MEAN CORPUSCULAR HGB CONC 32.4 g/dL (32.0-36.0); MEAN CORPUSCULAR VOLUME 90.6 fL (79-99); MONOCYTES % (AUTO) 2.7 % (3.0-13.0); PLATELET COUNT (AUTO) 157 K/uL (130-400); RED BLOOD CELL COUNT(AUTO) 4.05 MIL/uL (4.50-6.20); RED CELL DISTRIBUTION WIDTH 14.2 % (11.0-15.5); WHITE BLOOD COUNT (AUTO) 16.6 K/uL (4.8-10.8)
[2021-08-06] MEDS: NOREPINEPHRINE 4MG/NS 250ML 250 ML IV SCH (05:04)
[2021-08-06] MEDS: DEXMEDETOMIDINE 400MCG/NS100ML IV PRN ×3 (05:05→20:29)
[2021-08-06] MEDS: SOLU-MEDROL 40MG VIAL IVP SCH ×3 (05:24→21:48)
[2021-08-06] MEDS: PROPOFOL 1000 MG/100 ML 100 ML IV SCH ×4 (05:27→20:29)
[2021-08-06] MEDS: INSULIN HUMULIN R 100 UNIT/ML 3ML SQ SCH ×7 (05:27→23:14)
[2021-08-06 05:44] LABS: ALBUMIN 2.3 g/dL (3.5-5.0); BILIRUBIN,TOTAL 0.6 mg/dL (0.2-1.0); CREATININE 4.8 mg/dL (0.5-1.5); PHOSPHORUS 4.8 mg/dL (2.5-4.9); POTASSIUM 4.7 mmol/L (3.5-5.1); TOTAL PROTEIN, SERUM 7.9 g/dL (6.0-8.3)
[2021-08-06 06:02] LABS: CRP QUANTITATIVE 305.7 mg/L (0.00-9.0)
[2021-08-06] MEDS: FAMOTIDINE 20MG VIAL IV SCH (08:31)
[2021-08-06 10:01] LABS: ABG BASE EXCESS -4.1 mmol/L (-2.0-3.0); ABG HCO3 22.1 mmol/L (21.0-28.0); ABG OXYGEN SATURATION 91.8 % (95.0-99.0); ABG PCO2 45 mmHg (35-48)
[2021-08-06] MEDS ORDERED: 0.9% NACL 250ML 250 ML ONE (10:13)
[2021-08-06] MEDS: DOXYCYCLINE 100MG+NS 250ML 250 ML IV SCH ×2 (10:16→23:13)
[2021-08-06] MEDS: CEFTRIAXONE 1G VIAL IV SCH (10:17)
[2021-08-06] MEDS: PANTOPRAZOLE 40 MG/VIAL IVP SCH ×2 (11:03→20:30)
[2021-08-06] MEDS ORDERED: PHARMACY COMMUNICATION MISC SCH (15:49)
[2021-08-06] MEDS: CISATRACURIUM BESYLATE 100 MG in 0.9%NACL 100ML 100 ML IV SCH (16:52)
[2021-08-06] MEDS: INSULIN GLARGINE 100 UNITS/ML 10 ML VIAL SQ SCH (20:30)
[2021-08-07] VITALS (59 sets, daily range): BP systolic 86–165; BP diastolic 41–83
[2021-08-07] MEDS: PROPOFOL 1000 MG/100 ML 100 ML IV SCH ×5 (02:21→22:52)
[2021-08-07 03:54] LABS: ABG BASE EXCESS -4.4 mmol/L (-2.0-3.0); ABG HCO3 20.5 mmol/L (21.0-28.0); ABG PCO2 38 mmHg (35-48)
[2021-08-07 04:09] LABS: ABG BASE EXCESS -4.8 mmol/L (-2.0-3.0); ABG HCO3 21.8 mmol/L (21.0-28.0); ABG OXYGEN SATURATION 79.9 % (95.0-99.0); ABG PCO2 46 mmHg (35-48)
[2021-08-07] MEDS: ALBUTEROL INHALER 90MCG/INH IH SCH ×4 (05:26→23:24)
[2021-08-07] MEDS: SOLU-MEDROL 40MG VIAL IVP SCH ×3 (05:26→22:51)
[2021-08-07] MEDS: HEPARIN 5,000 UNIT VIAL SQ SCH ×3 (05:26→20:48)
[2021-08-07 05:37] LABS: BASOPHILS % (AUTO) 0.2 % (0.0-5.0); HEMATOCRIT 39.7 % (42-54); LYMPHOCYTES % (AUTO) 4.2 % (21.0-51.0); MEAN CORPUSCULAR HEMOGLOBIN 29.6 pg (27.0-33.0); MEAN CORPUSCULAR HGB CONC 32.2 g/dL (32.0-36.0); MEAN CORPUSCULAR VOLUME 91.7 fL (79-99); MONOCYTES % (AUTO) 3.2 % (3.0-13.0); NEUTROPHILS % (AUTO) 90.8 % (40.0-77.0); PLATELET COUNT (AUTO) 171 K/uL (130-400); RED BLOOD CELL COUNT(AUTO) 4.33 MIL/uL (4.50-6.20); RED CELL DISTRIBUTION WIDTH 14.1 % (11.0-15.5); WHITE BLOOD COUNT (AUTO) 11.6 K/uL (4.8-10.8)
[2021-08-07] MEDS: INSULIN HUMULIN R 100 UNIT/ML 3ML SQ SCH ×6 (05:55→19:13)
[2021-08-07 06:00] LABS: ALBUMIN 2.3 g/dL (3.5-5.0); BILIRUBIN,TOTAL 0.5 mg/dL (0.2-1.0); CREATININE 6.3 mg/dL (0.5-1.5); MAGNESIUM 2.4 mg/dL (1.80-2.40); PHOSPHORUS 5.9 mg/dL (2.5-4.9); POTASSIUM 4.8 mmol/L (3.5-5.1); TOTAL PROTEIN, SERUM 7.4 g/dL (6.0-8.3)
[2021-08-07 06:27] LABS: CRP QUANTITATIVE 253.7 mg/L (0.00-9.0)
[2021-08-07] MEDS: PANTOPRAZOLE 40 MG/VIAL IVP SCH ×2 (08:39→20:37)
[2021-08-07 09:19] LABS: INR 1.1 (0.85-1.15); PROTHROMBIN TIME 11.9 SEC (9.6-11.6)
[2021-08-07] MEDS: DOXYCYCLINE 100MG+NS 250ML 250 ML IV SCH ×2 (11:16→22:51)
[2021-08-07] MEDS: CEFTRIAXONE 1G VIAL IV SCH (11:16)
[2021-08-07] MEDS: DEXMEDETOMIDINE 400MCG/NS100ML IV PRN ×2 (13:09→18:46)
[2021-08-07] MEDS ORDERED: NOREPINEPHRINE 4MG/NS 250ML 250 ML IV SCH (18:30)
[2021-08-07] MEDS: CISATRACURIUM BESYLATE 100 MG in 0.9%NACL 100ML 100 ML IV SCH (20:14)
[2021-08-07] MEDS: INSULIN GLARGINE 100 UNITS/ML 10 ML VIAL SQ SCH (20:39)
[2021-08-08] VITALS (88 sets, daily range): BP systolic 56–161; BP diastolic 22–96
[2021-08-08] MEDS: CISATRACURIUM BESYLATE 100 MG in 0.9%NACL 100ML 100 ML IV SCH ×4 (01:57→20:27)
[2021-08-08] MEDS: DEXMEDETOMIDINE 400MCG/NS100ML IV PRN ×4 (01:57→16:28)
[2021-08-08] MEDS: PROPOFOL 1000 MG/100 ML 100 ML IV SCH ×3 (03:32→20:25)
[2021-08-08 03:40] LABS: ABG BASE EXCESS -6.2 mmol/L (-2.0-3.0); ABG OXYGEN SATURATION 91.2 % (95.0-99.0); ABG PCO2 48 mmHg (35-48)
[2021-08-08] MEDS: HEPARIN 5,000 UNIT VIAL SQ SCH ×3 (05:00→20:39)
[2021-08-08] MEDS: SOLU-MEDROL 40MG VIAL IVP SCH ×2 (05:37→12:44)
[2021-08-08] MEDS: ALBUTEROL INHALER 90MCG/INH IH SCH ×3 (05:37→18:00)
[2021-08-08] MEDS: INSULIN HUMULIN R 100 UNIT/ML 3ML SQ SCH ×7 (06:00→18:00)
[2021-08-08 06:42] LABS: BASOPHILS % (AUTO) 0.1 % (0.0-5.0); EOSINOPHILS % (AUTO) 0.6 % (0.0-8.0); HEMATOCRIT 38.3 % (42-54); LYMPHOCYTES % (AUTO) 1.6 % (21.0-51.0); MEAN CORPUSCULAR HGB CONC 31.9 g/dL (32.0-36.0); MEAN CORPUSCULAR VOLUME 91.2 fL (79-99); MONOCYTES % (AUTO) 3.5 % (3.0-13.0); NEUTROPHILS % (AUTO) 91.4 % (40.0-77.0); NUCLEATED RED BLOOD CELLS 0.2 % (0.0-0.19); PLATELET COUNT (AUTO) 236 K/uL (130-400); RED CELL DISTRIBUTION WIDTH 14.2 % (11.0-15.5); WHITE BLOOD COUNT (AUTO) 21.7 K/uL (4.8-10.8)
[2021-08-08 07:08] LABS: BILIRUBIN,TOTAL 0.7 mg/dL (0.2-1.0); CREATININE 5.7 mg/dL (0.5-1.5); CRP QUANTITATIVE 169.5 mg/L (0.00-9.0); POTASSIUM 3.9 mmol/L (3.5-5.1); TOTAL PROTEIN, SERUM 7.2 g/dL (6.0-8.3)
[2021-08-08] MEDS: PANTOPRAZOLE 40 MG/VIAL IVP SCH ×2 (08:48→20:39)
[2021-08-08] MEDS: CEFTRIAXONE 1G VIAL IV SCH (11:03)
[2021-08-08] MEDS: DOXYCYCLINE 100MG+NS 250ML 250 ML IV SCH (11:03)
[2021-08-08] MEDS: PHARMACY COMMUNICATION MISC SCH ×6 (11:30→20:42)
[2021-08-08] MEDS: NOREPINEPHRINE 4MG/NS 250ML 250 ML IV SCH (11:55)
[2021-08-08] MEDS: 0.9%NACL 50ML 50 ML IV SCH (13:00)
[2021-08-08] MEDS ORDERED: PHARMACY COMMUNICATION MISC SCH (14:30)
[2021-08-08] MEDS: ZOSYN 3.375GM +NS 50ML IV SCH (15:14)
[2021-08-08] MEDS ORDERED: NOREPINEPHRINE 8MG/NS 250 ML 250 ML IV ONE (17:17)
[2021-08-08 18:11] LABS: ABG BASE EXCESS -7.2 mmol/L (-2.0-3.0); ABG OXYGEN SATURATION 81.3 % (95.0-99.0); ABG PCO2 54 mmHg (35-48)
[2021-08-08 18:32] LABS: APPEARANCE,URINE Cloudy (CLEAR); BILIRUBIN,URINE Small (NEGATIVE); COLOR,URINE Dark Yellow (YELLOW); GLUCOSE, URINE (UA) Negative (NEGATIVE); KETONES,URINE Trace mg/dL (NEGATIVE); LEUKOCYTE ESTERASE ,URINE Moderate (NEGATIVE); NITRATE,URINE Negative (NEGATIVE); OCCULT BLOOD,URINE Small (NEGATIVE); PROTEIN,URINE >=1000 mg/dL (NEGATIVE)
[2021-08-08 18:39] LABS: AMPHET/METH SCREEN,URINE NEGATIVE (NEGATIVE); BARBITURATE SCREEN, URINE NEGATIVE (NEGATIVE); BENZODIAZEPINES SCREEN,URINE NEGATIVE (NEGATIVE); CANNABINOID SCREEN,URINE NEGATIVE (NEGATIVE); COCAINE SCREEN,URINE NEGATIVE (NEGATIVE); OPIATE SCREEN,URINE NEGATIVE (NEGATIVE); PHENCYCLIDINE SCREEN,URINE NEGATIVE (NEGATIVE)
[2021-08-08 18:45] LABS: BACTERIA,URINE Few /HPF (None Seen); SQUAMOUS EPITHELIAL CELL,UR Rare /HPF (0-2); YEAST,URINE BUDDING Few /HPF (None Seen)
[2021-08-08 18:46] LABS: WBC,URINE 26-50 /HPF (0-1)
[2021-08-08] MEDS: INSULIN GLARGINE 100 UNITS/ML 10 ML VIAL SQ SCH (20:41)
[2021-08-09] VITALS (88 sets, daily range): BP systolic 72–160; BP diastolic 19–68
[2021-08-09] MEDS: ZOSYN 3.375GM +NS 50ML IV SCH (00:15)
[2021-08-09] MEDS: DOXYCYCLINE 100MG+NS 250ML 250 ML IV SCH ×2 (00:18→10:31)
[2021-08-09] MEDS: ALBUTEROL INHALER 90MCG/INH IH SCH ×5 (00:18→23:49)
[2021-08-09] MEDS: SOLU-MEDROL 40MG VIAL IVP SCH ×4 (00:18→20:53)
[2021-08-09] MEDS: PHARMACY COMMUNICATION MISC SCH ×13 (00:18→23:30)
[2021-08-09] MEDS: DEXMEDETOMIDINE 400MCG/NS100ML IV PRN ×7 (00:29→23:26)
[2021-08-09] MEDS: PROPOFOL 1000 MG/100 ML 100 ML IV SCH ×7 (01:01→23:27)
[2021-08-09] MEDS: 0.9%NACL 50ML 50 ML IV SCH ×2 (02:42→10:44)
[2021-08-09 03:12] LABS: ABG BASE EXCESS -9.8 mmol/L (-2.0-3.0); ABG HCO3 18.5 mmol/L (21.0-28.0); ABG OXYGEN SATURATION 86.2 % (95.0-99.0); ABG PCO2 50 mmHg (35-48)
[2021-08-09] MEDS: HEPARIN 5,000 UNIT VIAL SQ SCH ×3 (04:43→20:52)
[2021-08-09] MEDS: INSULIN HUMULIN R 100 UNIT/ML 3ML SQ SCH ×6 (05:37→18:12)
[2021-08-09 06:30] LABS: BASOPHILS % (AUTO) 0.3 % (0.0-5.0); EOSINOPHILS % (AUTO) 0.7 % (0.0-8.0); HEMATOCRIT 38.1 % (42-54); LYMPHOCYTES % (AUTO) 1.3 % (21.0-51.0); MEAN CORPUSCULAR HEMOGLOBIN 29.3 pg (27.0-33.0); MEAN CORPUSCULAR HGB CONC 31.2 g/dL (32.0-36.0); MEAN CORPUSCULAR VOLUME 93.8 fL (79-99); MONOCYTES % (AUTO) 2.4 % (3.0-13.0); NEUTROPHILS % (AUTO) 90.6 % (40.0-77.0); NUCLEATED RED BLOOD CELLS 0.2 % (0.0-0.19); PLATELET COUNT (AUTO) 252 K/uL (130-400); RED BLOOD CELL COUNT(AUTO) 4.06 MIL/uL (4.50-6.20); RED CELL DISTRIBUTION WIDTH 14.5 % (11.0-15.5)
[2021-08-09] MEDS: CISATRACURIUM BESYLATE 100 MG in 0.9%NACL 100ML 100 ML IV SCH ×4 (06:34→23:34)
[2021-08-09 06:48] LABS: ALBUMIN 1.5 g/dL (3.5-5.0); CREATININE 7.3 mg/dL (0.5-1.5); POTASSIUM 5.6 mmol/L (3.5-5.1); TOTAL PROTEIN, SERUM 6.9 g/dL (6.0-8.3)
[2021-08-09 06:57] LABS: WHITE BLOOD COUNT (AUTO) 31.9 K/uL (4.8-10.8)
[2021-08-09 07:19] LABS: CRP QUANTITATIVE 465.3 mg/L (0.00-9.0)
[2021-08-09 07:53] LABS: BAND NEUTROPHILS % (MANUAL) 1 % (0-2); MAN.DIFF COMMENT-IMPRESSION MANUAL DIFFERENTIAL; MONOCYTES % (MANUAL) 2 % (2-9); PLATELET MORPHOLOGY COMMENT ADEQUATE; SEGMENTED NEUTROPHILS % 97 % (40-70)
[2021-08-09] MEDS: ACETAMINOPHEN 325 MG TAB PO PRN ×2 (08:51→16:27)
[2021-08-09] MEDS: PANTOPRAZOLE 40 MG/VIAL IVP SCH ×2 (08:51→22:01)
[2021-08-09] MEDS ORDERED: SODIUM BICARB 50MEQ 50ML VIAL IV SCH ×2 (09:56→10:00)
[2021-08-09] MEDS ORDERED: SODIUM BICARB 50MEQ 50ML VIAL 100 ML ONE (09:58)
[2021-08-09] MEDS ORDERED: CALCIUM GLUC 1GM VIAL IV SCH (10:00)
[2021-08-09] MEDS ORDERED: DEXTROSE 50%-WATER 50 ML DISP.SYRIN IV SCH (10:00)
[2021-08-09] MEDS ORDERED: INSULIN HUMULIN R 100 UNIT/ML 3ML SQ SCH (10:00)
[2021-08-09] MEDS ORDERED: CALCIUM GLUC 1GM VIAL 1 GM in 0.9%NACL 50ML 50 ML IV SCH (10:39)
[2021-08-09] MEDS ORDERED: FENTANYL CITRATE PF 0.05 MG/ML 1,000 MCG in 0.9%NACL 100ML 100 ML IVPB SCH (12:30)
[2021-08-09 14:06] LABS: POTASSIUM 5.3 mmol/L (3.5-5.1)
[2021-08-09 14:08] LABS: CREATININE 7.9 mg/dL (0.5-1.5)
[2021-08-09] MEDS: MEROPENEM 500 MG VIAL IVP SCH ×2 (16:09→23:36)
[2021-08-09] MEDS ORDERED: VANCOMYCIN PROTOCOL PER PHARMACY IV SCH (17:00)
[2021-08-09] MEDS ORDERED: LINEZOLID 600 MG/ISO-OSM 300 ML IV SCH (17:00)
[2021-08-09] MEDS: FENTANYL 2500MCG+NS 250ML 250 ML IV SCH (17:41)
[2021-08-09] MEDS ORDERED: VANCOMYCIN 2GM/500ML NS IV ONE ×2 (18:00)
[2021-08-09] MEDS: MIDODRINE HCL 5 MG TABLET PO SCH (18:08)
[2021-08-09] MEDS: NOREPINEPHRINE 8MG/NS 250 ML 250 ML IV SCH (18:16)
[2021-08-09] MEDS ORDERED: ALBUMIN (HUMAN) 25% 100 ML IV ONE ×2 (19:00→22:30)
[2021-08-09 19:33] LABS: ABG BASE EXCESS -7.8 mmol/L (-2.0-3.0); ABG HCO3 20.2 mmol/L (21.0-28.0); ABG OXYGEN SATURATION 78.4 % (95.0-99.0); ABG PCO2 50 mmHg (35-48)
[2021-08-09] MEDS: INSULIN GLARGINE 100 UNITS/ML 10 ML VIAL SQ SCH (20:23)
[2021-08-10] VITALS (72 sets, daily range): BP systolic 94–157; BP diastolic 32–95
[2021-08-10] MEDS: INSULIN HUMULIN R 100 UNIT/ML 3ML SQ SCH ×7 (01:10→17:57)
[2021-08-10] MEDS: PHARMACY COMMUNICATION MISC SCH ×12 (01:30→22:23)
[2021-08-10] MEDS: DEXMEDETOMIDINE 400MCG/NS100ML IV PRN ×5 (02:09→16:29)
[2021-08-10] MEDS: 0.9%NACL 50ML 50 ML IV SCH (02:09)
[2021-08-10] MEDS: MIDODRINE HCL 5 MG TABLET PO SCH ×3 (02:09→17:57)
[2021-08-10 04:07] LABS: ABG BASE EXCESS -7.6 mmol/L (-2.0-3.0); ABG HCO3 20.7 mmol/L (21.0-28.0); ABG OXYGEN SATURATION 87.8 % (95.0-99.0); ABG PCO2 55 mmHg (35-48)
[2021-08-10] MEDS: SOLU-MEDROL 40MG VIAL IVP SCH ×3 (05:33→21:10)
[2021-08-10] MEDS: HEPARIN 5,000 UNIT VIAL SQ SCH ×2 (05:33→13:30)
[2021-08-10] MEDS: ALBUTEROL INHALER 90MCG/INH IH SCH ×4 (05:33→23:18)
[2021-08-10 07:26] LABS: BASOPHILS % (AUTO) 0.2 % (0.0-5.0); LYMPHOCYTES % (AUTO) 2.6 % (21.0-51.0); MEAN CORPUSCULAR HEMOGLOBIN 29.4 pg (27.0-33.0); MEAN CORPUSCULAR HGB CONC 31.9 g/dL (32.0-36.0); MEAN CORPUSCULAR VOLUME 92.2 fL (79-99); NEUTROPHILS % (AUTO) 89.1 % (40.0-77.0); NUCLEATED RED BLOOD CELLS 0.1 % (0.0-0.19); PLATELET COUNT (AUTO) 143 K/uL (130-400); RED BLOOD CELL COUNT(AUTO) 3.47 MIL/uL (4.50-6.20); RED CELL DISTRIBUTION WIDTH 14.4 % (11.0-15.5); WHITE BLOOD COUNT (AUTO) 22.5 K/uL (4.8-10.8)
[2021-08-10 07:45] LABS: ALBUMIN 1.7 g/dL (3.5-5.0); BILIRUBIN,TOTAL 0.8 mg/dL (0.2-1.0); CREATININE 6.4 mg/dL (0.5-1.5); POTASSIUM 4.9 mmol/L (3.5-5.1); TOTAL PROTEIN, SERUM 6.5 g/dL (6.0-8.3)
[2021-08-10 08:21] LABS: CRP QUANTITATIVE 351.5 mg/L (0.00-9.0)
[2021-08-10] MEDS: PROPOFOL 1000 MG/100 ML 100 ML IV SCH ×4 (08:35→21:14)
[2021-08-10] MEDS: PANTOPRAZOLE 40 MG/VIAL IVP SCH ×2 (09:01→21:10)
[2021-08-10] MEDS: NOREPINEPHRINE 8MG/NS 250 ML 250 ML IV SCH (09:02)
[2021-08-10] MEDS: FENTANYL 2500MCG+NS 250ML 250 ML IV SCH ×2 (09:03→23:16)
[2021-08-10] MEDS: CISATRACURIUM BESYLATE 100 MG in 0.9%NACL 100ML 100 ML IV SCH ×3 (12:47→19:05)
[2021-08-10] MEDS: MEROPENEM 500 MG VIAL IVP SCH (13:30)
[2021-08-10] MEDS: VANCOMYCIN KIT 1 GM/250 ML IV.KIT IV SCH (16:22)
[2021-08-10] MEDS: 0.9% NACL 250ML 250 ML IV SCH (16:22)
[2021-08-10 18:04] LABS: ABG BASE EXCESS -3.9 mmol/L (-2.0-3.0); ABG OXYGEN SATURATION 86.6 % (95.0-99.0); ABG PCO2 43 mmHg (35-48)
[2021-08-10] MEDS: HEPARIN 25,000 UNITS/250ML D5W 250 ML IV SCH (18:10)
[2021-08-10] MEDS: INSULIN GLARGINE 100 UNITS/ML 10 ML VIAL SQ SCH (22:22)
[2021-08-11] VITALS (45 sets, daily range): BP systolic 84–156; BP diastolic 37–68
[2021-08-11] MEDS: PHARMACY COMMUNICATION MISC SCH ×9 (01:30→12:43)
[2021-08-11] MEDS: CISATRACURIUM BESYLATE 100 MG in 0.9%NACL 100ML 100 ML IV SCH ×4 (01:52→21:31)
[2021-08-11] MEDS: MEROPENEM 500 MG VIAL IVP SCH ×2 (01:58→12:02)
[2021-08-11] MEDS: MIDODRINE HCL 5 MG TABLET PO SCH ×3 (01:58→17:39)
[2021-08-11] MEDS: PROPOFOL 1000 MG/100 ML 100 ML IV SCH ×5 (01:59→19:47)
[2021-08-11] MEDS: ALBUTEROL INHALER 90MCG/INH IH SCH ×3 (05:32→17:39)
[2021-08-11] MEDS: DEXMEDETOMIDINE 400MCG/NS100ML IV PRN (05:32)
[2021-08-11] MEDS: INSULIN HUMULIN R 100 UNIT/ML 3ML SQ SCH ×7 (05:34→17:41)
[2021-08-11] MEDS: SOLU-MEDROL 40MG VIAL IVP SCH ×2 (06:24→14:12)
[2021-08-11 07:07] LABS: ABG BASE EXCESS -6.8 mmol/L (-2.0-3.0); ABG HCO3 20.8 mmol/L (21.0-28.0); ABG OXYGEN SATURATION 84.8 % (95.0-99.0); ABG PCO2 51 mmHg (35-48)
[2021-08-11 07:45] LABS: BASOPHILS % (AUTO) 0.4 % (0.0-5.0); HEMATOCRIT 37.8 % (42-54); LYMPHOCYTES % (AUTO) 1.7 % (21.0-51.0); MEAN CORPUSCULAR HEMOGLOBIN 29.1 pg (27.0-33.0); MEAN CORPUSCULAR VOLUME 90.9 fL (79-99); MONOCYTES % (AUTO) 3.1 % (3.0-13.0); NUCLEATED RED BLOOD CELLS 0.2 % (0.0-0.19); PLATELET COUNT (AUTO) 138 K/uL (130-400); RED BLOOD CELL COUNT(AUTO) 4.16 MIL/uL (4.50-6.20); RED CELL DISTRIBUTION WIDTH 14.5 % (11.0-15.5); WHITE BLOOD COUNT (AUTO) 28.2 K/uL (4.8-10.8)
[2021-08-11 08:09] LABS: ALBUMIN 1.6 g/dL (3.5-5.0); BILIRUBIN,TOTAL 0.7 mg/dL (0.2-1.0); CREATININE 5.1 mg/dL (0.5-1.5); POTASSIUM 4.6 mmol/L (3.5-5.1); TOTAL PROTEIN, SERUM 6.4 g/dL (6.0-8.3)
[2021-08-11 08:27] LABS: CRP QUANTITATIVE 189.8 mg/L (0.00-9.0)
[2021-08-11] MEDS: PANTOPRAZOLE 40 MG/VIAL IVP SCH ×2 (08:36→21:23)
[2021-08-11] MEDS: HEPARIN 25,000 UNITS/250ML D5W 250 ML IV SCH (08:39)
[2021-08-11] MEDS: NOREPINEPHRINE 8MG/NS 250 ML 250 ML IV SCH (08:41)
[2021-08-11] MEDS ORDERED: PHARMACY COMMUNICATION MISC SCH (09:00)
[2021-08-11] MEDS ORDERED: ZOSYN 3.375GM+NS 50ML 50 ML IV SCH (10:00)
[2021-08-11] MEDS: FENTANYL 2500MCG+NS 250ML 250 ML IV SCH (19:46)
[2021-08-11] MEDS: INSULIN GLARGINE 100 UNITS/ML 10 ML VIAL SQ SCH (21:24)
[2021-08-12] VITALS (32 sets, daily range): BP systolic 97–177; BP diastolic 35–135
[2021-08-12] MEDS: PROPOFOL 1000 MG/100 ML 100 ML IV SCH ×5 (00:15→21:31)
[2021-08-12] MEDS: ALBUTEROL INHALER 90MCG/INH IH SCH ×4 (00:15→16:57)
[2021-08-12] MEDS: INSULIN HUMULIN R 100 UNIT/ML 3ML SQ SCH ×7 (00:16→17:39)
[2021-08-12 00:51] LABS: BASOPHILS % (AUTO) 0.5 % (0.0-5.0); HEMATOCRIT 34.2 % (42-54); MEAN CORPUSCULAR HEMOGLOBIN 29.2 pg (27.0-33.0); MEAN CORPUSCULAR HGB CONC 32.7 g/dL (32.0-36.0); MEAN CORPUSCULAR VOLUME 89.3 fL (79-99); MONOCYTES % (AUTO) 3.4 % (3.0-13.0); NUCLEATED RED BLOOD CELLS 0.2 % (0.0-0.19); PLATELET COUNT (AUTO) 147 K/uL (130-400); RED BLOOD CELL COUNT(AUTO) 3.83 MIL/uL (4.50-6.20); RED CELL DISTRIBUTION WIDTH 14.6 % (11.0-15.5)
[2021-08-12 00:57] LABS: WHITE BLOOD COUNT (AUTO) 39.6 K/uL (4.8-10.8)
[2021-08-12 01:13] LABS: ALBUMIN 1.6 g/dL (3.5-5.0); BILIRUBIN,TOTAL 0.7 mg/dL (0.2-1.0); CRP QUANTITATIVE 167.2 mg/L (0.00-9.0); POTASSIUM 4.7 mmol/L (3.5-5.1); TOTAL PROTEIN, SERUM 6.5 g/dL (6.0-8.3)
[2021-08-12 01:27] LABS: BAND NEUTROPHILS % (MANUAL) 2 % (0-2); LYMPHOCYTES % (MANUAL) 1 % (22-44); MONOCYTES % (MANUAL) 3 % (2-9); SEGMENTED NEUTROPHILS % 94 % (40-70)
[2021-08-12 01:28] LABS: MAN.DIFF COMMENT-IMPRESSION MANUAL DIFFERENTIAL
[2021-08-12] MEDS: MIDODRINE HCL 5 MG TABLET PO SCH ×3 (01:35→16:25)
[2021-08-12] MEDS: MEROPENEM 500 MG VIAL IVP SCH ×2 (01:35→12:35)
[2021-08-12] MEDS: SOLU-MEDROL 40MG VIAL IVP SCH ×2 (01:35→13:02)
[2021-08-12 03:34] LABS: ABG BASE EXCESS -9.4 mmol/L (-2.0-3.0); ABG HCO3 19.9 mmol/L (21.0-28.0); ABG OXYGEN SATURATION 87.7 % (95.0-99.0); ABG PCO2 59 mmHg (35-48)
[2021-08-12] MEDS: CISATRACURIUM BESYLATE 100 MG in 0.9%NACL 100ML 100 ML IV SCH ×2 (05:23→09:26)
[2021-08-12] MEDS: PANTOPRAZOLE 40 MG/VIAL IVP SCH ×2 (07:53→20:33)
[2021-08-12] MEDS: VANCOMYCIN KIT 1 GM/250 ML IV.KIT IV SCH (08:30)
[2021-08-12] MEDS: 0.9% NACL 250ML 250 ML IV SCH (08:31)
[2021-08-12] MEDS: HEPARIN 25,000 UNITS/250ML D5W 250 ML IV SCH (13:56)
[2021-08-12] MEDS ORDERED: LEVOFLOXACIN 500 MG/D5W 100 ML 100 ML IV SCH (14:30)
[2021-08-12] MEDS: FENTANYL 2500MCG+NS 250ML 250 ML IV SCH (20:31)
[2021-08-12] MEDS ORDERED: SODIUM BICARB 50MEQ 50ML VIAL 100 ML ONE (23:06)
[2021-08-12] MEDS ORDERED: EPINEPHRINE PF 1MG AMP ONE (23:12)
== END 2021-08-12 23:19 | DRG 207 ==
LOC: EDH 09:24 → EDHIP 10:28 → 4AH 08-05 10:07 → 2AH 08-05 17:41 → 2BH 08-06 19:05
PROVIDERS: ADMIT Internal Medicine; ATTEND Internal Medicine
PROC: 5A1D70Z Performance of Urinary Filtration, Intermittent, Less than 6 Hours Per Day (ICD-10-PCS; 2021-08-03)
PROC: 5A1955Z Respiratory Ventilation, Greater than 96 Consecutive Hours (ICD-10-PCS; 2021-08-05)
PROC: 5A1D70Z Performance of Urinary Filtration, Intermittent, Less than 6 Hours Per Day (ICD-10-PCS; 2021-08-05)
PROC: 5A09357 Assistance with Respiratory Ventilation, Less than 24 Consecutive Hours, Continuous Positive Airway Pressure (ICD-10-PCS; 2021-08-05)
PROC: 5A09357 Assistance with Respiratory Ventilation, Less than 24 Consecutive Hours, Continuous Positive Airway Pressure (ICD-10-PCS; 2021-08-05)
PROC: 0BH17EZ Insertion of Endotracheal Airway into Trachea, Via Natural or Artificial Opening (ICD-10-PCS; 2021-08-05)
PROC: 5A0935A Assistance with Respiratory Ventilation, Less than 24 Consecutive Hours, High Flow/Velocity Cannula (ICD-10-PCS; 2021-08-05)
PROC: 5A1D70Z Performance of Urinary Filtration, Intermittent, Less than 6 Hours Per Day (ICD-10-PCS; 2021-08-07)
PROC: 02HV33Z Insertion of Infusion Device into Superior Vena Cava, Percutaneous Approach (ICD-10-PCS; 2021-08-07)
PROC: B548ZZA Ultrasonography of Superior Vena Cava, Guidance (ICD-10-PCS; 2021-08-07)
PROC: 5A1D70Z Performance of Urinary Filtration, Intermittent, Less than 6 Hours Per Day (ICD-10-PCS; 2021-08-09)
PROC: 5A1D70Z Performance of Urinary Filtration, Intermittent, Less than 6 Hours Per Day (ICD-10-PCS; 2021-08-10)
PROC: 5A12012 Performance of Cardiac Output, Single, Manual (ICD-10-PCS; principal; 2021-08-12)
PROC: 5A1D70Z Performance of Urinary Filtration, Intermittent, Less than 6 Hours Per Day (ICD-10-PCS; 2021-08-12)
DX: U07.1 COVID-19 (principal); A41.9 Sepsis, unspecified organism; J12.82 Pneumonia due to coronavirus disease 2019; J80 Acute respiratory distress syndrome; N18.6 End stage renal disease; J15.5 Pneumonia due to Escherichia coli; R65.21 Severe sepsis with septic shock; I12.0 Hypertensive chronic kidney disease with stage 5 chronic kidney disease or end stage renal disease; D68.69 Other thrombophilia; E87.0 Hyperosmolality and hypernatremia; E87.1 Hypo-osmolality and hyponatremia; J95.851 Ventilator associated pneumonia; Z16.12 Extended spectrum beta lactamase (ESBL) resistance; Z16.24 Resistance to multiple antibiotics; D69.6 Thrombocytopenia, unspecified; D64.9 Anemia, unspecified; E66.01 Morbid (severe) obesity due to excess calories; E78.00 Pure hypercholesterolemia, unspecified; E78.5 Hyperlipidemia, unspecified; E87.5 Hyperkalemia; E87.70 Fluid overload, unspecified; D89.839 Cytokine release syndrome, grade unspecified; E11.22 Type 2 diabetes mellitus with diabetic chronic kidney disease; B96.20 Unspecified Escherichia coli [E. coli] as the cause of diseases classified elsewhere; E11.51 Type 2 diabetes mellitus with diabetic peripheral angiopathy without gangrene; E87.8 Other disorders of electrolyte and fluid balance, not elsewhere classified; Z68.35 Body mass index [BMI] 35.0-35.9, adult; Z99.2 Dependence on renal dialysis; Z79.4 Long term (current) use of insulin; Z89.511 Acquired absence of right leg below knee; Z89.512 Acquired absence of left leg below knee; Z88.5 Allergy status to narcotic agent; Z83.3 Family history of diabetes mellitus; Z82.49 Family history of ischemic heart disease and other diseases of the circulatory system; B96.89 Other specified bacterial agents as the cause of diseases classified elsewhere
CPT/HCPCS: 31500; 36415; 36600; 71045; 80048; 80053; 80076; 80202; 80305; 81001; 82435; 82550; 82728; 82803; 82947; 82948; 83036; 83605; 83615; 83735; 84100; 84132; 84145; 84295; 84484; 85018; 85025; 85378; 85610; 85651; 85730; 86140; 86704; 86706; 87040; 87071; 87077; 87088; 87186; 87205; 87340; 87635; 90935; 92950; 93005; 94002; 94003; 94660; 97039; C1894; C9113; G0378; J0171; J0461; J0610; J0696; J1100; J1644; J1815; J1956; J2185; J2543; J2704; J2920; J3010; J3370; J3490; J7030; J7040; J7050; J7070; P9046